=== PATIENT | female | born 1970 | race Two or more races ===

== ENCOUNTER 2023-12-25 22:20 | Emergency (ER) | payer MEDICAID ==
[~2023-12-25] VITALS: Ht 160 cm; Wt 61.3 kg
[2023-12-26] MEDS: KETOROLAC TROMETH 60MG/2ML VIAL IM ONE (00:36)
[2023-12-26 01:36] VITALS: BP 111/64; TEMP 97.9
[2023-12-26 01:45] VITALS: PULSE 63; RESP 14; O2SAT 98
[2023-12-26] MEDS ORDERED: IBUP-1455 PO (01:53)
[2023-12-26] MEDS ORDERED: ACE3T PO (01:53)
== END 2023-12-26 02:12 | disposition home or self-care (01) ==
LOC: ER 22:20
DX: S39.012A Strain of muscle, fascia and tendon of lower back, initial encounter (principal); M41.9 Scoliosis, unspecified; V89.2XXA Person injured in unspecified motor-vehicle accident, traffic, initial encounter; Y93.89 Activity, other specified; Y92.89 Other specified places as the place of occurrence of the external cause; Y99.8 Other external cause status
CPT/HCPCS: 72100; 96372; 99283; J1885

== ENCOUNTER 2025-01-01 10:10 | Emergency (ER) | payer MEDICAID ==
[~2025-01-01] VITALS: Ht 160 cm; Wt 63.0 kg
[~2025-01-01 10:10] MED LIST: ACE3T PO; IBUP-1455 PO
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
[2025-01-01] MEDS ORDERED: IBUPROFEN 600 MG TAB PO ONE (10:30)
[2025-01-01 10:34] VITALS: BP 133/85; PULSE 66; RESP 16; TEMP 98; O2SAT 98
== END 2025-01-01 13:30 | disposition left against medical advice (07) ==
LOC: EDBD 10:10 → ER 10:10
DX: S29.012A Strain of muscle and tendon of back wall of thorax, initial encounter (principal); Z79.899 Other long term (current) drug therapy; V89.2XXA Person injured in unspecified motor-vehicle accident, traffic, initial encounter; Y93.89 Activity, other specified; Y92.89 Other specified places as the place of occurrence of the external cause; Y99.8 Other external cause status

== ENCOUNTER 2025-01-19 07:07 | Emergency (ER) | payer MEDICAID ==
[~2025-01-19] VITALS: Ht 160 cm; Wt 61.3 kg
--- NOTE | 2025-01-19 07:50 | ED.PDOC ---
Back pain HPI HPI Comments A 54-YEAR-OLD FEMALE PRESENTS WITH A CHIEF COMPLAINT OF BACK PAIN. PATIENT STATES THAT SHE HAS CHRONIC BACK PAIN FOR THE PAST FEW YEARS. PATIENT MENTIONS THAT SHE HAS SCOLIOSIS. PATIENT REPORTS THAT HER BACK PAIN IS LOCALIZED TO HER RIGHT LUMBAR REGION, RADIATING DOWN TO HER RIGHT LEG. PATIENT DENIES FEVER, CHILLS, SHORTNESS OF BREATH, CHEST PAIN, ABDOMINAL PAIN, NAUSEA, VOMITING, HEADACHE, OR OTHER COMPLAINTS. NO OTHER SYMPTOMS OR MODIFYING FACTORS AT THIS TIME. PATIENT IS ALERT, ORIENTED X 4, AND HAS STEADY GAIT. Chief Complaint: Back Pain Time Seen by MD: 07:47 Reviewed Notes: Nurses Notes, Medications, Allergies Allergies: Coded Allergies: NO KNOWN ALLERGIES (Unverified , 01/01/25) Home Meds Active Scripts Tramadol HCl (Tramadol HCl) 50 Mg Tab, 50 MG PO BID, #20 TAB Prov:BRITTANY GASPAR PA 01/19/25 Acetaminophen W/ Codeine (Tylenol W/Cod #3) 1 Tab Tb, 1 TAB PO Q6HP PRN, #20 TAB Prov:HEIDI BERNAL PAC 12/26/23 Ibuprofen Micronized (Ibuprofen) 800 Mg Tab, 800 MG PO Q8HP PRN, #30 TAB Prov:HEIDI BERNAL PAC 12/26/23 Information Source: Patient Mode of Arrival: Ambulatory Timing: Days, Months Duration: Intermittent, Days Location of Back pain: (R) Lumbar Radiates to: Anterior: (R) Buttocks, (R) Thigh Radiates to: Posterior: (R) Thigh Radiates to: Medial: (R) Buttocks, (R) Thigh Severity: Moderate Prehospital treatment: None Quality: Aching, Burning, Cramping, Sharp Onset: Spontaneous Circumstance: Other History of: Chronic Back Pain Associated signs and symptoms: None Past Medical History Past Medical History (Other): CHRONIC BACK PAIN, SCOLIOSIS Surgical History: Denies all surgeries NEWS VIDEOTAPE EDITOR History: No Pertinent NEWS VIDEOTAPE EDITOR History Family History Family History: Reviewed,noncontributory to illness, No family hx of Cancer, No family hx of DM, No family hx of Heart efren, No family hx of HTN, No family hx ofKidney efren, No family hx of Liver efren, No family hx of Lung efren, No family hx of Stroke Social History Smoker: Non-Smoker Alcohol: Denies ETOH Use Drugs: Denies Drug Use Lives In: Home Constitutional: denies: chills, diaphoresis, fatigue, fever, malaise, sweats, weakness, others EENTM: denies: blurred vision, double vision, ear bleeding, ear discharge, ear drainage, ear pain, ear ringing, eye pain, eye redness, hearing loss, mouth pain, mouth swelling, nasal discharge, nose bleeding, nose congestion, nose pain, photophobia, tearing, throat pain, throat swelling, voice changes, others Respiratory: denies: cough, hemoptysis, orthopnea, SOB at rest, shortness of breath, SOB with excertion, stridor, wheezing, others Cardiovascular: denies: chest pain, dizzy spells, diaphoresis, Dyspnea on exertion, edema, irregular heart beat, left arm pain, lightheadedness, palpitations, PND, syncope, others Gastrointestinal: denies: abdomen distended, abdominal pain, blood streaked bowels, constipated, diarrhea, dysphagia, difficulty swallowing, hematemesis, melena, nausea, poor appetite, poor fluid intake, rectal bleeding, rectal pain, vomiting, others Genitourinary: denies: abnormal vagina bleeding, burning, dyspareunia, dysuria, flank pain, frequency, hematuria, incontinence, pain, , vagina discharge, urgency, others Neurological: denies: dizziness, fainting, headache, left sided numbness, left sided weakness, numbness, paresthesia, pre-existing deficit, right sided n umbness, right sided weakness, seizure, speech problems, tingling, tremors, weakness, others Musculoskeletal: reports: back pain, muscle pain; denies: gout, joint pain, joint swelling, muscle stiffness, neck pain, others Integumetry: denies: bruises, change in color, change in hair/nails, dryness, laceration, lesions, lumps, rash, wounds, others Allergic/Immunocompromised: denies: Difficulty Healing, Frequent Infections, Hives, Itching, others Hematologic/Lymphatic: denies: anemia, blood clots, easy bleeding, easy bruising, swollen glands, others Endocrine: denies: excessive hunger, excessive sweating, excessive thirst, excessive urination, flushing, intolerance to cold, intolerance to heat, unexplained weight gain, unexplained weight loss, others Psychiatric: denies: anxiety, bipolar disorder, depression, hopeless, panic disorder, schizophrenia, sleepless, suicidal, others All Other Systems: Reviewed and Negative Physical Exam General Appearance: No Apparent Distress, Normal HEENT: Normal ENT Inspection, PERRL/EOMI, Pharynx Normal, TMs Normal Neck: Full Range of Motion, Non-Tender, Normal, Normal Inspection Respiratory: Chest Non-Tender, Lungs Clear, No Accessory Muscle Use, No Respiratory Distress, Normal Breath Sounds Cardiovascular: No Edema, No JVD, No Murmur, No Gallop, Normal Peripheral Pulses, Regular Rate/Rhythm Breast Exam: Deferred Gastrointestinal: No Organomegaly, Non Tender, No Pulsatile Mass, Normal Bowel Sounds, Soft Genitalia: Deferred Pelvic: Deferred Rectal: Deferred Extremities: Decreased range of motion, No calf tenderness, Normal capillary refill, No pedal edema, Tender (AND MILD SWELLING ON RIGHT THIGH, NO BONY TENDERNESS AND DEFORMITY, NO DVT SIGNS. ) Musculoskeletal : Location: Bilateral Extremity Location: Back Apperance: Tenderness: Moderate (MUSCLE SPASM ON LOWER BACK, NO BONY TENDERNESS, SWELLING AND DEFORMITY. ) Neurologic: Alert, hematology oncology consultant II-XII nml as Tested, No Motor Deficits, Normal Affect, Normal Mood, No Sensory Deficits Cerebellar Function: Normal Reflexes: Normal Skin: Dry, Normal Color, Warm Peripheral Pulses: 2+ carotid (R), 2+ carotid (L), 2+ dorsalis pedis (R), 2+ dorsalis pedis (L) Lymphatic: No Adenopathy Was a procedure done? Was a procedure done?: No Back Pain Differential Dx Differential Diagnosis: Musculoskeletal Pain, Strain, Other (DVT OF RIGHT LOWER EXTREMITY) X-Ray, Labs, Meds, VS Vital Signs Date Time Temp Pulse Resp B/P (MAP) Pulse Ox O2 Delivery O2 Flow Rate FiO2 01/19/25 07:38 97.5 65 18 120/75 99 97.5 Current Medications Medications (Trade) Dose Ordered Sig/Abelardo Route Start Time Stop Time Status Last Admin Acetaminophen (Tylenol Tablet Or Capsule) 1,000 mg ONCE ONCE PO 01/19/25 08:00 01/19/25 08:01 DC 01/19/25 07:55 X-Ray, Labs, Meds, VS Comment EXTERNAL MEDICAL RECORDS REVIEWED: [NONE] INDEPENDENT HISTORIANS: [NONE] SOCIAL DETERMINANTS OF HEALTH: [NONE] LABS ORDERED: NONE REVIEWED AND INTERPRETED RESULTS: NONE IMAGING ORDERED: RIGHT DVT ULTRASOUND: PER NURSING HOME DIRECTOR VINAY, NEGATIVE FOR RLE DVT, PENDING RADIOLOGIST REPORT. TREATMENTS ORDERED: TYLENOL 1000MG PO PROCEDURES PERFORMED: NONE CRITICAL CARE TIME: NONE I HAVE DISCUSSED THE PATIENT WITH THE ATTENDING PHYSICIAN DR. WALTER AND HE AGREES WITH THE PATIENT'S PLAN OF CARE AND DISPOSITION. BASED ON HISTORY OF PRESENT ILLNESS, AND PHYSICAL EXAM, PATIENT WILL BE DISCHARGED HOME. DISCUSSED PLAN FOR DISCHARGE HOME WITH RX [TRADOL 50MG]. MEDICATION WARNINGS GIVEN. SHARED DECISION MAKING: DISCUSSED WITH PATIENT THAT THEIR WORKUP WAS NORMAL. PATIENT INSTRUCTED TO FOLLOW UP WITH PRIMARY CARE PROVIDER IN 1-2 DAYS FOR RE- EVALUATION OF SYMPTOMS. PATIENT VERBALIZES UNDERSTANDING TO RETURN TO ED FOR NEW OR WORSENING SYMPTOMS OR IF FOLLOW UP WITH PCP CANNOT BE OBTAINED. PATIENT FEELS COMFORTABLE GOING HOME AT THIS TIME. ALL QUESTIONS ADDRESSED AT TIME OF DISCHARGE. Time of 1ST Reevaluation: 08:40 Reevaluation 1ST: Improved Patient Education/Counseling: Diagnosis, Treatment, Need For Follow Up Family Education/Counseling: Diagnosis, Treatment, No Family Present Medical Screening: No EMC Exist At This Time SEPSIS Sepsis Screen Date sepsis recognized/suspect: Jan 19, 2025 Time Sepsis recognized/suspect: 714 Recent Procedure: No On Antibiotic Therapy: No Respiratory Rate >20: No Heart Rate >90: No Temp<36 C (96.8 F) or >38.3 C: No SBP <90 or MAP <65 mmHG: No New Acute Mental Status Change: No Is the patient on CPAP, BIPAP,: No Physician Orders Rt Lower Dvt (01/19/25 07:47) Vital Signs Date Time Temp Pulse Resp B/P (MAP) Pulse Ox O2 Delivery O2 Flow Rate FiO2 01/19/25 07:38 97.5 65 18 120/75 99 97.5 Medications Medications Dose Ordered Sig/Abelardo Route Start Time Stop Time Status Last Admin Dose Admin Acetaminophen 1,000 mg ONCE ONCE PO 01/19/25 08:00 01/19/25 08:01 DC 01/19/25 07:55 Departure 1 Departure Time of Disposition: 08:40 Impression: Primary Impression: DDD (degenerative disc disease), lumbosacral Qualified Codes: M51.372 - Other intervertebral disc degeneration, sheng mbosacral region with discogenic back pain and lower extremity pain Additional Impressions: Lumbar radiculopathy Acute exacerbation of chronic low back pain Disposition: 01 HOME / SELF CARE / HOMELESS Condition: Stable Additional Instructions: FOLLOW UP WITH YOUR PCP IN 1-2 DAYS. RETURN TO THE ER IF YOUR SYMPTOMS WORSEN. e-Prescriptions Tramadol HCl (Tramadol HCl) 50 Mg Tab 50 MG PO BID, #20 TAB Prov: BRITTANY GASPAR 01/19/25 Discharged With: Self Critical Care Note Critical Care Time?: No Stability Stability form required: No Heart Score Heart Score: Heart Score Response (Comments) Value History N/A 0 EKG N/A 0 Age N/A 0 Risk Factors N/A 0 Troponin N/A 0 Total 0 I personally scribed for BRITTANY GASPAR ([email or web address]) on 01/19/25 at 07:50. Electronically submitted by Tone Carrillo ([email or web address]). I personally scribed for BRITTANY GASPAR ([email or web address]) on 01/19/25 at 08:25. Electronically submitted by Tone Carrillo ([email or web address]). BRITTANY GASPAR Jan 19, 2025 07:50
[2025-01-19] MEDS: ACETAMINOPHEN 500 MG TAB or CAP PO ONE (07:55)
[2025-01-19] MEDS ORDERED: TRAM-626 PO (08:27)
[2025-01-19 08:31] VITALS: BP 108/90; PULSE 57; RESP 18; TEMP 98; O2SAT 98
--- NOTE | 2025-01-19 08:31 | DVH ---
Right lower extremity venous duplex Clinical History: RIGHT THIGH PAIN Comparison: None Technique: Duplex Doppler evaluation of the deep venous system of the right lower extremity from the common femo ral vein to the popliteal vein including color Doppler and spectral/pulsed waveform analysis was perf ormed. Findings: The common femoral vein demonstrates appropriate compressibility and waveform variability. There is compressibility/patency of the great saphenous vein at the proximal thigh. The femoral vein demonstrates appropriate compressibility and waveform variability. The deep femoral vein demonstrates appropriate compressibility and waveform variability. The popliteal vein demonstrates appropriate compressibility and waveform variability. There is normal compressibility at the tibioperoneal trunk. Impression: No right femoropopliteal venous thrombosis.
== END 2025-01-19 08:35 | disposition home or self-care (01) ==
LOC: ER 07:07
DX: M51.370 Other intervertebral disc degeneration, lumbosacral region with discogenic back pain only (principal); G89.29 Other chronic pain; M41.9 Scoliosis, unspecified; Z79.899 Other long term (current) drug therapy
CPT/HCPCS: 93971

== ENCOUNTER 2025-02-02 22:18 | Inpatient (IN) | payer MEDICAID ==
[~2025-02-02] VITALS: Ht 154.9 cm; Wt 52.1 kg
[~2025-02-02 22:18] MED LIST changes: +TRAM-626 PO
[2025-02-02] MEDS: EPINEPHrine HCL 250 ML IV SCH (22:40)
[2025-02-02] MEDS: AMIODARONE 360mg/200mL PREMIX 200 ML IV ONE ×3 (22:40→23:00)
[2025-02-02] MEDS: NOREPINEPHRINE 8 MG/250ML KIT 250 ML IV SCH (22:40)
[2025-02-02] MEDS: MIDAZOLAM DRIP 50 mg/50mL 50 ML IV SCH (22:40)
[2025-02-02] MEDS ORDERED: EPINEPHrine HCL 250 ML IV SCH (22:45)
--- NOTE | 2025-02-02 22:47 | ED.PDOC ---
CPR-HPI HPI Comments 54-year-old female came to ER via a cardiac arrest. Per EMS, was found by patients partner lying unresponsive. Unknown downtime. Call receive at 9:53 p.m., and arrived on scene at 10:07 p.m. were bystander CPR was being done. Patient is still unresponsive, pulseless, asystole. CPR initiated, intubated, placed on autopulse, IV fluids given and epinephrine x3 given. Patient remained asystole until their arrival at the ER at 10:18 p.m. CPR continued of the ER, able to obtain ROSC at 10:25 p.m. Blood sugar on scene was 129 ROS: Unable to obtain General: Patient is unresponsive HEENT: Pupils fixed, dilated, nonreactive. There is no corneal reflex. Cardiac: S1-S2 heard , no murmur Abdomen: Soft, nondistended Respiratory: Intermittent breath sounds over ventilator. Rales bilaterally. Skin: Cool, mottled at the feet. Neuro: GCS 3, patient is unresponsive to painful stimulus, Chief Complaint: CPR Time Seen by MD: 22:46 Reviewed Notes: Presser Automatic Notes Allergies: Coded Allergies: NO KNOWN ALLERGIES (Unverified , 01/01/25) Home Meds Active Scripts Tramadol HCl (Tramadol HCl) 50 Mg Tab, 50 MG PO BID, #20 TAB Prov:BRITTANY GASPAR 01/19/25 Acetaminophen W/ Codeine (Tylenol W/Cod #3) 1 Tab Tb, 1 TAB PO Q6HP PRN, #20 TAB Prov:HEIDI BERNAL PAC 12/26/23 Ibuprofen Micronized (Ibuprofen) 800 Mg Tab, 800 MG PO Q8HP PRN, #30 TAB Prov:HEIDI BERNAL PAC 12/26/23 Information Source: Emergency Med Personnel Mode of Arrival: Ambulatory Duration: Down time prior EMS: (Unknown) Onset: Unknown Available Hx: Unknown Inital rhythm: Asystole Treatment: CPR, Intubation, Defibrillation, IV, Epinephrine Response: Sustained return of pulse Associated signs and symptoms: Unknown Past Medical History PAST MEDICAL HISTORY: Unobtainable Surgical History: Unobtainable COMMERCIAL LOAN ADMINISTRATOR History: No Pertinent COMMERCIAL LOAN ADMINISTRATOR History, Unobtainable Family History Family History: Unobtainable Social History Smoker: Unobtainable Alcohol: Unobtainable Drugs: Unobtainable Lives In: Home Was a procedure done? 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 Indication: Volume resuscitation, Inability to obtain IV Room prepared for procedure: Yes Review Consultant performed hand hygien: Yes Maximal sterile barrier precau: Mask/Eye shield, Sterile gown, Cap, Sterlie gloves, Large sterlie drape Skin Preparation: Providine iodine Skin preparation completely dr: Yes Insertion site: Right, Femoral Central line catheter type: Tunneled- not dialysis Number of lumens: 3 Central line exchanged over a: Yes Antiseptic ointment applied to: Yes Post Assessment: Proper placement Informed consent obtained: No Risks/benefits/alt described: No Differential Dx CPR Differential Diagnosis: Cardiopulmonary arrest, Cardiogenic shock, Electrolyte disorder, Myocardial Infarction, Pulmonary Embolus, Respiratory Failure, Other X-Ray, Labs, Meds, VS Vital Signs Date Time Temp Pulse Resp B/P (MAP) Pulse Ox O2 Delivery O2 Flow Rate FiO2 02/03/25 02:45 101.3 77 14 121/68 (85) 100 101.3 02/03/25 02:38 74 02/03/25 02:30 100.0 73 15 136/79 (98) 100 100.0 02/03/25 02:30 136/79 02/03/25 02:15 99.8 75 25 143/84 (103) 100 99.8 02/03/25 02:00 100.0 86 44 142/72 (95) 100 100.0 02/03/25 02:00 138/70 02/03/25 02:00 138/70 02/03/25 02:00 138/70 02/03/25 02:00 138/70 02/03/25 02:00 138/70 02/03/25 01:45 144/78 02/03/25 01:45 99.3 89 46 144/78 (100) 100 99.3 02/03/25 01:40 159/76 02/03/25 01:30 98.8 86 43 160/78 (105) 100 98.8 02/03/25 01:30 84 31 131/89 (103) 99 50 02/03/25 01:30 160/78 02/03/25 01:30 160/78 02/03/25 01:25 154/84 8/15/25 01:20 159/76 02/03/25 01:15 98.2 86 43 149/74 (99) 98 98.2 02/03/25 01:10 91/42 02/03/25 01:00 149/74 02/03/25 01:00 149/74 02/03/25 01:00 149/74 02/03/25 01:00 149/74 02/03/25 01:00 97.3 86 44 100/64 (76) 100 97.3 02/03/25 00:45 96.4 86 31 115/65 (82) 100 96.4 02/03/25 00:40 114/67 02/03/25 00:40 114/67 02/03/25 00:35 121/77 02/03/25 00:30 98.8 86 34 160/78 (105) 100 98.8 02/03/25 00:30 104/66 02/03/25 00:25 104/70 02/03/25 00:20 107/71 02/03/25 00:15 98.2 86 34 130/67 (88) 98 98.2 02/03/25 00:15 106/65 02/03/25 00:15 107/65 02/03/25 00:13 68 20 100 Mechanical Ventilator+ 60 60 02/03/25 00:11 92.4 78 18 71/45 98 100 92.4 02/03/25 00:10 102/66 02/03/25 00:05 92/59 02/03/25 00:00 95.0 76 29 130/67 (88) 100 95.0 02/03/25 00:00 130/67 02/03/25 00:00 130/67 02/03/25 00:00 130/67 02/03/25 00:00 130/67 02/03/25 00:00 77 02/02/25 23:50 111/63 02/02/25 23:45 95.0 75 27 102/73 (83) 100 95.0 02/02/25 23:30 76 23 91/58 (69) 100 02/02/25 23:26 86 02/02/25 23:15 75 21 130/69 (89) 100 02/02/25 23:15 130/69 02/02/25 23:04 78 Ambu-Bag 78 02/02/25 23:02 58 20 53/29 (37) 92 100 02/02/25 23:00 68 13 100/64 (76) 100 02/02/25 23:00 100/64 02/02/25 23:00 100/64 02/02/25 23:00 100/64 02/02/25 22:44 53 17 53/29 (37) 88 02/02/25 22:40 63/37 02/02/25 22:40 63/37 02/02/25 22:40 63/37 02/02/25 22:34 77 02/02/25 22:33 115 24 159/121 (134) 89 02/02/25 22:18 92.4 0 0 0/0 0 92.4 Lab Test 02/03/25 01:40 02/03/25 00:36 02/02/25 23:49 02/02/25 23:40 Range/Units Troponin I High Sensitivity 80168 *H </=34 ng/L Lactic Acid Level 8.2 *H 0.4-2.0 mmol/L Sodium Level 141 136-145 mmol/L Potassium Level 2.1 *L 3.5-5.1 mmol/L Chloride Level 101 98-107 mmol/L Carbon Dioxide Level 18 L 20-31 mmol/L Anion Gap 22 H 5-15 Blood Urea Nitrogen 25 H 9-23 mg/dL Creatinine 1.57 H 0.550-1.02 mg/dL Glomerular Filtration Rate Calc 39 >90 mL/min BUN/Creatinine Ratio 15.9 10.0-20.0 Serum Glucose 362 H 74-106 mg/dL Calcium Level 8.8 8.7-10.4 mg/dL Blood Gas Specimen Type Arterial Blood Gas Sample Site Right radial Blood Gas Patient Temperature 37.0 Arterial Blood Date Drawn [id number] Arterial Blood pH 7.268 L 7.350-7.450 Arterial Blood Partial Pressure CO2 28.7 L 32.0-45.0 mmHg Arterial Blood Partial Pressure O2 356.5 *H 83.0-108.0 mmHg Arterial Blood HCO3 12.8 L 21.0-28.0 mmol/L Arterial Blood Oxygen Saturation 99.8 H 94.0-98.0 % Arterial Blood Base Excess -12.7 L -2.0-3.0 mmol/L Arterial Blood Oxyhemoglobin 98.6 H 94.0-98.0 % Arterial Blood Carboxyhemoglobin 0.6 0.5-1.5 % Arterial Blood Methemoglobin 0.6 0.0-1.5 % Simone Test Yes Blood Gas Total Hemoglobin 12.60 12.0-16.0 g/dL Blood Gas Set Respiration Rate 18.0 Blood Gas Modality Vent - ac FiO2 % 100.0 Blood Gas Tidal Volume 450.0 Blood Gas PEEP or CPAP 5.0 Blood Gas Critical Value Read Back yes Blood Gas Notified Whom Dr. lamb Blood Gas Notified Time [id number] Blood Gas Notified By ned fernandez, rt Test 02/02/25 23:25 02/02/25 22:53 02/02/25 22:30 Range/Units Potassium Level 2.0 *L 2.4 *L 3.5-5.1 mmol/L Troponin I High Sensitivity 3496 *H 316 *H </=34 ng/L Lactic Acid Level 13.2 *H 0.4-2.0 mmol/L White Blood Count 9.2 4.4-10.8 10^3/uL Red Blood Count 4.50 4.0-5.20 10^6/uL Hemoglobin 13.0 12.2-16.2 g/dL Hematocrit 40.3 36.0-46.0 % Mean Corpuscular Volume 89.4 80.0-100.0 fL Mean Corpuscular Hemoglobin 28.8 28.0-32.0 pg Mean Corpuscular Hemoglobin Concent 32.2 32.0-36.0 g/dL Red Cell Distribution Width 15.3 H 11.8-14.3 % Platelet Count 204 140-450 10^3/uL Mean Platelet Volume 9.0 6.9-10.8 fL Neutrophils (%) (Auto) 44.2 37.0-80.0 % Lymphocytes (%) (Auto) 48.2 10.0-50.0 % Monocytes (%) (Auto) 5.4 0.0-12.0 % Eosinophils (%) (Auto) 0.4 0.0-7.0 % Basophils (%) (Auto) 1.8 0.0-2.0 % Neutrophils # (Auto) 4.1 1.6-8.6 10 ^3/uL Lymphocytes # (Auto) 4.4 0.4-5.4 10 ^3/uL Monocytes # (Auto) 0.5 0-1.3 10 ^3/uL Eosinophils # (Auto) 0 0-0.8 10 ^3/uL Basophils # (Auto) 0.2 0-0.2 10 ^3/uL Nucleated Red Blood Cells 0.5 % Prothrombin Time 11.3 9.3-11.8 sec Prothrombin Time INR 1.07 0.9-1.15 Sodium Level 137 136-145 mmol/L Chloride Level 96 L 98-107 mmol/L Carbon Dioxide Level 21 20-31 mmol/L Anion Gap 20 H 5-15 Blood Urea Nitrogen 25 H 9-23 mg/dL Creatinine 1.56 H 0.550-1.02 mg/dL Glomerular Filtration Rate Calc 40 >90 mL/min BUN/Creatinine Ratio 16.0 10.0-20.0 Serum Glucose 305 H 74-106 mg/dL Calcium Level 10.0 8.7-10.4 mg/dL Magnesium Level 3.4 H 1.6-2.6 mg/dL Total Bilirubin 0.4 0.2-1.0 mg/dL Aspartate Amino Transferase (AST) 117 H 13-40 U/L Alanine Aminotransferase (ALT) 60 H 7-40 U/L Alkaline Phosphatase 83 46-116 U/L B-Type Natriuretic Peptide 164.78 0-100 pg/mL Total Protein 5.9 5.7-8.2 g/dL Albumin 3.4 3.2-4.8 g/dL Lipase 30 12-53 U/L Thyroid Stimulating Hormone (TSH) 2.25 0.55-4.78 uIU/mL Plasma/Serum Blood Alcohol 3.1 <10 mg/dL Current Medications Medications (Trade) Dose Ordered Sig/Abelardo Route Start Time Stop Time Status Last Admin Epinephrine HCl 250 ml @ 7.5 mls/hr Q24H IV 02/02/25 22:45 02/02/25 22:40 Norepinephrine Bitartrate 250 ml @ 3.75 mls/hr Q24H IV 02/02/25 22:45 02/03/25 04:03 Midazolam HCl 50 ml @ 1 mls/hr Q24H IV 02/02/25 22:45 02/02/25 22:40 Cefazolin Sodium/ Dextrose 50 ml @ 50 mls/hr ONCE ONCE IV 02/02/25 23:00 02/02/25 23:59 DC 02/02/25 23:00 Fentanyl Citrate 250 ml @ 2.5 mls/hr Q24H IV 02/02/25 23:15 02/02/25 23:15 Potassium Chloride 100 ml @ 50 mls/hr ONCE ONCE IV 02/02/25 23:30 02/03/25 01:29 DC 02/03/25 00:20 Sodium Chloride 1,000 ml @ 1,000 mls/hr Q1H ONCE IV 02/03/25 00:30 02/03/25 01:29 DC 02/03/25 00:30 Sodium Chloride 1,000 ml @ 130 mls/hr Q7H42M ONCE IV 02/03/25 00:30 02/03/25 08:11 02/03/25 00:20 Propofol 100 ml @ 1.565 mls/ hr Q24H IV 02/03/25 02:00 02/03/25 02:00 Time of 1ST Reevaluation: 22:31 Reevaluation 1ST: Unchanged Patient Education/Counseling: Pt Unresponsive Family Education/Counseling: No Family Present SEPSIS Sepsis Screen Physician Orders Drug Screen (02/02/25 22:34) Covid19 Antigen Alva (02/02/25 ) Rapid Influenza A&B (02/02/25 22:34) Urinalysis (02/02/25 22:34) Head Without Contrast (02/02/25 22:34) Electrocardigram (02/02/25 22:34) Blood Culture (02/02/25 22:34) Saline Lock (02/02/25 22:34) Manager Sales Training (02/02/25 ) Straight Cath. (02/02/25 ) Electrocardigram (02/02/25 19:21) Electrocardigram (02/02/25 21:21) Electrocardigram (02/02/25 23:34) Epinephrine Hcl (02/02/25 22:45) Amiodarone 360mg/200ml Premix (Nexterone (02/03/25 05:00) Norepinephrine 8 Mg/250ml Kit (Levophed) (02/02/25 22:45) Midazolam Drip 50 Mg/50ml (Versed Drip 5 (02/02/25 22:45) Communication Order (02/02/25 22:49) Communication Order (02/02/25 22:55) Ventilator Orders (02/02/25 23:01) Respiratory Culture W/ Gs (02/02/25 23:01) Fentanyl Drip 2500mcg/250mlns (02/02/25 23:15) Chest Portable (02/02/25 23:14) Abg W/ Co-Ox (02/02/25 23:20) Insert/Manage Urinary Catheter QSHIFT (02/03/25 00:09) Ngt/Ogt (02/03/25 ) Communication Order (02/03/25 00:00) Sodium Chloride 0.9% (02/03/25 00:30) Communication Order (02/03/25 00:42) Propofol (Diprivan) (02/03/25 02:00) Electrocardigram (02/03/25 02:29) Rectal/Core Temps Only (02/03/25 02:34) Vital Signs Date Time Temp Pulse Resp B/P (MAP) Pulse Ox O2 Delivery O2 Flow Rate FiO2 02/03/25 02:45 101.3 77 14 121/68 (85) 100 101.3 02/03/25 02:38 74 02/03/25 02:30 100.0 73 15 136/79 (98) 100 100.0 02/03/25 02:30 136/79 02/03/25 02:15 99.8 75 25 143/84 (103) 100 99.8 02/03/25 02:00 100.0 86 44 142/72 (95) 100 100.0 02/03/25 02:00 138/70 02/03/25 02:00 138/70 02/03/25 02:00 138/70 02/03/25 02:00 138/70 02/03/25 02:00 138/70 02/03/25 01:45 144/78 02/03/25 01:45 99.3 89 46 144/78 (100) 100 99.3 02/03/25 01:40 159/76 02/03/25 01:30 98.8 86 43 160/78 (105) 100 98.8 02/03/25 01:30 84 31 131/89 (103) 99 50 02/03/25 01:30 160/78 02/03/25 01:30 160/78 02/03/25 01:25 154/84 02/03/25 01:20 159/76 02/03/25 01:15 98.2 86 43 149/74 (99) 98 98.2 02/03/25 01:10 91/42 02/03/25 01:00 149/74 02/03/25 01:00 149/74 02/03/25 01:00 149/74 02/03/25 01:00 149/74 02/03/25 01:00 97.3 86 44 100/64 (76) 100 97.3 02/03/25 00:45 96.4 86 31 115/65 (82) 100 96.4 02/03/25 00:40 114/67 02/03/25 00:40 114/67 02/03/25 00:35 121/77 02/03/25 00:30 98.8 86 34 160/78 (105) 100 98.8 02/03/25 00:30 104/66 02/03/25 00:25 104/70 02/03/25 00:20 107/71 02/03/25 00:15 98.2 86 34 130/67 (88) 98 98.2 02/03/25 00:15 106/65 02/03/25 00:15 107/65 02/03/25 00:13 68 20 100 Mechanical Ventilator+ 60 60 02/03/25 00:11 92.4 78 18 71/45 98 100 92.4 02/03/25 00:10 102/66 02/03/25 00:05 92/59 02/03/25 00:00 95.0 76 29 130/67 (88) 100 95.0 02/03/25 00:00 130/67 02/03/25 00:00 130/67 02/03/25 00:00 130/67 02/03/25 00:00 130/67 02/03/25 00:00 77 02/02/25 23:50 111/63 02/02/25 23:45 95.0 75 27 102/73 (83) 100 95.0 02/02/25 23:30 76 23 91/58 (69) 100 02/02/25 23:26 86 02/02/25 23:15 75 21 130/69 (89) 100 02/02/25 23:15 130/69 02/02/25 23:04 78 Ambu-Bag 78 02/02/25 23:02 58 20 53/29 (37) 92 100 02/02/25 23:00 68 13 100/64 (76) 100 02/02/25 23:00 100/64 02/02/25 23:00 100/64 02/02/25 23:00 100/64 02/02/25 22:44 53 17 53/29 (37) 88 02/02/25 22:40 63/37 02/02/25 22:40 63/37 02/02/25 22:40 63/37 02/02/25 22:34 77 02/02/25 22:33 115 24 159/121 (134) 89 02/02/25 22:18 92.4 0 0 0/0 0 92.4 Laboratory Tests Test 02/02/25 22:30 02/02/25 22:53 02/03/25 00:36 White Blood Count 9.2 10^3/uL (4.4-10.8) Lactic Acid Level 13.2 mmol/L (0.4-2.0) *H 8.2 mmol/L (0.4-2.0) *H Medications Medications Dose Ordered Sig/Abelardo Route Start Time Stop Time Status Last Admin Dose Admin Cefazolin Sodium/ Dextrose 50 ml @ 50 mls/hr ONCE ONCE IV 02/02/25 23:00 02/02/25 23:59 DC 02/02/25 23:00 Epinephrine HCl 250 ml @ 7.5 mls/hr Q24H IV 02/02/25 22:45 02/02/25 22:40 Fentanyl Citrate 250 ml @ 2.5 mls/hr Q24H IV 02/02/25 23:15 02/02/25 23:15 Midazolam HCl 50 ml @ 1 mls/hr Q24H IV 02/02/25 22:45 02/02/25 22:40 Norepinephrine Bitartrate 250 ml @ 3.75 mls/hr Q24H IV 02/02/25 22:45 02/03/25 04:03 Potassium Chloride 100 ml @ 50 mls/hr ONCE ONCE IV 02/02/25 23:30 02/03/25 01:29 DC 02/03/25 00:20 Propofol 100 ml @ 1.565 mls/ hr Q24H IV 02/03/25 02:00 02/03/25 02:00 Sodium Chloride 1,000 ml @ 130 mls/hr Q7H42M ONCE IV 02/03/25 00:30 02/03/25 08:11 02/03/25 00:20 Sodium Chloride 1,000 ml @ 1,000 mls/hr Q1H ONCE IV 02/03/25 00:30 02/03/25 01:29 DC 02/03/25 00:30 Departure 1 Departure Time of Disposition: 00:29 Impression: Primary Impression: Cardiac arrest Additional Impressions: Hypokalemia Metabolic acidosis NSTEMI (non-ST elevated myocardial infarction) Ventricular fibrillation Disposition: ADMITTED INPATIENT Condition: Critical Comments 54-year-old female presented to the emergency department via EMS in cardiac arrest, having been intubated in the field. Upon arrival, cardiac compressions were initiated by staff to maintain blood flow, and the patient was ventilated and oxygenated. Appropriate ACLS measures were administered and repeated as necessary throughout the resuscitation, with CPR performed under my direct supervision and guidance.(See patient resuscitation status note for medications and times given.) ROSC was achieved. A central line was placed, and the patient was started on pressors and an amiodarone drip for VFib rhythm noted during the code. She was sedated. The patient was found to be hypokalemic, and potassium was replaced. Troponin levels were increasing, possibly secondary to cardiac compressions, serial EKGs showed no ST elevations. Discussed with Dr. Sousa, given rising troponin will start heparin for possible NSTEMI and consult cardiology. Antibiotics were initiated, and a CT head revealed no acute intracranial process process. The patient was subsequently admitted to the hospitalist service for further treatment, evaluation, and monitoring. Extensive evaluation was performed in attempt to identify or rule out: (See differential diagnosis section) The following tests were ordered, and results were reviewed by me and discussed with patient: (See diagnostic results section) The following test were independently interpreted by me: EKG I reviewed and agreed with the following test results read by other providers: Chest x-ray, CT head I reviewed the following notes from the pt's past medical encounters: January 19, 2025, degenerative disc disease Additional information was gathered from interviewing the following independent historians: EMS personnel Discussion of management or test interpretation with external physician/other qualified health care consultant: Dr. Sousa Addressed an acute or chronic illness that poses a threat to life or bodily function: Cardiac arrest, metabolic acidosis, NSTEMI, hypokalemia, ventricular fibrillation Decision regarding hospitalization or escalation of hospital level of care: Risk and benefits of admission for further treatment of patient's condition was considered. Due to patient's current clinical condition, high risk of decline and poor outcome if discharged and need for further inpatient management and monitoring, patient will be admitted to the hospital. Discussed with patient. Drug therapy requiring intensive monitoring for toxicity: IV Levophed, IV epinephrine, IV sodium bicarb , IV calcium, IV magnesium Parenteral controlled substances: IV propofol, IV fentanyl, midazolam, Decision regarding elective major surgery with identified patient or procedure risk factors: N/A Decision regarding emergency major surgery: N/A Decision not to resuscitate or to de-escalate care because of poor prognosis: N/A Diagnosis or treatment significantly limited by social determinants of health: N/A Critical Care Note Critical Care Time?: Yes (1 hr-critical care time only) Critical care comment: Due to a high probability of clinically significant, life threatening deterioration, the patient required my highest level of preparedness to intervene emergently and I personally spent this critical care time directly and personally managing the patient. This critical care time included obtaining a history; examining the patient; pulse oximetry; ordering and review of studies; arranging urgent treatment with development of a management plan; evaluation of patient's response to treatment; frequent reassessment; and, discussions with other providers. This critical care time was performed to assess and manage the high probability of imminent, life-threatening deterioration that could result in multi-organ failure. It was exclusive of separately billable procedures and treating other patients and teaching time. Please see my other sections and the rest of the note for further information on patient assessment and treatment. Heart Score Heart Score: Heart Score Response (Comments) Value History N/A 0 EKG N/A 0 Age N/A 0 Risk Factors N/A 0 Troponin N/A 0 Total 0 Stability Stability form required: No I personally scribed for SAKSHI RAJAN MD ([email or web address]) on 02/02/25 at 22:47. Electronically submitted by Ryan Ramirez ([email or web address]). SAKSHI RAJAN MD Feb 02, 2025 22:47
[2025-02-02 22:53] LABS: Hematocrit 40.3 % (36.0-46.0); Hemoglobin 13.0 g/dL (12.2-16.2); Mean Corpuscular Hemoglobin 28.8 pg (28.0-32.0); Mean Corpuscular Volume 89.4 fL (80.0-100.0); Nucleated Red Blood Cells % 0.5 %
[2025-02-02] MEDS: EPINEPHrine HCL 1 MG/10 ML SYRG ONE (22:54)
[2025-02-02] MEDS: EPINEPHrine HCL 250 ML IV ONE (22:54)
[2025-02-02] MEDS: MIDAZOLAM DRIP 50 mg/50mL 50 ML IV ONE (22:54)
[2025-02-02] MEDS: NOREPINEPHRINE 8 MG/250ML KIT 250 ML IV ONE (22:54)
[2025-02-02 22:58] LABS: Albumin 3.4 g/dL (3.2-4.8); Alkaline Phosphatase 83 U/L (46-116); Anion Gap 20 (5-15); BUN/Creatinine Ratio 16.0 (10.0-20.0); Bilirubin, Total 0.4 mg/dL (0.2-1.0); Calcium 10.0 mg/dL (8.7-10.4); Carbon Dioxide 21 mmol/L (20-31); Lipase 30 U/L (12-53); Sodium 137 mmol/L (136-145); Total Protein 5.9 g/dL (5.7-8.2)
[2025-02-02 23:00] LABS: Alanine Aminotransferase 60 U/L (7-40); Blood Urea Nitrogen 25 mg/dL (9-23); Chloride 96 mmol/L (98-107); Glucose 305 mg/dL (74-106); INR 1.07 (0.9-1.15); Magnesium 3.4 mg/dL (1.6-2.6); Prothrombin Time 11.3 sec (9.3-11.8)
[2025-02-02] MEDS: ceFAZolin 2 GM/D5W50ml 50 ML IV ONE (23:00)
[2025-02-02 23:02] VITALS: BP 53/29; PULSE 58; RESP 20; O2SAT 92
[2025-02-02 23:02] LABS: Potassium 2.4 mmol/L (3.5-5.1)
--- NOTE | 2025-02-02 23:05 | RESUS ---
CODE BLUE ASSESSSMENT History of Events History of Events: Pt BIBA with CPR in-progress via autopulse. Per EMS, pt was found by boyfriend with an unknown downtime and an unknown last seen time. Bystander CPR being performed on their arrival. Pt asystole; IO initiated to L proximal tibia with Epi x3 given en route, last dose approx 4mins prior to arrival to ER. Pt intubated with by EMS. Initial Information Date: Feb 02, 2025 Time: 22:18 Location of Arrest: In Field Arrest Witnessed: No CPR started initial time: 21:53 CPR started by whom: Bystander Pre-Hospital Care: ACLS Type of arrest: Cardiac, Respiratory, Adult, Unwitnessed Spontaneous Respirations: No Pulse Present: No Monitoring: ECG, Pulse Oximetry, Telemetry Crash Cart Opened and Supplies: Yes Airway Ventilation Breathing at Onset: Assisted Oxygen Delivery Method: Ambu-Bag Time of first Assisted Ventila: 22:18 Artificial Ventilation: Bag/Endo tube Intubation Size: 7.0 cuffed Intubated by: EMS rebrander Intubation Attempts: 1 Intubated orally: Yes Intubated Nasaly: No Tube secured at: 26 (cm @ teeth) CO2 indicator used: Yes Confirmation: Auscultation, Exhaled CO2 Comments: ETT adjusted to 25 cm by RT Kandy Scott Circulation Circulation #1: Time: 22:18 Pulse Rate (adult): 0 Blood Pressure Systolic: 0 Blood Pressure Diastolic: 0 Temperature (Fahrenheit): 92.4 (F; rectal) Circulation #2: Time: 22:20 Pulse Rate (adult): 0 Blood Pressure Systolic: 0 Blood Pressure Diastolic: 0 Circulation Comment: Vfib Circulation #3: Time: 22:23 Pulse Rate (adult): 0 Blood Pressure Systolic: 0 Blood Pressure Diastolic: 0 Circulation Comment: Asystole Circulation #4: Time: 22:25 Pulse Rate (adult): 47 Circulation Comment: ROSC Circulation #5: Time: 22:26 Pulse Rate (adult): 0 Blood Pressure Systolic: 0 Blood Pressure Diastolic: 0 Circulation Comment: Pulses lost; VFib; CODE BLUE Circulation #6: Time: 22:28 Pulse Rate (adult): 38 Circulation Comment: ROSC Circulation #7: Time: 22:29 Pulse Rate (adult): 0 Blood Pressure Systolic: 0 Blood Pressure Diastolic: 0 Circulation Comment: Pulses lost; VFib; CODE BLUE Circulation #8: Time: 22:31 Pulse Rate (adult): 78 Blood Pressure Systolic: 71 Blood Pressure Diastolic: 45 Circulation Comment: ROSC Defibrillation Defbrillation #1: Time Defibrillator Applied: : EKG Rhythm: V-Fibrillation Compressions: Device (Autopulse) Time Defibrillator Shocked Pt.: 22: Defib. Joules: 120 Pulse Present: No Defbrillation #2: Time Defibrillator Applied: :25 EKG Rhythm: V-Fibrillation Compressions: Manual Time Defibrillator Shocked Pt.: 22:25 Defib. Joules: 150 Pulse Present: No EKG Rhythm: V-Fibrillation Defbrillation #3: Time Defibrillator Applied: : EKG Rhythm: V-Fibrillation Compressions: None Time Defibrillator Shocked Pt.: 22: Defib. Joules: 200 Pulse Present: Yes Defbrillation #4: Time Defibrillator Applied: : EKG Rhythm: V-Fibrillation Compressions: None Time Defibrillator Shocked Pt.: 22:29 Defib. Joules: 200 Pulse Present: Yes Procedure - IV Procedure - IV : IV start time: : IV Side: Left IV Location: Antecubital IV Catheter Type: Saline Lock IV Placed: In Hospital IV Placed by Lilly Khan RN IV Gauge: 20 IV Line Care: Saline Flush Medications & Response Medications and Responses #1: Medication Time: 22:19 ADULT Medications Given ADULT: Epinephrine 1 mg Route of Administration: IO Heart Rate: 0 Blood Pressure Systolic: 0 Blood Pressure Diastolic: 0 Respiratory Rate: 0 Medications and Responses #2: Medication Time: 22:22 ADULT Medications Given ADULT: Sodium Bacarbinate 50 meq Route of Administration: IO Heart Rate: 0 Blood Pressure Systolic: 0 Blood Pressure Diastolic: 0 Respiratory Rate: 0 O2 Sat by Pulse Oximetry: 0 Medications and Responses #3: Medication Time: 22:23 ADULT Medications Given ADULT: Epinephrine 1 mg, Calcium Chloride 10 mL Route of Administration: IO Heart Rate: 0 Blood Pressure Systolic: 0 Blood Pressure Diastolic: 0 Respiratory Rate: 0 Medications and Responses #4: Medication Time: 22:24 ADULT Medications Given ADULT: Amiodarone 300 mg, Magnesium Sulfate 2 gm Route of Administration: IO Heart Rate: 0 Blood Pressure Systolic: 0 Blood Pressure Diastolic: 0 Respiratory Rate: 0 Medications and Responses #5: Medication Time: 22:29 ADULT Medications Given ADULT: Epinephrine 1 mg Route of Administration: IV Heart Rate: 0 Blood Pressure Systolic: 0 Blood Pressure Diastolic: 0 Respiratory Rate: 0 Medications and Responses #6: Medication Time: 22:30 ADULT Medications Given ADULT: Amiodarone 150 mg Route of Administration: IV Heart Rate: 0 Blood Pressure Systolic: 0 Blood Pressure Diastolic: 0 Respiratory Rate: 0 Medications and Responses #7: Medication Time: 22:31 ADULT Medications Given ADULT: Sodium Bacarbinate 50 meq Route of Administration: IV Heart Rate: 0 Blood Pressure Systolic: 0 Blood Pressure Diastolic: 0 Respiratory Rate: 0 Medications and Responses #8: Medication Time: 22:32 ADULT Medications Given ADULT: Magnesium Sulfate 2 gm Route of Administration: IV Heart Rate: 78 EKG Rhythm: Other (Ectopic atrial rhythm) Blood Pressure Systolic: 71 Blood Pressure Diastolic: 45 Nurses Notes [place] Coma Scale Eye Opening: None (1) Johnson Coma Scale Verbal: None (1) Johnson Coma Scale Motor: None (1) Glascow Total: 3 Pupil Reaction: Non Reactive Bedside Blood Glucose: 269 EKG Rhythm: Other (Ectopic atrial rhythm with multiple preamature complexes, RBBB and LAFB; HR 77 @ 2234) Time Code Ended Time Code Ended: 22:31 Post Arrest Status: Ventilated Outcome of code: Successful Code Team Present: Dr Green - ER MD; Gabriel Holcomb RN - ER Charge; Judy Major RN - Golf Club Weighter; Stacy Loya RN; Dahiana Mosley RN; Lilly Khan RN; Mehnaz Oropeza RN; Arpita Turner, RN; Kandy Velazco, RT; Sameer Loya, ERT; Kylie Brandon, ERT; Louisa Becker, ERT; Jonnathan Mosley, Phelbotomist Post Resuscitation Neurologica Pupil Size: 3 ROSC Time of ROSC: 22:31 Pt Meets Criteria for Therapeu: Judy Noble Feb 02, 2025 23:04
[2025-02-02] MEDS: fentaNYL Drip 2500mCg/250mlNS 250 ML IV SCH (23:15)
[2025-02-02 23:34] LABS: Lactic Acid w/Reflex 13.2 mmol/L (0.4-2.0)
[2025-02-02 23:44] LABS: Base Excess -12.7 mmol/L (-2.0-3.0)
--- NOTE | 2025-02-02 23:48 | DVH ---
EXAM: XY CHEST PORTABLE CLINICAL HISTORY: POST INTUBATION TECHNIQUE: Single AP view of the chest WID: COMPARISON: None FINDINGS: Lines and tubes: Endotracheal tube in place projecting 3.9 cm above the anuj. There is a gastric tu be in place with the tip projecting over the gastroesophageal junction. Defibrillator pad projects ov er the right upper chest. Chest: The heart size and pulmonary vasculature is within normal limits. No pleural effusion or pneumothorax. Mixed perihilar opacities. The osseous structures are grossly intact. Multilevel thoracic spondylosis. IMPRESSION: Mixed perihilar opacities which could reflect atelectasis or pneumonia. Endotracheal and gastric tubes in place. Advancement of the gastric tube at least 9.6 cm recommended for optimal positioning.
[2025-02-03] VITALS (144 sets, daily range): BP systolic 29–165; BP diastolic 12–130; PULSE 60–90; RESP 18–31; TEMP 92.4–102.6; O2SAT 66–100
[2025-02-03 00:11] LABS: Chloride 101 mmol/L (98-107); Potassium 2.1 mmol/L (3.5-5.1); Sodium 141 mmol/L (136-145)
[2025-02-03 00:12] LABS: Anion Gap 22 (5-15); Calcium 8.8 mg/dL (8.7-10.4); Carbon Dioxide 18 mmol/L (20-31)
[2025-02-03 00:17] LABS: BUN/Creatinine Ratio 15.9 (10.0-20.0)
[2025-02-03] MEDS: SODIUM CHLORIDE 0.9% 1,000 ML IV ONE ×2 (00:20→00:30)
[2025-02-03] MEDS: POTASSIUM CHL 20MEQ/100ML 100 ML IV ONE (00:20)
[2025-02-03 00:24] LABS: Blood Urea Nitrogen 25 mg/dL (9-23); Glucose 362 mg/dL (74-106)
[2025-02-03] MEDS: PROPOFOL 100 ML IV SCH (02:00)
[2025-02-03] MEDS: PROPOFOL 100 ML IV ONE (02:05)
--- NOTE | 2025-02-03 02:38 | DVH ---
Indication: AMS Comparison: None Technique: Utilizing a multislice CT scanner, a CT scan of the brain was performed without intravenou s contrast. Coronal and sagittal reformatted images. All CT scans at this facility use dose modulation, iterative reconstruction, and/or weight based dosi ng when appropriate to reduce radiation dose to as low as reasonably achievable. Findings: There is no acute infarct, intracranial hemorrhage, or mass effect. There is no hydrocephalus or sign ificant midline shift. No acute, depressed calvarial fractures. No large scalp hematomas. Impression: 1. No acute intracranial process.
[2025-02-03] MEDS ORDERED: VANCOMYCIN PER PHARMACY 0 MG IV SCH (03:00)
[2025-02-03] MEDS ORDERED: ONDANSETRON HCL 4 MG/2 ML VIAL IV PRN (03:00)
--- NOTE | 2025-02-03 03:10 | DVHHP2 ---
History of Present Illness Reason for Visit: Cardiac arrest History of Present Illness The patient is a 54-year-old female with unknown past medical history presented to [facility] ED for evaluation of cardiac arrest..As reported by EMS, patient was found by her partner unresponsive with unknown down time. Call receive at 9:53 p.m., and arrived on scene at 10:07 p.m. were bystander CPR was being done. Patient is still unresponsive, pulseless, asystole. CPR initiated, intubated, placed on autopulse, IV fluids given and epinephrine x3 given. Patient remained asystole until their arrival at the ER at 10:18 p.m. CPR continued of the ER, able to obtain ROSC at 10:25 p.m. Blood sugar on scene was 129. Patient was seen and evaluated in the ED, laboratory data shows WBC 9.2, platelets 204, sodium 141, potassium 2.1, BUN 25, creatinine 1.57, glucose 362, calcium 8.8, BNP 164.78, TSH 2.25, troponin 3496, lactic acid 8.2, blood pressure 104/78, heart rate 74, temperature 95.0 F, O2 saturation 99% on ventilator. Head CT showed no acute intracranial process. Chest x-ray revealing mixed perihilar opacities which could reflect atelectasis or pneumonia, endotracheal and gastric tube in place. Patient was started on IV antibiotic regimen vancomycin, please see medication orders section in the computer. On my assessment, daughter at bedside, patient remains fully intubated, no diaphoresis, no diarrhea, no vomiting, no fever, no chills. Patient was admitted for further evaluation and medical management. Past Medical History Unobtainable Past Surgical History Unobtainable Family History Unobtainable Past Social History Unobtainable Review of Systems Constitutional: Yes: Weakness; No: Fever, Chills, Sweats, Malaise, Other Eyes: No: Pain, Vision change, Conjunctivae inflammation, Eyelid inflammation, Other, Redness ENT: No: Ear pain, Ear discharge, Nose pain, Nose discharge, Nose congestion, Mouth pain, Mouth swelling, Throat pain, Throat swelling, Other Respiratory: No: Cough, Dry, Shortness of breath, SOB with excertion, Wheezing, Hemoptysis, Pleuritic Pain, Sputum, Wheezing, Other Cardiovascular: Other (Cardiac arrest); No: Chest Pain, Palpitations, Orthopnea, Paroxysmal Noc. Dyspnea, Edema, Lt Headedness Gastrointestinal: No: Nausea, Vomiting, Abdominal Pain, Diarrhea, Constipation, Melena, Hematochezia, Other Genitourinary: No Dysuria, No Frequency, No Incontinence, No Hematuria, No Retention; Other (Cancino catheter in place) Musculoskeletal: No: other, neck pain, shoulder pain, arm pain, back pain, hand pain, leg pain, foot pain Skin: No: Rash, Lesions, Jaundice, Bruising, Other Neurological: Other (Altered level of consciousness); No: Weakness, Numbness, Incoordination, Change in speech, Confusion, Seizures Allergies: Coded Allergies: NO KNOWN ALLERGIES (Unverified , 01/01/25) Medications Current Medications Medications Dose Ordered Sig/Abelardo Route Start Time Stop Time Status Last Admin Dose Admin Epinephrine HCl 250 ml @ 7.5 mls/hr Q24H IV 02/02/25 22:45 02/02/25 22:40 37.5 MLS/HR Norepinephrine Bitartrate 250 ml @ 3.75 mls/hr Q24H IV 02/02/25 22:45 02/02/25 22:40 13.125 MLS/HR Midazolam HCl 50 ml @ 1 mls/hr Q24H IV 02/02/25 22:45 02/02/25 22:40 5 MLS/HR Fentanyl Citrate 250 ml @ 2.5 mls/hr Q24H IV 02/02/25 23:15 02/02/25 23:15 5 MLS/HR Propofol 100 ml @ 1.565 mls/ hr Q24H IV 02/03/25 02:00 02/03/25 02:00 1.565 MLS/HR Exam Vital Signs Vital Signs Date Time Temp Pulse Resp B/P (MAP) Pulse Ox O2 Delivery O2 Flow Rate FiO2 02/03/25 02:38 74 02/03/25 02:30 100.0 15 136/79 (98) 100 100.0 02/03/25 01:30 50 02/03/25 00:13 Mechanical Ventilator+ General Appearance: Other (Oriented times 0) HEENT: Atraumatic, PERRLA, EOMI, Mucous membr. moist/pink Respiratory: Normal air movement, Other (Fully intubated) Cardiovascular: Regular rate, Normal S1, Normal S2, No murmurs Abdominal: Normal bowel sounds, Soft, No tenderness, No hepatospenomegaly, No masses Extremities: No clubbing, No cyanosis, No edema, No tenderness/swelling Skin: No rashes, No significant lesion Neuro: Other (Weakness) Psych/Mental Status: Other (Unobtainable) Labs/Xrays Labs Test 02/03/25 01:40 02/03/25 00:36 02/02/25 23:49 02/02/25 23:40 Range/Units Troponin I High Sensitivity 20010 *H </=34 ng/L Lactic Acid Level 8.2 *H 0.4-2.0 mmol/L Sodium Level 141 136-145 mmol/L Potassium Level 2.1 *L 3.5-5.1 mmol/L Chloride Level 101 98-107 mmol/L Carbon Dioxide Level 18 L 20-31 mmol/L Anion Gap 22 H 5-15 Blood Urea Nitrogen 25 H 9-23 mg/dL Creatinine 1.57 H 0.550-1.02 mg/dL Glomerular Filtration Rate Calc 39 >90 mL/min BUN/Creatinine Ratio 15.9 10.0-20.0 Serum Glucose 362 H 74-106 mg/dL Calcium Level 8.8 8.7-10.4 mg/dL Blood Gas Specimen Type Arterial Blood Gas Sample Site Right radial Blood Gas Patient Temperature 37.0 Arterial Blood Date Drawn [id number] Arterial Blood pH 7.268 L 7.350-7.450 Arterial Blood Partial Pressure CO2 28.7 L 32.0-45.0 mmHg Arterial Blood Partial Pressure O2 356.5 *H 83.0-108.0 mmHg Arterial Blood HCO3 12.8 L 21.0-28.0 mmol/L Arterial Blood Oxygen Saturation 99.8 H 94.0-98.0 % Arterial Blood Base Excess -12.7 L -2.0-3.0 mmol/L Arterial Blood Oxyhemoglobin 98.6 H 94.0-98.0 % Arterial Blood Carboxyhemoglobin 0.6 0.5-1.5 % Arterial Blood Methemoglobin 0.6 0.0-1.5 % Simone Test Yes Blood Gas Total Hemoglobin 12.60 12.0-16.0 g/dL Blood Gas Set Respiration Rate 18.0 Blood Gas Modality Vent - ac FiO2 % 100.0 Blood Gas Tidal Volume 450.0 Blood Gas PEEP or CPAP 5.0 Blood Gas Critical Value Read Back yes Blood Gas Notified Whom Dr. lamb Blood Gas Notified Time [id number] Blood Gas Notified By ned fernandez, rt Test 02/02/25 22:30 Range/Units White Blood Count 9.2 4.4-10.8 10^3/uL Red Blood Count 4.50 4.0-5.20 10^6/uL Hemoglobin 13.0 12.2-16.2 g/dL Hematocrit 40.3 36.0-46.0 % Mean Corpuscular Volume 89.4 80.0-100.0 fL Mean Corpuscular Hemoglobin 28.8 28.0-32.0 pg Mean Corpuscular Hemoglobin Concent 32.2 32.0-36.0 g/dL Red Cell Distribution Width 15.3 H 11.8-14.3 % Platelet Count 204 140-450 10^3/uL Mean Platelet Volume 9.0 6.9-10.8 fL Neutrophils (%) (Auto) 44.2 37.0-80.0 % Lymphocytes (%) (Auto) 48.2 10.0-50.0 % Monocytes (%) (Auto) 5.4 0.0-12.0 % Eosinophils (%) (Auto) 0.4 0.0-7.0 % Basophils (%) (Auto) 1.8 0.0-2.0 % Neutrophils # (Auto) 4.1 1.6-8.6 10 ^3/uL Lymphocytes # (Auto) 4.4 0.4-5.4 10 ^3/uL Monocytes # (Auto) 0.5 0-1.3 10 ^3/uL Eosinophils # (Auto) 0 0-0.8 10 ^3/uL Basophils # (Auto) 0.2 0-0.2 10 ^3/uL Nucleated Red Blood Cells 0.5 % Prothrombin Time 11.3 9.3-11.8 sec Prothrombin Time INR 1.07 0.9-1.15 Magnesium Level 3.4 H 1.6-2.6 mg/dL Total Bilirubin 0.4 0.2-1.0 mg/dL Aspartate Amino Transferase (AST) 117 H 13-40 U/L Alanine Aminotransferase (ALT) 60 H 7-40 U/L Alkaline Phosphatase 83 46-116 U/L B-Type Natriuretic Peptide 164.78 0-100 pg/mL Total Protein 5.9 5.7-8.2 g/dL Albumin 3.4 3.2-4.8 g/dL Lipase 30 12-53 U/L Thyroid Stimulating Hormone (TSH) 2.25 0.55-4.78 uIU/mL Plasma/Serum Blood Alcohol 3.1 <10 mg/dL PATIENT: KAYLA RODRIGUES ANNACCT: [id number] UNIT: [id number] : 1970 LOC: ER ROOM / BED: / AGE / SEX: 54 / F ADM STATUS: REG ER SERVICE 33 ORDERING PHYSICIAN: SAKSHI RAJAN MD PROCEDURE(s): HWOCT - HEAD WITHOUT CONTRAST REASON: AMS ORDER NUMBER(s): [id number], ACCESSION NUMBER(s): [id number] Indication: AMS Comparison: None Technique: Utilizing a multislice CT scanner, a CT scan of the brain was performed without intravenous contrast. Coronal and sagittal reformatted images. All CT scans at this facility use dose modulation, iterative reconstruction, and/or weight based dosing when appropriate to reduce radiation dose to as low as reasonably achievable. Findings: There is no acute infarct, intracranial hemorrhage, or mass effect. There is no hydrocephalus or significant midline shift. No acute, depressed calvarial fractures. No large scalp hematomas. Impression: 1. No acute intracranial process. ORDERING PHYSICIAN: SAKSHI RAJAN MD PROCEDURE(s): CXRP - CHEST PORTABLE REASON: POST INTUBATION ORDER NUMBER(s): [id number], ACCESSION NUMBER(s): [id number] EXAM: XY CHEST PORTABLE CLINICAL HISTORY: POST INTUBATION TECHNIQUE: Single AP view of the chest WID: COMPARISON: None FINDINGS: Lines and tubes: Endotracheal tube in place projecting 3.9 cm above the anuj. There is a gastric tube in place with the tip projecting over the gastroesophageal junction. Defibrillator pad projects over the right upper chest. Chest: The heart size and pulmonary vasculature is within normal limits. No pleural effusion or pneumothorax. Mixed perihilar opacities. The osseous structures are grossly intact. Multilevel thoracic spondylosis. IMPRESSION: Mixed perihilar opacities which could reflect atelectasis or pneumonia. Endotracheal and gastric tubes in place. Advancement of the gastric tube at least 9.6 cm recommended for optimal positioning. SEPSIS Sepsis Screen Date sepsis recognized/suspect: Feb 03, 2025 Time Sepsis recognized/suspect: 0018 Recent Procedure: No On Antibiotic Therapy: No Respiratory Rate >20: No Heart Rate >90: No Temp<36 C (96.8 F) or >38.3 C: No SBP <90 or MAP <65 mmHG: No New Acute Mental Status Change: No Is the patient on CPAP, BIPAP,: No Physician Orders Drug Screen (02/02/25 22:34) Covid19 Antigen Alva (02/02/25 ) Rapid Influenza A&B (02/02/25 22:34) Urinalysis (02/02/25 22:34) Head Without Contrast (02/02/25 22:34) Electrocardigram (02/02/25 22:34) Blood Culture (02/02/25 22:34) Saline Lock (02/02/25 22:34) Residential Assistant (02/02/25 ) Straight Cath. (02/02/25 ) Electrocardigram (02/02/25 19:21) Electrocardigram (02/02/25 21:21) Electrocardigram (02/02/25 23:34) Electrocardigram (02/03/25 01:34) Epinephrine Hcl (02/02/25 22:45) Rass Sedation Scale Q1HR (02/02/25 22:39) Amiodarone 360mg/200ml Premix (Nexterone (02/02/25 23:00) Amiodarone 360mg/200ml Premix (Nexterone (02/03/25 05:00) Amiodarone 360mg/200ml Premix (Nexterone (02/02/25 23:00) Norepinephrine 8 Mg/250ml Kit (Levophed) (02/02/25 22:45) Midazolam Drip 50 Mg/50ml (Versed Drip 5 (02/02/25 22:45) Communication Order (02/02/25 22:49) Communication Order (02/02/25 22:55) Ventilator Orders (02/02/25 23:01) Respiratory Culture W/ Gs (02/02/25 23:01) Fentanyl Drip 2500mcg/250mlns (02/02/25 23:15) Chest Portable (02/02/25 23:14) Abg W/ Co-Ox (02/02/25 23:20) Insert/Manage Urinary Catheter QSHIFT (02/03/25 00:09) Ngt/Ogt (02/03/25 ) Communication Order (02/03/25 00:00) Sodium Chloride 0.9% (02/03/25 00:30) Communication Order (02/03/25 00:42) Propofol (Diprivan) (02/03/25 02:00) Rass Sedation Scale Q1HR (02/03/25 02:00) Electrocardigram (02/03/25 02:29) Rectal/Core Temps Only (02/03/25 02:34) Complete Blood Count (02/03/25 04:00) Comprehensive Metabolic Panel (02/03/25 04:00) Famotidine Injection (Pepcid Injection) (02/03/25 10:00) * Cardiology Consult (02/03/25 02:50) *[facility] (02/03/25 02:50) Lactated Ringers Lr (02/03/25 03:00) Hemoglobin A1c (02/03/25 02:50) Free T3 (02/03/25 02:50) Free T4 (Free Thyroxine) (02/03/25 02:50) Lactic Acid W/ Reflex Order (02/03/25 04:00) Ceftriaxone Ivpb Rocephin (02/03/25 09:00) Ceftriaxone Ivpb Rocephin (02/03/25 03:00) Vancomycin Per Pharmacy (02/03/25 03:00) Glucose Blood (Accu-Chek Comfort Curve T (02/03/25 06:00) Mild Sliding Scale Npo - Q6hr (02/03/25 06:00) Dextrose 50% Syringe (02/03/25 03:00) Admit (02/03/25 02:50) Allergies (02/03/25 02:50) Code Status (02/03/25 02:50) Oxygen Per Hour (02/03/25 02:50) Ondansetron Hcl (Zofran) (02/03/25 03:00) Fall Risk Precautions In Place QSHIFT (02/03/25 02:50) Complete Blood Count (02/04/25 04:00) Comprehensive Metabolic Panel (02/04/25 04:00) Npo (Nothing By Mouth) Diet (02/03/25 Breakfast) Echo 2d Mode Cardiac Dop (02/03/25 02:50) Condition: Critical (02/03/25 02:50) Maintain Bed Rest (02/03/25 02:50) Sequential Compression Device (02/03/25 ) Potassium Chl Jack Kcl (02/03/25 03:00) NS (02/03/25 03:00) Vital Signs Date Time Temp Pulse Resp B/P (MAP) Pulse Ox O2 Delivery O2 Flow Rate FiO2 02/03/25 02:38 74 02/03/25 02:30 100.0 73 15 136/79 (98) 100 100.0 02/03/25 02:15 99.8 75 25 143/84 (103) 100 99.8 02/03/25 02:00 100.0 86 44 142/72 (95) 100 100.0 02/03/25 02:00 138/70 02/03/25 02:00 138/70 02/03/25 02:00 138/70 02/03/25 02:00 138/70 02/03/25 02:00 138/70 02/03/25 01:45 144/78 02/03/25 01:45 99.3 89 46 144/78 (100) 100 99.3 02/03/25 01:40 159/76 02/03/25 01:30 98.8 86 43 160/78 (105) 100 98.8 02/03/25 01:30 84 31 131/89 (103) 99 50 02/03/25 01:30 160/78 02/03/25 01:25 154/84 02/03/25 01:20 159/76 02/03/25 01:15 98.2 86 43 149/74 (99) 98 98.2 02/03/25 01:10 91/42 02/03/25 01:00 149/74 02/03/25 01:00 149/74 02/03/25 01:00 149/74 02/03/25 01:00 149/74 02/03/25 01:00 97.3 86 44 100/64 (76) 100 97.3 02/03/25 00:45 96.4 86 31 115/65 (82) 100 96.4 02/03/25 00:40 114/67 02/03/25 00:40 114/67 02/03/25 00:35 121/77 02/03/25 00:30 98.8 86 34 160/78 (105) 100 98.8 02/03/25 00:30 104/66 02/03/25 00:25 104/70 02/03/25 00:20 107/71 02/03/25 00:15 98.2 86 34 130/67 (88) 98 98.2 02/03/25 00:15 106/65 02/03/25 00:15 107/65 02/03/25 00:13 68 20 100 Mechanical Ventilator+ 60 60 02/03/25 00:11 92.4 78 18 71/45 98 100 92.4 02/03/25 00:10 102/66 02/03/25 00:05 92/59 02/03/25 00:00 95.0 76 29 130/67 (88) 100 95.0 02/03/25 00:00 130/67 02/03/25 00:00 130/67 02/03/25 00:00 130/67 02/03/25 00:00 130/67 02/03/25 00:00 77 02/02/25 23:50 111/63 02/02/25 23:45 95.0 75 27 102/73 (83) 100 95.0 02/02/25 23:30 76 23 91/58 (69) 100 02/02/25 23:26 86 02/02/25 23:15 75 21 130/69 (89) 100 02/02/25 23:15 130/69 02/02/25 23:04 78 Ambu-Bag 78 02/02/25 23:02 58 20 53/29 (37) 92 100 02/02/25 23:00 68 13 100/64 (76) 100 02/02/25 23:00 100/64 02/02/25 23:00 100/64 02/02/25 23:00 100/64 02/02/25 22:44 53 17 53/29 (37) 88 02/02/25 22:40 63/37 02/02/25 22:40 63/37 02/02/25 22:40 63/37 02/02/25 22:34 77 02/02/25 22:33 115 24 159/121 (134) 89 02/02/25 22:18 92.4 0 0 0/0 0 92.4 Laboratory Tests Test 02/02/25 22:30 02/02/25 22:53 02/03/25 00:36 White Blood Count 9.2 10^3/uL (4.4-10.8) Lactic Acid Level 13.2 mmol/L (0.4-2.0) *H 8.2 mmol/L (0.4-2.0) *H Medications Medications Dose Ordered Sig/Abelardo Route Start Time Stop Time Status Last Admin Dose Admin Cefazolin Sodium/ Dextrose 50 ml @ 50 mls/hr ONCE ONCE IV 02/02/25 23:00 02/02/25 23:59 DC 02/02/25 23:00 50 MLS/HR Epinephrine HCl 250 ml @ 7.5 mls/hr Q24H IV 02/02/25 22:45 02/02/25 22:40 37.5 MLS/HR Fentanyl Citrate 250 ml @ 2.5 mls/hr Q24H IV 02/02/25 23:15 02/02/25 23:15 5 MLS/HR Midazolam HCl 50 ml @ 1 mls/hr Q24H IV 02/02/25 22:45 02/02/25 22:40 5 MLS/HR Norepinephrine Bitartrate 250 ml @ 3.75 mls/hr Q24H IV 02/02/25 22:45 02/02/25 22:40 13.125 MLS/HR Potassium Chloride 100 ml @ 50 mls/hr ONCE ONCE IV 02/02/25 23:30 02/03/25 01:29 DC 02/03/25 00:20 50 MLS/HR Propofol 100 ml @ 1.565 mls/ hr Q24H IV 02/03/25 02:00 02/03/25 02:00 1.565 MLS/HR Sodium Chloride 1,000 ml @ 130 mls/hr Q7H42M ONCE IV 02/03/25 00:30 02/03/25 08:11 02/03/25 00:20 130 MLS/HR Sodium Chloride 1,000 ml @ 1,000 mls/hr Q1H ONCE IV 02/03/25 00:30 02/03/25 01:29 DC 02/03/25 00:30 1,000 MLS/HR Assessment/Plan Assessment/Plan Cardiac arrest Hypokalemia Hyperglycemia Elevated lactic acid level Pneumonia, unspecified organism Acute renal injury Metabolic acidosis Generalized weakness Non ST elevated myocardial infarction Plan 1. Admit to intensive care unit 2. Breathing treatment 3. Pain control management 4. IV antibiotic management 5. Management of fluids and electrolytes 6. Consultation for Cardiology/Nephrology 7. Diagnostic test head CT 8. DVT prophylaxis-on heparin 9. Repeat labs CBC, CMP in a.m. 10. Continue with current medical management 11. Treatment plan discussed with patient and RN. Patient is fully intubated. Plan discussed with: Patient, Other (RN) My Orders Orders - CATHY YOST DNP Procedure Category Date Status Time Complete Blood Count LAB 02/03/25 Transmitted 04:00 Comprehensive LAB 02/03/25 Transmitted Metabolic Panel 04:00 Famotidine Injection PHA 02/03/25 Transmitted (Pepcid Injection) 10:00 * Cardiology Consult CONS 02/03/25 Transmitted 02:50 [facility] CONS 02/03/25 Transmitted -[place] 02:50 Lactated Ringers Lr PHA 02/03/25 Transmitted 03:00 Hemoglobin A1c LAB 02/03/25 Transmitted 02:50 Free T3 LAB 02/03/25 Transmitted 02:50 Free T4 (Free LAB 02/03/25 Transmitted Thyroxine) 02:50 Lactic Acid W/ Reflex LAB 02/03/25 Transmitted Order 04:00 Ceftriaxone Ivpb PHA 02/03/25 Transmitted Rocephin 09:00 Ceftriaxone Ivpb PHA 02/03/25 Transmitted Rocephin 03:00 Vancomycin Per PHA 02/03/25 Transmitted Pharmacy 03:00 Glucose Blood PHA 02/03/25 Transmitted (Accu-Chek Comfort 06:00 Mild Sliding Scale PHA 02/03/25 Verified Npo - Q6hr 06:00 Dextrose 50% Syringe PHA 02/03/25 Verified 03:00 Admit ADMIT 02/03/25 Transmitted 02:50 Allergies HOLLAND 02/03/25 Verified 02:50 Code Status CODE 02/03/25 Verified 02:50 Oxygen Per Hour RT 02/03/25 Verified 02:50 Ondansetron Hcl PHA 02/03/25 Verified (Zofran) 03:00 Fall Risk Precautions HOLLAND 02/03/[address] 02:50 Complete Blood Count LAB 02/04/25 Verified 04:00 Comprehensive LAB 02/04/25 Verified Metabolic Panel 04:00 Npo (Nothing By DIET 02/03/25 Verified Mouth) Diet Breakfast Echo 2d Mode Cardiac US 02/03/25 Transmitted DOP 02:50 Condition: Critical HOLLAND 02/03/25 Verified 02:50 Maintain Bed Rest HOLLAND 02/03/25 Verified 02:50 Sequential [place]LLAND 02/03/25 Verified Compression Device Potassium Chl Jack PHA 02/03/25 Verified KCL 03:00 NS PHA 02/03/25 Verified 03:00 Problem List: (1) Cardiac arrest (2) Elevated lactic acid level (3) Hyperglycemia (4) Acute renal injury (5) Pneumonia, unspecified organism (6) Metabolic acidosis (7) Hypokalemia (8) Generalized weakness (9) NSTEMI (non-ST elevated myocardial infarction) Date of Service: Feb 03, 2025 Billing Provider: CATHY YOST DNP Common Visit Codes: [id number] INP/OBS CARE (HIGH) CATHY YOST DNP Feb 03, 2025 03:10
--- NOTE | 2025-02-03 03:11 | ECG ---
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
[2025-02-03] MEDS: ACETAMINOPHEN IV 1000 MG/100ML (10MG/ML) IV ONE (03:30)
[2025-02-03] MEDS: POTASSIUM CHL 20MEQ/100ML 100 ML IV SCH ×2 (03:52→09:45)
[2025-02-03 04:01] LABS: Hematocrit 41.1 % (36.0-46.0); Hemoglobin 13.6 g/dL (12.2-16.2); Mean Corpuscular Hemoglobin 29.0 pg (28.0-32.0); Mean Corpuscular Volume 87.2 fL (80.0-100.0); Nucleated Red Blood Cells % 0.1 %
[2025-02-03] MEDS: AMIODARONE 360mg/200mL PREMIX 200 ML IV SCH (04:03)
[2025-02-03] MEDS: SODIUM CHLORIDE 0.9% 500 ML IV ONE ×2 (04:09→06:03)
[2025-02-03 04:11] LABS: INR 1.12 (0.9-1.15); Partial Thromboplastin Time 38.5 SEC (24.5-34.5); Prothrombin Time 11.7 sec (9.3-11.8)
[2025-02-03 04:13] LABS: Alanine Aminotransferase 115 U/L (7-40); Albumin 2.8 g/dL (3.2-4.8); Alkaline Phosphatase 125 U/L (46-116); Anion Gap 15 (5-15); BUN/Creatinine Ratio 18.2 (10.0-20.0); Bilirubin, Total 0.6 mg/dL (0.2-1.0); Blood Urea Nitrogen 27 mg/dL (9-23); Calcium 7.0 mg/dL (8.7-10.4); Carbon Dioxide 19 mmol/L (20-31); Chloride 109 mmol/L (98-107); Glucose 255 mg/dL (74-106); Sodium 143 mmol/L (136-145); Total Protein 4.9 g/dL (5.7-8.2)
[2025-02-03 04:14] LABS: Potassium 2.0 mmol/L (3.5-5.1)
[2025-02-03] MEDS: cefTRIAXone 1GM/50ML D5W 50 ML IV ONE (04:15)
[2025-02-03 04:16] LABS: Free T4 (Free Thyroxine) 1.18 ng/dL (0.89-1.76)
[2025-02-03 04:17] LABS: Free T3 2.9 pg/mL (2.3-4.2)
[2025-02-03 04:19] LABS: Lactic Acid w/Reflex 5.6 mmol/L (0.4-2.0)
[2025-02-03] MEDS: LACTATED RINGER'S 1,000 ML IV SCH (05:03)
[2025-02-03] MEDS: ACCU-CHEK COMFORT CURVE STRIP VI SCH (05:26)
[2025-02-03] MEDS: VANCOMYCIN 1GM/250ML KIT 250 ML IV ONE (05:32)
[2025-02-03] MEDS: InsuLIN REG 1unit/0.01ml Soln (100units/ml) SC SCH (05:34)
[2025-02-03] MEDS: HEPARIN DRIP/D5W 100UNITS/ML 250 ML IV SCH ×2 (05:40→15:20)
[2025-02-03 05:55] LABS: Urine Amorphous Crystal FEW /hpf (None Seen); Urine Protein, UAD 2+ (Negative)
[2025-02-03] MEDS: PHENYLEPHRINE IV 250 ML IV SCH (06:00)
[2025-02-03] MEDS: DOPamine 1600MCG/ML D5W 250 ML IV SCH (06:00)
[2025-02-03 06:01] LABS: Base Excess -18.7 mmol/L (-2.0-3.0)
[2025-02-03 06:02] LABS: Opiate Scree,Urine Neg (NEGATIVE)
[2025-02-03 06:05] LABS: Amphetamine Screen, Urine Pos (NEGATIVE); Barbiturate Scree,Urine Neg (NEGATIVE); Benzodiazephine Screen, Urine Pos (NEGATIVE); Cannabinoid Screen, Urine Neg (NEGATIVE); Cocaine Screen, Urine Neg (NEGATIVE); Phencyclidine Screen, Urine Neg (NEGATIVE)
[2025-02-03] MEDS: SODIUM BICARB 50mEq/50ml Vial 50 ML in SOD CHL 0.45% 1,000 ML IV ONE (06:15)
[2025-02-03] MEDS: SODIUM BICARB 8.4% 50Meq/50ml SYR INJ ONE (06:16)
[2025-02-03] MEDS: PHENYLEPHRINE IV 250 ML IV ONE (06:17)
[2025-02-03] MEDS: VASOPRESSIN 20 UNIT/ML ONE (06:17)
[2025-02-03] MEDS: VASOPRESSIN 20 UNITS in SODIUM CHL 0.9% 99 ML IV SCH (06:20)
[2025-02-03] MEDS: SODIUM BICARB 8.4% 50Meq/50ml SYR Vial IV ONE ×2 (06:24)
[2025-02-03 08:24] LABS: Base Excess -13.7 mmol/L (-2.0-3.0)
[2025-02-03] MEDS: NOREPINEPHRINE BITARTRATE 32 MG in SODIUM CHL 0.9% 218 ML IV SCH (09:08)
[2025-02-03] MEDS: PHENYLEPHRINE INJ 80 MG in SODIUM CHL 0.9% 242 ML IV SCH (09:11)
[2025-02-03] MEDS: EPINEPHrine HCL INJECTION 16 MG in D5W 5% 234 ML IV SCH (09:11)
[2025-02-03 09:33] LABS: Anion Gap 23 (5-15); BUN/Creatinine Ratio 15.7 (10.0-20.0); Chloride 107 mmol/L (98-107)
[2025-02-03 09:34] LABS: Bilirubin, Total 1.0 mg/dL (0.2-1.0)
[2025-02-03 09:35] LABS: Carbon Dioxide 18 mmol/L (20-31); Sodium 148 mmol/L (136-145)
[2025-02-03 09:36] LABS: Alanine Aminotransferase 534 U/L (7-40); Albumin 2.8 g/dL (3.2-4.8); Alkaline Phosphatase 123 U/L (46-116); Blood Urea Nitrogen 31 mg/dL (9-23); Calcium 7.1 mg/dL (8.7-10.4); Glucose 168 mg/dL (74-106); Potassium 2.3 mmol/L (3.5-5.1); Total Protein 4.9 g/dL (5.7-8.2)
[2025-02-03] MEDS ORDERED: FAMOTIDINE (10MG/ML) 2ML VL IV SCH (10:00)
--- NOTE | 2025-02-03 10:02 | DVHINCON2 ---
Date Seen: Feb 03, 2025 Referring Physician TAHIR Sousa Reason for Consultation Cardiac arrest History of Present Illness This is a 54-year-old female patient who presents to emergency room status post cardiopulmonary arrest. At the time of assessment, the patient is mechanically ventilated. History obtained from bedside RN and medical records. According to documentation, the patient was found unresponsive with an unknown downtime. Bystander CPR was initiated and EMS was called. EMS continued CPR until emergency room arrival and ROSC was achieved. According to documented times, EMS was called at 9:53 p.m. and ROSC was achieved in the emergency room at 10:25 p.m, but downtime prior to EMS call is unknown. Initial twelve lead electrocardiogram reveals a junctional rhythm with right bundle branch block, intraventricular conduction delay, and prolonged QTc interval. Initial troponin level of 316ng/L with up trend and current peak level at 90447bh/L. No significant past medical history noted. No family at bedside at time of assessment to confirm. Past Medical History Unknown Past Surgical History Unknown Family History Unknown Social History Toxicology screen positive for amphetamines, fentanyl, and benzodiazepines Allergies: Coded Allergies: NO KNOWN ALLERGIES (Unverified , 01/01/25) Home Meds Active Scripts Tramadol HCl (Tramadol HCl) 50 Mg Tab, 50 MG PO BID, #20 TAB Prov:BRITTANY GASPAR PA 01/19/25 Acetaminophen W/ Codeine (Tylenol W/Cod #3) 1 Tab Tb, 1 TAB PO Q6HP PRN, #20 TAB Prov:HEIDI BERNAL PAC 12/26/23 Ibuprofen Micronized (Ibuprofen) 800 Mg Tab, 800 MG PO Q8HP PRN, #30 TAB Prov:HEIDI BERNAL PAC 12/26/23 Current Medications Current Medications Medications (Trade) Dose Ordered Sig/Abelardo Route PRN Reason Start Time Stop Time Status Last Admin Epinephrine HCl 250 ml @ 7.5 mls/hr Q24H IV 02/02/25 22:45 02/03/25 07:54 DC 02/02/25 22:40 Epinephrine HCl 250 ml @ 7.5 mls/hr Q24H IV 02/02/25 22:45 02/02/25 23:08 DC Norepinephrine Bitartrate 250 ml @ 3.75 mls/hr Q24H IV 02/02/25 22:45 02/03/25 07:55 DC 02/03/25 04:03 Midazolam HCl 50 ml @ 1 mls/hr Q24H IV 02/02/25 22:45 02/02/25 22:40 Fentanyl Citrate 250 ml @ 2.5 mls/hr Q24H IV 02/02/25 23:15 02/02/25 23:15 Propofol 100 ml @ 1.565 mls/ hr Q24H IV 02/03/25 02:00 02/03/25 02:00 Famotidine (Pepcid Injection) 20 mg Q12HR IV 02/03/25 10:00 02/03/25 09:10 DC Lactated Ringer's 1,000 ml @ 125 mls/hr Q8H IV 02/03/25 03:00 02/03/25 06:52 DC 02/03/25 05:03 Ceftriaxone Sodium 50 ml @ 100 mls/hr DAILY@09 IV 02/04/25 09:00 Vancomycin HCl 0 ml @ 0 mls/hr UD IV 02/03/25 03:00 Diagnostic Test (Pha) (Accu-Chek Comfort Curve T) 1 strip Q6HR 02/03/25 06:00 02/03/25 05:26 Insulin Human Regular (InsuLIN R) Q6HR SC 02/03/25 06:00 02/03/25 05:34 Dextrose 50 ml UD PRN IV Blood Sugar LESS THAN 60 02/03/25 03:00 Ondansetron HCl (Zofran) 4 mg Q4HP PRN IV NAUSEA / VOMITING 02/03/25 03:00 02/03/25 09:10 DC Potassium Chloride 100 ml @ 50 mls/hr Q2H IV 02/03/25 03:00 02/03/25 08:59 DC 02/03/25 06:18 Heparin Sodium/ Dextrose 250 ml @ 6 mls/hr Q24H IV 02/03/25 03:30 02/03/25 05:40 Dopamine HCl/ Dextrose 250 ml @ 9.781 mls/ hr Q24H IV 02/03/25 06:15 02/03/25 06:00 Phenylephrine HCl 250 ml @ 30 mls/hr Q8H20M IV 02/03/25 06:15 02/03/25 07:55 DC 02/03/25 07:40 Vasopressin 20 units/Sodium Chloride 100 ml @ 9 mls/hr Q11H7M IV 02/03/25 06:15 02/03/25 06:20 Phenylephrine HCl 80 mg/Sodium Chloride 250 ml @ 7.5 mls/hr Q24H IV 02/03/25 08:00 02/03/25 09:11 Norepinephrine Bitartrate 32 mg/ Sodium Chloride 250 ml @ 0.938 mls/ hr Q24H IV 02/03/25 08:00 02/03/25 09:08 Epinephrine HCl 16 mg/Dextrose 250 ml @ 1.875 mls/ hr Q24H IV 02/03/25 08:00 02/03/25 09:11 Potassium Chloride 100 ml @ 50 mls/hr Q2H IV 02/03/25 09:45 02/03/25 17:44 Review of Systems Constitutional: No symptom reported Ears, Nose, & Throat: No symptom reported Eyes: No symptom reported Neurological: No symptoms reported Pulmonary/Respiratory: Cardiopulmonary arrest Cardiovascular: Cardiopulmonary arrest Gastrointestinal: No symptom reported Genitourinary: No symptom reported Musculoskeletal: No symptom reported Skin: No symptom reported Psychiatric: No symptom reported Endocrine: No symptom reported Hematologic/Lymphatic: No symptom reported Vital Signs Vital Signs Date Time Temp Pulse Resp B/P (MAP) Pulse Ox O2 Delivery O2 Flow Rate FiO2 02/03/25 09:43 77 28 106/64 (78) 30 02/03/25 07:15 99.0 210.2 02/03/25 06:00 100 02/03/25 06:00 Mechanical Ventilator+ Physical Exam General Appearance: Calm, relaxed. Pulmonary/Respiratory: Clear, bilateral breaths sounds. Mechanically ventilated Cardiovascular/Chest: Regular rate and rhythm. Peripheral Pulses: 2+ Radial (R). 2+ Radial (L). Abdominal Exam: Normal bowel sounds. Ankle Exam: Negative ankle edema Lower extremities: Negative lower extremity edema Neuro/Mental Status: Off sedations, pupils dilated, fixed, and nonreactive bilaterally. No cough or gag reflex Thoughts/Psych: Deferred Appearance: No acute distress. Skin Exam: Bilateral feet are mottled Labs/Diagnostic Data Labs Test 02/03/25 08:45 02/03/25 08:06 02/03/25 05:33 02/03/25 05:25 Range/Units Sodium Level 148 #H 136-145 mmol/L Potassium Level 2.3 *L 3.5-5.1 mmol/L Chloride Level 107 98-107 mmol/L Carbon Dioxide Level 18 L 20-31 mmol/L Anion Gap 23 H 5-15 Blood Urea Nitrogen 31 H 9-23 mg/dL Creatinine 1.98 #H 0.550-1.02 mg/dL Glomerular Filtration Rate Calc 30 >90 mL/min BUN/Creatinine Ratio 15.7 10.0-20.0 Serum Glucose 168 H 74-106 mg/dL Lactic Acid Level 11.0 *H 0.4-2.0 mmol/L Calcium Level 7.1 L 8.7-10.4 mg/dL Total Bilirubin 1.0 0.2-1.0 mg/dL Aspartate Amino Transferase (AST) 1425 H 13-40 U/L Alanine Aminotransferase (ALT) 534 H 7-40 U/L Alkaline Phosphatase 123 H 46-116 U/L Total Protein 4.9 L 5.7-8.2 g/dL Albumin 2.8 L 3.2-4.8 g/dL Blood Gas Specimen Type Arterial Blood Gas Sample Site Right radial Blood Gas Patient Temperature 37.0 Arterial Blood Date Drawn [id number] Arterial Blood pH 7.176 *L 7.350-7.450 Arterial Blood Partial Pressure CO2 38.6 32.0-45.0 mmHg Arterial Blood Partial Pressure O2 111.1 H 83.0-108.0 mmHg Arterial Blood HCO3 14.0 L 21.0-28.0 mmol/L Arterial Blood Oxygen Saturation 96.8 94.0-98.0 % Arterial Blood Base Excess -13.7 L -2.0-3.0 mmol/L Arterial Blood Oxyhemoglobin 96.1 94.0-98.0 % Arterial Blood Carboxyhemoglobin 0.3 L 0.5-1.5 % Arterial Blood Methemoglobin 0.4 0.0-1.5 % Simone Test Modified Blood Gas Total Hemoglobin 13.60 12.0-16.0 g/dL Blood Gas Set Respiration Rate 22.0 Blood Gas Modality Vent - ac FiO2 % 40.0 Blood Gas Tidal Volume 450.0 Blood Gas PEEP or CPAP 5.0 Blood Gas Critical Value Read Back Yes Blood Gas Notified Whom janice Maya md Blood Gas Notified Time [id number] Blood Gas Notified By marguerite Figueredo rrt Urine Color Light-orange Yellow Urine Clarity Turbid H Clear Urine pH 6.0 5.0-9.0 Urine Specific [place] 1.012 1.001-1.035 Urine Protein 2+ H Negative Urine Ketones Negative Negative Urine Blood 3+ H Negative /uL Urine Nitrite Negative Negative Urine Bilirubin Negative Negative Urine Urobilinogen 2 H Negative mg/dL Urine Leukocyte Esterase Negative Negative /uL Urine RBC 18 0 - 4 /hpf Urine Microscopic WBC 24 H 0-5 /HPF Urine Squamous Epithelial Cells Few <5 /hpf Urine Amorphous Crystals Few None Seen /hpf Urine Bacteria None seen None Seen /hpf Urine Hyaline Casts Few 0 - 2 /lpf Urine Glucose 3+ H Normal mg/dL Urine Opiates Screen Neg NEGATIVE Urine Fentanyl Screen Pos NEGATIVE Urine Barbiturates Screen Neg NEGATIVE Urine Phencyclidine Screen Neg NEGATIVE Urine Amphetamines Screen Pos NEGATIVE Urine Benzodiazepines Screen Pos NEGATIVE Urine Cocaine Screen Neg NEGATIVE Urine Cannabinoids Screen Neg NEGATIVE POC Glucose 236 H 70-106 mg/dl Test 02/03/25 03:30 02/03/25 01:40 02/02/25 22:30 Range/Units White Blood Count 19.7 #H 4.4-10.8 10^3/uL Red Blood Count 4.71 4.0-5.20 10^6/uL Hemoglobin 13.6 12.2-16.2 g/dL Hematocrit 41.1 36.0-46.0 % Mean Corpuscular Volume 87.2 80.0-100.0 fL Mean Corpuscular Hemoglobin 29.0 28.0-32.0 pg Mean Corpuscular Hemoglobin Concent 33.2 32.0-36.0 g/dL Red Cell Distribution Width 15.4 H 11.8-14.3 % Platelet Count 311 140-450 10^3/uL Mean Platelet Volume 8.7 6.9-10.8 fL Neutrophils (%) (Auto) 87.7 H 37.0-80.0 % Lymphocytes (%) (Auto) 6.1 L 10.0-50.0 % Monocytes (%) (Auto) 6.0 0.0-12.0 % Eosinophils (%) (Auto) 0.1 0.0-7.0 % Basophils (%) (Auto) 0.1 0.0-2.0 % Neutrophils # (Auto) 17.3 H 1.6-8.6 10 ^3/uL Lymphocytes # (Auto) 1.2 0.4-5.4 10 ^3/uL Monocytes # (Auto) 1.2 0-1.3 10 ^3/uL Eosinophils # (Auto) 0 0-0.8 10 ^3/uL Basophils # (Auto) 0 0-0.2 10 ^3/uL Nucleated Red Blood Cells 0.1 % Prothrombin Time 11.7 9.3-11.8 sec Prothrombin Time INR 1.12 0.9-1.15 Activated Partial Thromboplast Time 38.5 H 24.5-34.5 SEC Hemoglobin A1c 5.1 <5.7 % A1C Free Thyroxine (T4) Calculated 1.18 0.89-1.76 ng/dL Free Triiodothyronine (T3) pg/mL 2.90 2.3-4.2 pg/mL Troponin I High Sensitivity 48515 *H </=34 ng/L Magnesium Level 3.4 H 1.6-2.6 mg/dL B-Type Natriuretic Peptide 164.78 0-100 pg/mL Lipase 30 12-53 U/L Thyroid Stimulating Hormone (TSH) 2.25 0.55-4.78 uIU/mL Plasma/Serum Blood Alcohol 3.1 <10 mg/dL Assessment Cardiopulmonary arrest s/p CPR with return of spontaneous circulation NSTEMI Rule out structural heart disease Prolonged QTc interval Septic shock Hypokalemia Acute kidney injury Transaminitis Polysubstance abuse Plan/Recommendation We will continue with the following plan/recommendations (Dr. Newton): Case discussed with . We will proceed with obtaining a transthoracic echocardiogram to evaluate cardiac function. The patient who presented with cardiopulmonary arrest underwent CPR with return of spontaneous circulation. Total downtime is unknown given that the patient was found unresponsive. Downtime from the time EMS was called to emergency room arrival is at least 32 minutes per documented times. Troponin levels notably elevated. NSTEMI type 1 versus 2. At the time of assessment, the patient is maxed on five vasopressors for hemodynamic support. Bilateral pupils are fixed, dilated, and nonreactive. The patient is also off of all sedatives and does not present with a cough or gag reflex. At this time, the patient is not a candidate for any invasive cardiac procedures. Patient has a very poor prognosis. Consider goals of care with family. Thank you for allowing us to care for this patient. Please call with any questions or concerns. Critical care time spent: 44 minutes This medical document was created using an electronic medical record system with voice recognition software and computerized dictation system. Although this document has been carefully reviewed, there might still be some phonetic and typographical errors. Occasional wrong-word or ``sound-alike substitutions may have occurred due to the inherent limitations of voice recognition software. These areas are purely typographical due to imperfections of the software programs and do not reflect any compromise in the patient's medical care. Please read the chart carefully and recognize, using context, where these substitutions have occurred. Plan discussed with: Other (Bedside RN) NYHA Physical activity limitations: NA Date of Service: Feb 03, 2025 Billing Provider: DURAN GARCIA Cardiology Common Codes: 42060-QLMMNGS INP/OBS CARE (High) Cardiology Consultation Codes: 59706-[id number] CONSULT <45MIN DURAN GARCIA Feb 03, 2025 10:02
[2025-02-03 10:11] LABS: Base Excess -9.9 mmol/L (-2.0-3.0)
[2025-02-03] MEDS ORDERED: ATROPINE SULF 1 MG/10ml SYR IM ONE (10:34)
[2025-02-03 13:59] LABS: INR 1.5 (0.9-1.15); Prothrombin Time 15.3 sec (9.3-11.8)
[2025-02-03 14:00] LABS: Lactic Acid w/Reflex 9.6 mmol/L (0.4-2.0); Partial Thromboplastin Time 98.8 SEC (24.5-34.5)
--- NOTE | 2025-02-03 14:23 | CONS ---
Pharmacy Clinical Information: HOLD HEPARIN DRIP FOR 1 HOUR PER APTT OF 98.8, THEN RE-START AT RATE 300 UNI TS/HR NEXT APTT DRAW SCHEDULED FOR 0 PER RX PROTOCOL BONITA JENNINGS PHARMACIST Feb 03, 2025 14:23
[2025-02-03] MEDS: BUMETANIDE 2.5mg/10ml (0.25 mg/ml) INJ IV ONE (14:38)
[2025-02-03 17:00] LABS: Chloride 106 mmol/L (98-107); Potassium 5.1 mmol/L (3.5-5.1); Sodium 143 mmol/L (136-145)
[2025-02-03 17:01] LABS: Anion Gap 12 (5-15); Carbon Dioxide 25 mmol/L (20-31)
[2025-02-03 17:06] LABS: BUN/Creatinine Ratio 14.4 (10.0-20.0)
[2025-02-03 17:11] LABS: Blood Urea Nitrogen 31 mg/dL (9-23); Calcium 7.2 mg/dL (8.7-10.4); Glucose 145 mg/dL (74-106)
[2025-02-03 17:13] LABS: Lactic Acid w/Reflex 4.7 mmol/L (0.4-2.0)
--- NOTE | 2025-02-03 17:16 | DVHPNRES ---
Progress Note Date Seen: Feb 03, 2025 Resident Creating Document: BRANDY HERNANDEZ RESIDENT Medical Necessity Reason Pt with a Central, PICC or Fol: Yes The following are medically ne: Central Line, Cancino Catheter Subjective Review of Systems Patient is a 54-year-old female with a medical history of substance use currently reported to be on methadone was brought to the hospital by EMS after she was found unresponsive at home. As per the records from the ER physician, patient was found by her partner lying unresponsive. Unknown downtime. Call receive at 9:53 p.m., and arrived on scene at 10:07 p.m. were bystander CPR was being done. Patient is still unresponsive, pulseless, asystole. CPR initiated, intubated, placed on autopulse, IV fluids given and epinephrine x 3 given. Patient remained asystole until their arrival at the ER at 10:18 p.m. CPR continued of the ER, able to obtain ROSC at 10:25 p.m. Blood sugar on scene was 129. On arrival patient's pupils were fixed and dilated, intermittent breath sounds with the ventilator with cool and mottled feet. Twelve lead ECG reveals a junctional rhythm with a RBBB, interventricular conduction delay, prolonged QTC interval. Troponin levels initially were 316 [place] [address]. Patient had anion gap metabolic acidosis with lactic acid of 13.2 with a low potassium level of 2.4. Medical history: substance use Surgical history: Unknown Social history: As per the daughter patient was recently evicted from her apartment and has been living with her partner Home medications: As per family follows at methadone clinic Review of systems Patient seen and examined at the bedside. No response to verbal commands. Urine output 100 mL over the day. Objective vital signs Vital Sign Date Time Temp Pulse Resp B/P (MAP) Pulse Ox O2 Delivery O2 Flow Rate FiO2 02/03/25 15:50 98.1 85 28 140/67 (91) 100 208.6 02/03/25 15:40 30 02/03/25 14:00 Mechanical Ventilator+ Total Intake and Output 02/02/25 02/02/25 02/03/25 15:00 23:00 07:00 Intake Total 30.315 ml 2972.11314 ml Output Total 0 ml Balance 30.315 ml 2972.07677 ml medications Current Medications Medications Dose Ordered Sig/Abelardo Route Start Time Stop Time Status Last Admin Dose Admin Midazolam HCl 50 ml @ 1 mls/hr Q24H IV 02/02/25 22:45 02/02/25 22:40 7 MLS/HR Fentanyl Citrate 250 ml @ 2.5 mls/hr Q24H IV 02/02/25 23:15 02/02/25 23:15 5 MLS/HR Propofol 100 ml @ 1.565 mls/ hr Q24H IV 02/03/25 02:00 02/03/25 02:00 1.565 MLS/HR Ceftriaxone Sodium 50 ml @ 100 mls/hr DAILY@09 IV 02/04/25 09:00 Vancomycin HCl 0 ml @ 0 mls/hr UD IV 02/03/25 03:00 Diagnostic Test (Pha) 1 strip Q6HR 02/03/25 06:00 02/03/25 11:20 1 STRIP Insulin Human Regular Q6HR SC 02/03/25 06:00 02/03/25 11:20 2 UNITS Dextrose 50 ml UD PRN IV 02/03/25 03:00 Dopamine HCl/ Dextrose 250 ml @ 9.781 mls/ hr Q24H IV 02/03/25 06:15 02/03/25 12:18 39.122 MLS/HR Vasopressin 20 units/Sodium Chloride 100 ml @ 9 mls/hr Q11H7M IV 02/03/25 06:15 02/03/25 14:30 9 MLS/HR Phenylephrine HCl 80 mg/Sodium Chloride 250 ml @ 7.5 mls/hr Q24H IV 02/03/25 08:00 02/03/25 15:38 29.063 MLS/HR Norepinephrine Bitartrate 32 mg/ Sodium Chloride 250 ml @ 0.938 mls/ hr Q24H IV 02/03/25 08:00 02/03/25 09:08 14.063 MLS/HR Epinephrine HCl 16 mg/Dextrose 250 ml @ 1.875 mls/ hr Q24H IV 02/03/25 08:00 02/03/25 09:11 9.375 MLS/HR Potassium Chloride 100 ml @ 50 mls/hr Q2H IV 02/03/25 09:45 02/03/25 17:44 02/03/25 15:19 50 MLS/HR Heparin Sodium/ Dextrose 250 ml @ 3 mls/hr Q24H IV 02/03/25 15:30 Mupirocin 1 applic BID EACHNOSTRI 02/03/25 22:00 02/08/25 21:59 UNV Examination Gen - no pallor, no icterus, no edema . Skin - Patients skin is warm and dry. HEENT - normocephalic, atraumatic, dry mucous membranes. Neck - no JVD Pulmonary - B/L equal air entry with bilateral coarse sounds, no wheezing, no stridor. cardiovascular - regular S1,S2 heard, no added sounds, no murmurs heard. peripheral pulses normal radial 2+, pedal 2+. capillary refill normal >4 secs. GI - soft, slightly distended abdomen. Bowel sounds hypoactive Neurological - patient is on mechanical ventilation, no sedation, pupils dilated and fixed, no response to pain, absent gag reflex laboratory and microbiology Laboratory Tests 02/03/25 08:45 02/03/25 03:30 Test 02/03/25 08:45 Range/Units Serum Glucose 168 H 74-106 mg/dL Microbiology Date/Time Source Procedure Growth Status 02/03/25 08:40 Nose MRSA Screen - Final Methicillin Resistant S.aureus Complete Problem List/Assessment/Plan Problem List/Assessment/Plan Neurology Acute metabolic encephalopathy status post cardiopulmonary arrest Agonal breathing No brainstem reflexes - on mechanical ventilation - head CT showed no acute intracranial abnormality Cardiovascular Cardiopulmonary arrest s/p ROSC NSTEMI likely type 1 Shock likely cardiogenic/septic - on vasopressor support with norepinephrine, vasopressin, phenylephrine - dopamine - on heparin drip - echocardiogram report pending Respiratory Bilateral pulmonary edema - on mechanical ventilation - peep 5, FiO2 30%, tidal volume 450, RR 28 - CXR shows B/L congestion - dose of Bumex 4 mg IV given Nephrology ZION on CKD likely due to VMN due to shock Anion gap metabolic acidosis Severe Hypokalemia - elevated lactic acid - total of 4 L of fluids given - urine output 100 mL - one dose of bumex given - potassium level at 2, total of 140 mEq potassium given, improved to 5.1 GI Shock liver Hypoalbuminemia - worsening transaminitis - monitor LFTs Infectious disease MRSA nares Possible pneumonia due to gram +/- bacteria Possible Septic shock - on vancomycin and ceftriaxone Right femoral CVC inserted on 02/02 Cancino's inserted on 02/02 Goals of care discussed with the patient daughter Cindy for over 27 minutes. She was explained that as the patient had an unknown time until she was found by her partner and then CPR was given for about 32 minutes after which ROSC was achieved, is highly likely that the patient has anoxic brain injury and on examination patient's pupils are dilated and fixed, no gag reflex. The family is aware and wants to continue the care. Code status: Do not resuscitate Critical care time spent excluding procedures: 59 mins Plan discussed with Dr. Murphy Plan discussed with: Daughter (Cindy), Other (Sister, RN Rubina) My Orders My Orders Orders - BRANDY HERNANDEZ Procedure Category Date Status Time Abg W/ Co-Ox RT 02/03/25 Logged 08:00 Ventilator Orders RT 02/03/25 Transmitted 06:20 Sodium Chl 0.9% PHA 02/03/25 In Process (Ns... 08:00 Sodium Chl 0.9% PHA 02/03/25 In Process (Ns... 08:00 D5w 5% (Dextrose 5%) PHA 02/03/25 In Process W/Epinephrine Hcl I 08:00 Abg W/ Co-Ox RT 02/03/25 Logged 09:45 Ventilator Orders RT 02/03/25 Transmitted 08:19 Potassium Chl PHA 02/03/25 In Process 20meq/100ml 09:45 Lactic Acid W/ Reflex LAB 02/03/25 Logged Order 16:01 Basic Metabolic Panel LAB 02/03/25 Logged 16:01 BRANDY HERNANDEZ Feb 03, 2025 17:16
--- NOTE | 2025-02-03 18:11 | DVHINCON2 ---
Date of service: Feb 03, 2025 Referring Physician leona Reason for Consultation ZION History of Present Illness 54 years old female with unknown exact past medical history presented with chief complaints of altered mental status unresponsiveness cardiac arrest unknown downtime patient's sister and daughter are bedside but they do not know much about her medical history CPR was done patient currently intubated and sedated on multiple vasopressors UDS positive for several drugs she also does methadone Past Medical History As per HPI Past Surgical History Unknown exactly Allergies: Coded Allergies: NO KNOWN ALLERGIES (Unverified , 01/01/25) Home Meds Active Scripts Tramadol HCl (Tramadol HCl) 50 Mg Tab, 50 MG PO BID, #20 TAB Prov:BRITTANY GASPAR PA 01/19/25 Acetaminophen W/ Codeine (Tylenol W/Cod #3) 1 Tab Tb, 1 TAB PO Q6HP PRN, #20 TAB Prov:HEIDI BERNAL PAC 12/26/23 Ibuprofen Micronized (Ibuprofen) 800 Mg Tab, 800 MG PO Q8HP PRN, #30 TAB Prov:HEIDI BERNAL PAC 12/26/23 Current Medications Current Medications Medications (Trade) Dose Ordered Sig/Abelardo Route PRN Reason Start Time Stop Time Status Last Admin Epinephrine HCl 250 ml @ 7.5 mls/hr Q24H IV 02/02/25 22:45 02/03/25 07:54 DC 02/02/25 22:40 Epinephrine HCl 250 ml @ 7.5 mls/hr Q24H IV 02/02/25 22:45 02/02/25 23:08 DC Norepinephrine Bitartrate 250 ml @ 3.75 mls/hr Q24H IV 02/02/25 22:45 02/03/25 07:55 DC 02/03/25 04:03 Midazolam HCl 50 ml @ 1 mls/hr Q24H IV 02/02/25 22:45 02/02/25 22:40 Fentanyl Citrate 250 ml @ 2.5 mls/hr Q24H IV 02/02/25 23:15 02/03/25 16:45 Propofol 100 ml @ 1.565 mls/ hr Q24H IV 02/03/25 02:00 02/03/25 02:00 Famotidine (Pepcid Injection) 20 mg Q12HR IV 02/03/25 10:00 02/03/25 09:10 DC Lactated Ringer's 1,000 ml @ 125 mls/hr Q8H IV 02/03/25 03:00 02/03/25 06:52 DC 02/03/25 05:03 Ceftriaxone Sodium 50 ml @ 100 mls/hr DAILY@09 IV 02/04/25 09:00 Vancomycin HCl 0 ml @ 0 mls/hr UD IV 02/03/25 03:00 Diagnostic Test (Pha) (Accu-Chek Comfort Curve T) 1 strip Q6HR 02/03/25 06:00 02/03/25 17:21 Insulin Human Regular (InsuLIN R) Q6HR SC 02/03/25 06:00 02/03/25 11:20 Dextrose 50 ml UD PRN IV Blood Sugar LESS THAN 60 02/03/25 03:00 Ondansetron HCl (Zofran) 4 mg Q4HP PRN IV NAUSEA / VOMITING 02/03/25 03:00 02/03/25 09:10 DC Potassium Chloride 100 ml @ 50 mls/hr Q2H IV 02/03/25 03:00 02/03/25 08:59 DC 02/03/25 06:18 Heparin Sodium/ Dextrose 250 ml @ 6 mls/hr Q24H IV 02/03/25 03:30 02/03/25 14:31 DC 02/03/25 05:40 Dopamine HCl/ Dextrose 250 ml @ 9.781 mls/ hr Q24H IV 02/03/25 06:15 02/03/25 12:18 Phenylephrine HCl 250 ml @ 30 mls/hr Q8H20M IV 02/03/25 06:15 02/03/25 07:55 DC 02/03/25 07:40 Vasopressin 20 units/Sodium Chloride 100 ml @ 9 mls/hr Q11H7M IV 02/03/25 06:15 02/03/25 14:30 Phenylephrine HCl 80 mg/Sodium Chloride 250 ml @ 7.5 mls/hr Q24H IV 02/03/25 08:00 02/03/25 15:38 Norepinephrine Bitartrate 32 mg/ Sodium Chloride 250 ml @ 0.938 mls/ hr Q24H IV 02/03/25 08:00 02/03/25 09:08 Epinephrine HCl 16 mg/Dextrose 250 ml @ 1.875 mls/ hr Q24H IV 02/03/25 08:00 02/03/25 09:11 Potassium Chloride 100 ml @ 50 mls/hr Q2H IV 02/03/25 09:45 02/03/25 17:44 DC 02/03/25 15:19 Heparin Sodium/ Dextrose 250 ml @ 3 mls/hr Q24H IV 02/03/25 15:30 Mupirocin (Bactroban 2% Ointment) 1 applic BID EACHNOSTRI 02/03/25 22:00 02/08/25 21:59 Review of Systems Unknown H&P Exam Vital Signs/I&O Vital Sign Date Time Temp Pulse Resp B/P (MAP) Pulse Ox O2 Delivery O2 Flow Rate FiO2 02/03/25 17:26 99.3 83 29 137/75 (95) 100 210.7 02/03/25 16:00 Mechanical Ventilator+ 30 30 Intake and Output 02/02/25 02/03/25 19:00 07:00 Intake Total 3002.46077 ml Output Total 0 ml Balance 3002.58746 ml Intake Oral 0 ml IV Total 3002.95817 ml Output Urine Total 0 ml Physical Exam Intubated and sedated Trace edema Fair bilateral air entry Irregular rhythm Labs/Diagnostic Data Labs/Diagnostic Data Laboratory Tests Test 02/03/25 17:21 02/03/25 16:30 02/03/25 13:07 02/03/25 11:20 Range/Units POC Glucose 106 148 H 70-106 mg/dl Sodium Level 143 # 136-145 mmol/L Potassium Level 5.1 # 3.5-5.1 mmol/L Chloride Level 106 98-107 mmol/L Carbon Dioxide Level 25 20-31 mmol/L Anion Gap 12 5-15 Blood Urea Nitrogen 31 H 9-23 mg/dL Creatinine 2.15 H 0.550-1.02 mg/dL Glomerular Filtration Rate Calc 27 >90 mL/min BUN/Creatinine Ratio 14.4 10.0-20.0 Serum Glucose 145 H 74-106 mg/dL Lactic Acid Level 4.7 *H 9.6 *H 0.4-2.0 mmol/L Calcium Level 7.2 L 8.7-10.4 mg/dL Prothrombin Time 15.3 H 9.3-11.8 sec Prothrombin Time INR 1.50 H 0.9-1.15 Activated Partial Thromboplast Time 98.8 *H 24.5-34.5 SEC Test 02/03/25 10:00 02/03/25 08:45 02/03/25 08:06 02/03/25 05:50 Range/Units Blood Gas Specimen Type Arterial Arterial Arterial Blood Gas Sample Site Right radial Right radial Right radial Blood Gas Patient Temperature 37.0 37.0 37.0 Arterial Blood Date Drawn [id number] Arterial Blood pH 7.255 L 7.176 *L 7.148 *L 7.350-7.450 Arterial Blood Partial Pressure CO2 38.1 38.6 25.1 L 32.0-45.0 mmHg Arterial Blood Partial Pressure O2 104.3 111.1 H 151.2 H 83.0-108.0 mmHg Arterial Blood HCO3 16.5 L 14.0 L 8.5 L 21.0-28.0 mmol/L Arterial Blood Oxygen Saturation 96.8 96.8 98.0 94.0-98.0 % Arterial Blood Base Excess -9.9 L -13.7 L -18.7 L -2.0-3.0 mmol/L Arterial Blood Oxyhemoglobin 96.1 96.1 97.3 94.0-98.0 % Arterial Blood Carboxyhemoglobin 0.3 L 0.3 L 0.3 L 0.5-1.5 % Arterial Blood Methemoglobin 0.4 0.4 0.4 0.0-1.5 % Simone Test Modified Modified Modified Blood Gas Total Hemoglobin 14.00 13.60 14.10 12.0-16.0 g/dL Blood Gas Set Respiration Rate 28.0 22.0 18.0 Blood Gas Modality Vent - ac Vent - ac Vent - ac FiO2 % 30.0 40.0 40.0 Blood Gas Tidal Volume 450.0 450.0 450.0 Blood Gas PEEP or CPAP 5.0 5.0 5.0 Sodium Level 148 #H 136-145 mmol/L Potassium Level 2.3 *L 3.5-5.1 mmol/L Chloride Level 107 98-107 mmol/L Carbon Dioxide Level 18 L 20-31 mmol/L Anion Gap 23 H 5-15 Blood Urea Nitrogen 31 H 9-23 mg/dL Creatinine 1.98 #H 0.550-1.02 mg/dL Glomerular Filtration Rate Calc 30 >90 mL/min BUN/Creatinine Ratio 15.7 10.0-20.0 Serum Glucose 168 H 74-106 mg/dL Lactic Acid Level 11.0 *H 0.4-2.0 mmol/L Calcium Level 7.1 L 8.7-10.4 mg/dL Total Bilirubin 1.0 0.2-1.0 mg/dL Aspartate Amino Transferase (AST) 1425 H 13-40 U/L Alanine Aminotransferase (ALT) 534 H 7-40 U/L Alkaline Phosphatase 123 H 46-116 U/L Total Protein 4.9 L 5.7-8.2 g/dL Albumin 2.8 L 3.2-4.8 g/dL Blood Gas Critical Value Read Back Yes Yes Blood Gas Notified Whom janice Maya md, f dnp Blood Gas Notified Time [id number] Blood Gas Notified By marguerite Figueredo [employer] social [employer] mary Villela 02/03/25 05:33 02/03/25 05:25 02/03/25 03:30 02/03/25 01:40 Range/Units Urine Color Light-orange Yellow Urine Clarity Turbid H Clear Urine pH 6.0 5.0-9.0 Urine Specific [place] 1.012 1.001-1.035 Urine Protein 2+ H Negative Urine Ketones Negative Negative Urine Blood 3+ H Negative /uL Urine Nitrite Negative Negative Urine Bilirubin Negative Negative Urine Urobilinogen 2 H Negative mg/dL Urine Leukocyte Esterase Negative Negative /uL Urine RBC 18 0 - 4 /hpf Urine Microscopic WBC 24 H 0-5 /HPF Urine Squamous Epithelial Cells Few <5 /hpf Urine Amorphous Crystals Few None Seen /hpf Urine Bacteria None seen None Seen /hpf Urine Hyaline Casts Few 0 - 2 /lpf Urine Glucose 3+ H Normal mg/dL Urine Opiates Screen Neg NEGATIVE Urine Fentanyl Screen Pos NEGATIVE Urine Barbiturates Screen Neg NEGATIVE Urine Phencyclidine Screen Neg NEGATIVE Urine Amphetamines Screen Pos NEGATIVE Urine Benzodiazepines Screen Pos NEGATIVE Urine Cocaine Screen Neg NEGATIVE Urine Cannabinoids Screen Neg NEGATIVE POC Glucose 236 H 70-106 mg/dl White Blood Count 19.7 #H 4.4-10.8 10^3/uL Red Blood Count 4.71 4.0-5.20 10^6/uL Hemoglobin 13.6 12.2-16.2 g/dL Hematocrit 41.1 36.0-46.0 % Mean Corpuscular Volume 87.2 80.0-100.0 fL Mean Corpuscular Hemoglobin 29.0 28.0-32.0 pg Mean Corpuscular Hemoglobin Concent 33.2 32.0-36.0 g/dL Red Cell Distribution Width 15.4 H 11.8-14.3 % Platelet Count 311 140-450 10^3/uL Mean Platelet Volume 8.7 6.9-10.8 fL Neutrophils (%) (Auto) 87.7 H 37.0-80.0 % Lymphocytes (%) (Auto) 6.1 L 10.0-50.0 % Monocytes (%) (Auto) 6.0 0.0-12.0 % Eosinophils (%) (Auto) 0.1 0.0-7.0 % Basophils (%) (Auto) 0.1 0.0-2.0 % Neutrophils # (Auto) 17.3 H 1.6-8.6 10 ^3/uL Lymphocytes # (Auto) 1.2 0.4-5.4 10 ^3/uL Monocytes # (Auto) 1.2 0-1.3 10 ^3/uL Eosinophils # (Auto) 0 0-0.8 10 ^3/uL Basophils # (Auto) 0 0-0.2 10 ^3/uL Nucleated Red Blood Cells 0.1 % Prothrombin Time 11.7 9.3-11.8 sec Prothrombin Time INR 1.12 0.9-1.15 Activated Partial Thromboplast Time 38.5 H 24.5-34.5 SEC Sodium Level 143 136-145 mmol/L Potassium Level 2.0 *L 3.5-5.1 mmol/L Chloride Level 109 H 98-107 mmol/L Carbon Dioxide Level 19 L 20-31 mmol/L Anion Gap 15 5-15 Blood Urea Nitrogen 27 H 9-23 mg/dL Creatinine 1.48 H 0.550-1.02 mg/dL Glomerular Filtration Rate Calc 42 >90 mL/min BUN/Creatinine Ratio 18.2 10.0-20.0 Serum Glucose 255 H 74-106 mg/dL Hemoglobin A1c 5.1 <5.7 % A1C Lactic Acid Level 5.6 *H 0.4-2.0 mmol/L Calcium Level 7.0 L 8.7-10.4 mg/dL Total Bilirubin 0.6 0.2-1.0 mg/dL Aspartate Amino Transferase (AST) 428 H 13-40 U/L Alanine Aminotransferase (ALT) 115 H 7-40 U/L Alkaline Phosphatase 125 H 46-116 U/L Total Protein 4.9 L 5.7-8.2 g/dL Albumin 2.8 L 3.2-4.8 g/dL Free Thyroxine (T4) Calculated 1.18 0.89-1.76 ng/dL Free Triiodothyronine (T3) pg/mL 2.90 2.3-4.2 pg/mL Troponin I High Sensitivity 64876 *H </=34 ng/L Test 02/03/25 00:36 02/02/25 23:49 02/02/25 23:40 02/02/25 23:25 Range/Units Lactic Acid Level 8.2 *H 0.4-2.0 mmol/L Sodium Level 141 136-145 mmol/L Potassium Level 2.1 *L 2.0 *L 3.5-5.1 mmol/L Chloride Level 101 98-107 mmol/L Carbon Dioxide Level 18 L 20-31 mmol/L Anion Gap 22 H 5-15 Blood Urea Nitrogen 25 H 9-23 mg/dL Creatinine 1.57 H 0.550-1.02 mg/dL Glomerular Filtration Rate Calc 39 >90 mL/min BUN/Creatinine Ratio 15.9 10.0-20.0 Serum Glucose 362 H 74-106 mg/dL Calcium Level 8.8 8.7-10.4 mg/dL Blood Gas Specimen Type Arterial Blood Gas Sample Site Right radial Blood Gas Patient Temperature 37.0 Arterial Blood Date Drawn [id number] Arterial Blood pH 7.268 L 7.350-7.450 Arterial Blood Partial Pressure CO2 28.7 L 32.0-45.0 mmHg Arterial Blood Partial Pressure O2 356.5 *H 83.0-108.0 mmHg Arterial Blood HCO3 12.8 L 21.0-28.0 mmol/L Arterial Blood Oxygen Saturation 99.8 H 94.0-98.0 % Arterial Blood Base Excess -12.7 L -2.0-3.0 mmol/L Arterial Blood Oxyhemoglobin 98.6 H 94.0-98.0 % Arterial Blood Carboxyhemoglobin 0.6 0.5-1.5 % Arterial Blood Methemoglobin 0.6 0.0-1.5 % Simone Test Yes Blood Gas Total Hemoglobin 12.60 12.0-16.0 g/dL Blood Gas Set Respiration Rate 18.0 Blood Gas Modality Vent - ac FiO2 % 100.0 Blood Gas Tidal Volume 450.0 Blood Gas PEEP or CPAP 5.0 Blood Gas Critical Value Read Back yes Blood Gas Notified Whom Dr. lamb Blood Gas Notified Time [id number] Blood Gas Notified By ned fernandez rt Troponin I High Sensitivity 3496 *H </=34 ng/L Test 02/02/25 22:53 02/02/25 22:30 Range/Units Lactic Acid Level 13.2 *H 0.4-2.0 mmol/L White Blood Count 9.2 4.4-10.8 10^3/uL Red Blood Count 4.50 4.0-5.20 10^6/uL Hemoglobin 13.0 12.2-16.2 g/dL Hematocrit 40.3 36.0-46.0 % Mean Corpuscular Volume 89.4 80.0-100.0 fL Mean Corpuscular Hemoglobin 28.8 28.0-32.0 pg Mean Corpuscular Hemoglobin Concent 32.2 32.0-36.0 g/dL Red Cell Distribution Width 15.3 H 11.8-14.3 % Platelet Count 204 140-450 10^3/uL Mean Platelet Volume 9.0 6.9-10.8 fL Neutrophils (%) (Auto) 44.2 37.0-80.0 % Lymphocytes (%) (Auto) 48.2 10.0-50.0 % Monocytes (%) (Auto) 5.4 0.0-12.0 % Eosinophils (%) (Auto) 0.4 0.0-7.0 % Basophils (%) (Auto) 1.8 0.0-2.0 % Neutrophils # (Auto) 4.1 1.6-8.6 10 ^3/uL Lymphocytes # (Auto) 4.4 0.4-5.4 10 ^3/uL Monocytes # (Auto) 0.5 0-1.3 10 ^3/uL Eosinophils # (Auto) 0 0-0.8 10 ^3/uL Basophils # (Auto) 0.2 0-0.2 10 ^3/uL Nucleated Red Blood Cells 0.5 % Prothrombin Time 11.3 9.3-11.8 sec Prothrombin Time INR 1.07 0.9-1.15 Sodium Level 137 136-145 mmol/L Potassium Level 2.4 *L 3.5-5.1 mmol/L Chloride Level 96 L 98-107 mmol/L Carbon Dioxide Level 21 20-31 mmol/L Anion Gap 20 H 5-15 Blood Urea Nitrogen 25 H 9-23 mg/dL Creatinine 1.56 H 0.550-1.02 mg/dL Glomerular Filtration Rate Calc 40 >90 mL/min BUN/Creatinine Ratio 16.0 10.0-20.0 Serum Glucose 305 H 74-106 mg/dL Calcium Level 10.0 8.7-10.4 mg/dL Magnesium Level 3.4 H 1.6-2.6 mg/dL Total Bilirubin 0.4 0.2-1.0 mg/dL Aspartate Amino Transferase (AST) 117 H 13-40 U/L Alanine Aminotransferase (ALT) 60 H 7-40 U/L Alkaline Phosphatase 83 46-116 U/L Troponin I High Sensitivity 316 *H </=34 ng/L B-Type Natriuretic Peptide 164.78 0-100 pg/mL Total Protein 5.9 5.7-8.2 g/dL Albumin 3.4 3.2-4.8 g/dL Lipase 30 12-53 U/L Thyroid Stimulating Hormone (TSH) 2.25 0.55-4.78 uIU/mL Plasma/Serum Blood Alcohol 3.1 <10 mg/dL Microbiology Date/Time Source Procedure Growth Status 02/03/25 08:40 Nose MRSA Screen - Final Methicillin Resistant S.aureus Complete Assessment Acute kidney injury likely in the setting of shock acute kidney injury likely ATN in the setting Of shock polysubstance abuse suspected drug overdose Cardiac arrest status post CPR Ventilator-dependent hypoxic respiratory failure Shock Lactic acidosis Hypokalemia Recommendations Persistent hypokalemia likely secondary to IV bicarb DC bicarb based fluids K replaced Bumex IV challenge And monitor renal function closely Strict Is&Os Discussed with daughter and sister bedside all questions answered Discussed with ICU team RN Reviewed vital signs, lab work, imaging studies, medications, microbiology, other physician recommendations Total time spent 80 minutes More than 50% of the time spent providing direct [id number] care . Thank you for allowing me to participate in the care of your patient. Plan discussed with: Daughter, Other ALLISON LOPEZ MD Feb 03, 2025 18:11
--- NOTE | 2025-02-03 19:10 | DVHINCON2 ---
Date Seen: Feb 03, 2025 Referring Physician TAHIR Sousa Reason for Consultation Cardiac arrest History of Present Illness This is a 54-year-old female with an unknown PMH who presents to ED status post cardiopulmonary arrest. At the time of assessment, the patient is mechanically ventilated. History was obtained from bedside RN and medical records. According to documentation, the patient was found unresponsive with an unknown downtime. A bystander who found the patient initiated CPR and called EMS. EMS continued CPR until ED arrival and ROSC was achieved. According to documented times, EMS was called at 9:53 p.m. and ROSC was achieved in the emergency room at 10:25 p.m, but downtime prior to EMS being called to the scene is unknown. Initial twelve lead electrocardiogram reveals a junctional rhythm with right bundle branch block, intraventricular conduction delay, and prolonged QTc interval. Initial troponin level of 316ng/L with up trend and current peak level at 22820zl/L.No family members are present at bedside to give any prior medical history. CT head showed no acute intracranial process. Chest x-ray shows mixed perihilar opacities which could reflect atelectasis or pneumonia. Patient was admitted to the hospital. I am asked to consult on this patient. Past Medical History As per [facility] Past Surgical History Unknown Allergies: Coded Allergies: NO KNOWN ALLERGIES (Unverified , 01/01/25) Home Meds Active Scripts Tramadol HCl (Tramadol HCl) 50 Mg Tab, 50 MG PO BID, #20 TAB Prov:BRITTANY GASPAR 01/19/25 Acetaminophen W/ Codeine (Tylenol W/Cod #3) 1 Tab Tb, 1 TAB PO Q6HP PRN, #20 TAB Prov:HEIDI BERNAL PAC 12/26/23 Ibuprofen Micronized (Ibuprofen) 800 Mg Tab, 800 MG PO Q8HP PRN, #30 TAB Prov:HEIDI BERNAL PAC 12/26/23 Current Medications Current Medications Medications (Trade) Dose Ordered Sig/Abelardo Route PRN Reason Start Time Stop Time Status Last Admin Epinephrine HCl 250 ml @ 7.5 mls/hr Q24H IV 02/02/25 22:45 02/03/25 07:54 DC 02/02/25 22:40 Epinephrine HCl 250 ml @ 7.5 mls/hr Q24H IV 02/02/25 22:45 02/02/25 23:08 DC Norepinephrine Bitartrate 250 ml @ 3.75 mls/hr Q24H IV 02/02/25 22:45 02/03/25 07:55 DC 02/03/25 04:03 Midazolam HCl 50 ml @ 1 mls/hr Q24H IV 02/02/25 22:45 02/02/25 22:40 Fentanyl Citrate 250 ml @ 2.5 mls/hr Q24H IV 02/02/25 23:15 02/02/25 23:15 Propofol 100 ml @ 1.565 mls/ hr Q24H IV 02/03/25 02:00 02/03/25 02:00 Famotidine (Pepcid Injection) 20 mg Q12HR IV 02/03/25 10:00 02/03/25 09:10 DC Lactated Ringer's 1,000 ml @ 125 mls/hr Q8H IV 02/03/25 03:00 02/03/25 06:52 DC 02/03/25 05:03 Ceftriaxone Sodium 50 ml @ 100 mls/hr DAILY@09 IV 02/04/25 09:00 Vancomycin HCl 0 ml @ 0 mls/hr UD IV 02/03/25 03:00 Diagnostic Test (Pha) (Accu-Chek Comfort Curve T) 1 strip Q6HR 02/03/25 06:00 02/03/25 11:20 Insulin Human Regular (InsuLIN R) Q6HR SC 02/03/25 06:00 02/03/25 11:20 Dextrose 50 ml UD PRN IV Blood Sugar LESS THAN 60 02/03/25 03:00 Ondansetron HCl (Zofran) 4 mg Q4HP PRN IV NAUSEA / VOMITING 02/03/25 03:00 02/03/25 09:10 DC Potassium Chloride 100 ml @ 50 mls/hr Q2H IV 02/03/25 03:00 02/03/25 08:59 DC 02/03/25 06:18 Heparin Sodium/ Dextrose 250 ml @ 6 mls/hr Q24H IV 02/03/25 03:30 02/03/25 05:40 Dopamine HCl/ Dextrose 250 ml @ 9.781 mls/ hr Q24H IV 02/03/25 06:15 02/03/25 12:18 Phenylephrine HCl 250 ml @ 30 mls/hr Q8H20M IV 02/03/25 06:15 02/03/25 07:55 DC 02/03/25 07:40 Vasopressin 20 units/Sodium Chloride 100 ml @ 9 mls/hr Q11H7M IV 02/03/25 06:15 02/03/25 06:20 Phenylephrine HCl 80 mg/Sodium Chloride 250 ml @ 7.5 mls/hr Q24H IV 02/03/25 08:00 02/03/25 09:11 Norepinephrine Bitartrate 32 mg/ Sodium Chloride 250 ml @ 0.938 mls/ hr Q24H IV 02/03/25 08:00 02/03/25 09:08 Epinephrine HCl 16 mg/Dextrose 250 ml @ 1.875 mls/ hr Q24H IV 02/03/25 08:00 02/03/25 09:11 Potassium Chloride 100 ml @ 50 mls/hr Q2H IV 02/03/25 09:45 02/03/25 17:44 02/03/25 11:06 Review of Systems Constitutional: No symptom reported Ears, Nose, & Throat: No symptom reported Eyes: No symptom reported Neurological: No symptoms reported Pulmonary/Respiratory: Cardiopulmonary arrest Cardiovascular: Cardiopulmonary arrest Gastrointestinal: No symptom reported Genitourinary: No symptom reported Musculoskeletal: No symptom reported Skin: No symptom reported Psychiatric: No symptom reported Endocrine: No symptom reported Hematologic/Lymphatic: No symptom reported Vital Signs Vital Signs Date Time Temp Pulse Resp B/P (MAP) Pulse Ox O2 Delivery O2 Flow Rate FiO2 02/03/25 12:18 129/80 02/03/25 12:15 95.7 75 28 100 204.3 02/03/25 12:00 30 02/03/25 12:00 Mechanical Ventilator+ Physical Exam GENERAL: Ill appearing, intubated on ventilator. EYES: PERRL, EOMI. Anicteric. HENT: Moist mucous membranes. LUNGS: Decreased breath sounds. CARDIOVASCULAR: Irregular rate and rhythm. ABDOMEN: Soft, nontender and nondistended. EXTREMITIES: Trace edema. SKIN: Bilateral feet are mottled. Labs/Diagnostic Data Labs Test 02/03/25 11:20 02/03/25 10:00 02/03/25 08:45 02/03/25 08:06 Range/Units POC Glucose 148 H 70-106 mg/dl Blood Gas Specimen Type Arterial Blood Gas Sample Site Right radial Blood Gas Patient Temperature 37.0 Arterial Blood Date Drawn [id number] Arterial Blood pH 7.255 L 7.350-7.450 Arterial Blood Partial Pressure CO2 38.1 32.0-45.0 mmHg Arterial Blood Partial Pressure O2 104.3 83.0-108.0 mmHg Arterial Blood HCO3 16.5 L 21.0-28.0 mmol/L Arterial Blood Oxygen Saturation 96.8 94.0-98.0 % Arterial Blood Base Excess -9.9 L -2.0-3.0 mmol/L Arterial Blood Oxyhemoglobin 96.1 94.0-98.0 % Arterial Blood Carboxyhemoglobin 0.3 L 0.5-1.5 % Arterial Blood Methemoglobin 0.4 0.0-1.5 % Simone Test Modified Blood Gas Total Hemoglobin 14.00 12.0-16.0 g/dL Blood Gas Set Respiration Rate 28.0 Blood Gas Modality Vent - ac FiO2 % 30.0 Blood Gas Tidal Volume 450.0 Blood Gas PEEP or CPAP 5.0 Sodium Level 148 #H 136-145 mmol/L Potassium Level 2.3 *L 3.5-5.1 mmol/L Chloride Level 107 98-107 mmol/L Carbon Dioxide Level 18 L 20-31 mmol/L Anion Gap 23 H 5-15 Blood Urea Nitrogen 31 H 9-23 mg/dL Creatinine 1.98 #H 0.550-1.02 mg/dL Glomerular Filtration Rate Calc 30 >90 mL/min BUN/Creatinine Ratio 15.7 10.0-20.0 Serum Glucose 168 H 74-106 mg/dL Lactic Acid Level 11.0 *H 0.4-2.0 mmol/L Calcium Level 7.1 L 8.7-10.4 mg/dL Total Bilirubin 1.0 0.2-1.0 mg/dL Aspartate Amino Transferase (AST) 1425 H 13-40 U/L Alanine Aminotransferase (ALT) 534 H 7-40 U/L Alkaline Phosphatase 123 H 46-116 U/L Total Protein 4.9 L 5.7-8.2 g/dL Albumin 2.8 L 3.2-4.8 g/dL Blood Gas Critical Value Read Back Yes Blood Gas Notified Whom janice Maya md Blood Gas Notified Time [id number] Blood Gas Notified By marguerite Figueredo vacuum form operator Test 02/03/25 05:33 02/03/25 03:30 02/03/25 01:40 02/02/25 22:30 Range/Units Urine Color Light-orange Yellow Urine Clarity Turbid H Clear Urine pH 6.0 5.0-9.0 Urine Specific [place] 1.012 1.001-1.035 Urine Protein 2+ H Negative Urine Ketones Negative Negative Urine Blood 3+ H Negative /uL Urine Nitrite Negative Negative Urine Bilirubin Negative Negative Urine Urobilinogen 2 H Negative mg/dL Urine Leukocyte Esterase Negative Negative /uL Urine RBC 18 0 - 4 /hpf Urine Microscopic WBC 24 H 0-5 /HPF Urine Squamous Epithelial Cells Few <5 /hpf Urine Amorphous Crystals Few None Seen /hpf Urine Bacteria None seen None Seen /hpf Urine Hyaline Casts Few 0 - 2 /lpf Urine Glucose 3+ H Normal mg/dL Urine Opiates Screen Neg NEGATIVE Urine Fentanyl Screen Pos NEGATIVE Urine Barbiturates Screen Neg NEGATIVE Urine Phencyclidine Screen Neg NEGATIVE Urine Amphetamines Screen Pos NEGATIVE Urine Benzodiazepines Screen Pos NEGATIVE Urine Cocaine Screen Neg NEGATIVE Urine Cannabinoids Screen Neg NEGATIVE White Blood Count 19.7 #H 4.4-10.8 10^3/uL Red Blood Count 4.71 4.0-5.20 10^6/uL Hemoglobin 13.6 12.2-16.2 g/dL Hematocrit 41.1 36.0-46.0 % Mean Corpuscular Volume 87.2 80.0-100.0 fL Mean Corpuscular Hemoglobin 29.0 28.0-32.0 pg Mean Corpuscular Hemoglobin Concent 33.2 32.0-36.0 g/dL Red Cell Distribution Width 15.4 H 11.8-14.3 % Platelet Count 311 140-450 10^3/uL Mean Platelet Volume 8.7 6.9-10.8 fL Neutrophils (%) (Auto) 87.7 H 37.0-80.0 % Lymphocytes (%) (Auto) 6.1 L 10.0-50.0 % Monocytes (%) (Auto) 6.0 0.0-12.0 % Eosinophils (%) (Auto) 0.1 0.0-7.0 % Basophils (%) (Auto) 0.1 0.0-2.0 % Neutrophils # (Auto) 17.3 H 1.6-8.6 10 ^3/uL Lymphocytes # (Auto) 1.2 0.4-5.4 10 ^3/uL Monocytes # (Auto) 1.2 0-1.3 10 ^3/uL Eosinophils # (Auto) 0 0-0.8 10 ^3/uL Basophils # (Auto) 0 0-0.2 10 ^3/uL Nucleated Red Blood Cells 0.1 % Prothrombin Time 11.7 9.3-11.8 sec Prothrombin Time INR 1.12 0.9-1.15 Activated Partial Thromboplast Time 38.5 H 24.5-34.5 SEC Hemoglobin A1c 5.1 <5.7 % A1C Free Thyroxine (T4) Calculated 1.18 0.89-1.76 ng/dL Free Triiodothyronine (T3) pg/mL 2.90 2.3-4.2 pg/mL Troponin I High Sensitivity 95166 *H </=34 ng/L Magnesium Level 3.4 H 1.6-2.6 mg/dL B-Type Natriuretic Peptide 164.78 0-100 pg/mL Lipase 30 12-53 U/L Thyroid Stimulating Hormone (TSH) 2.25 0.55-4.78 uIU/mL Plasma/Serum Blood Alcohol 3.1 <10 mg/dL Assessment Cardiopulmonary arrest s/p CPR with return of spontaneous circulation. NSTEMI. Rule out structural heart disease. Prolonged QTc interval. Septic shock. Hypokalemia. Acute kidney injury. Transaminitis. Polysubstance abuse. Plan/Recommendation I agree with your ongoing assessment and care of plan. Patient has been seen by Corina Samuels NP on my behalf, her and I discussed the plan with the patient. Patient's case was discussed with me. We will proceed with obtaining a transthoracic echocardiogram to evaluate cardiac function. The patient who presented with cardiopulmonary arrest underwent CPR with return of spontaneous circulation. Total downtime is unknown given that the patient was found unresponsive. Downtime from the time EMS was called to emergency room arrival is at least 32 minutes per documented times. Troponin levels notably elevated. NSTEMI type 1 versus 2. At the time of assessment, the patient is maxed on five vasopressors for hemodynamic support. Bilateral pupils are fixed, dilated, and nonreactive. The patient is also off of all sedatives and does not present with a cough or gag reflex. At this time, the patient is not a candidate for any invasive cardiac procedures. Patient has a very poor prognosis. Consider goals of care with family. Additional plan as per the hospital course. Mechanical ventilator parameters, treatment and adjustments have personally been reviewed by me and treatment plan by healthcare market consultant has also been reviewed. Plan discussed with: Other NYHA Physical activity limitations: NA Date of Service: Feb 03, 2025 Billing Provider: SKYE GONZALES MD Cardiology Common Codes: 85281-VERDVKG INP/OBS CARE (High) Cardiology Consultation Codes: 55958-[id number] CONSULT <80MIN SKYE GONZALES MD Feb 03, 2025 12:46
--- NOTE | 2025-02-03 20:36 | DVH ---
CHEST RADIOGRAPH Indication: on vent, b/l coarse sounds Technique: Single frontal view of the chest was obtained Comparison: XY CHEST PORTABLE on DOS: 02/02/25 FINDINGS: Lines and Tubes: Endotracheal tube 1.4 cm above the anuj recommend withdrawal 2-3 cm. AED pads over the chest. Pneumoperitoneum is of clinical concern recommend CT of the abdomen and pelvis Lungs: No focal consolidation. Pleura: No effusion. No pneumothorax. Cardiomediastinal contours: Unremarkable Bones: No acute osseous abnormality. IMPRESSION: 1. Endotracheal tube 1.4 cm above the anuj. Recommend withdrawal 2-3 cm. 2. AED pads lower left chest. 3. If pneumoperitoneum is of clinical concern recommend CT of the abdomen and pelvis. HS:Y
[2025-02-03 21:40] LABS: INR 1.59 (0.9-1.15); Partial Thromboplastin Time 54.1 SEC (24.5-34.5); Prothrombin Time 16.1 sec (9.3-11.8)
[2025-02-03] MEDS: MUPIROCIN 2% OINT 15gm or 22gm FOR MRSA NARES EACHNOSTRI SCH (22:20)
--- NOTE | 2025-02-03 22:54 | DVH ---
BILATERAL Lower Extremity Arterial Duplex Date: 02/03/2025 09:44 PM Clinical History: no pedal pulses found Comparison: US RT LOWER DVT on DOS: 01/19/25 Technique: Duplex Doppler evaluation including color Doppler and spectral/pulsed waveform analysis of the lower extremity arteries was performed. Finding: RIGHT: Peak systolic velocities are as follows: SENIOR RADIATION THERAPIST not visualized cm/s Deep femoral 78 cm/s monophasic waveform SFA proximal 77 cm/s triphasic waveform SFA mid-portion 52 cm/s triphasic waveform SFA distal 52 cm/s triphasic waveform Popliteal 59 cm/s triphasic waveform Posterior tibial 25 cm/s monophasic waveform Anterior tibial 41 cm/s biphasic waveform Dorsalis pedis 31 cm/s biphasic waveform The waveforms are monophasic waveform in the deep femoral artery common femoral. LEFT: Peak systolic velocities are as follows: SENIOR RADIATION THERAPIST 47 cm/s triphasic waveform Deep femoral 73 cm/s monophasic waveform SFA proximal 69 cm/s triphasic waveform SFA mid-portion 51 cm/s triphasic waveform SFA distal 60 cm/s triphasic waveform Popliteal 57 cm/s triphasic waveform Posterior tibial 20 cm/s monophasic waveform Anterior tibial 48 cm/s triphasic waveform Dorsalis pedis 25 cm/s monophasic waveform The waveforms are monophasic waveform in the deep femoral artery and [id number]. Triphasic wavefo rm throughout the superficial femoral artery popliteal artery anterior tibial artery.. REFERENCE VALUES, [facility]) vascular Imaging Lab Criteria: Peak systolic velocity ranges (in cm/sec) are as follows: <150 cm/s - <20 % stenosis 150-200 cm/s - 20-49% stenosis 200-300 cm/s - 50-75% stenosis >300 cm/s -> 75% stenosis IMPRESSION: 1. Monophasic waveforms in the posterior tibial arteries and dorsalis pedis bilaterally. 2. Incidentally thrombus was noted in the left popliteal vein consistent with deep venous thrombosis. RN aware of the findings 3. No significant focal stenosis is identified. HS:Y
[2025-02-04] VITALS (106 sets, daily range): BP systolic 86–134; BP diastolic 55–93; PULSE 69–92; RESP 22–30; TEMP 98.1–99.7; O2SAT 72–100
[2025-02-04] MEDS: VASOPRESSIN 20 UNIT/ML ONE (00:16)
--- NOTE | 2025-02-04 00:55 | DVHSR ---
APPROVED REPORT EXAM: Two-dimensional and M-mode echocardiogram with Doppler and color Doppler. Blood Pressure: 96/39 mmHg INDICATION cardiac arrest RISK FACTORS Height: 5'1, Weight: 114 DIMENSIONS LVDd5.6 (3.8-5.7cm)LA (2D)4.7 (1.9-4.0cm)Aortic Root (2.0-3.7cm) LVDs4.2 (2.5-4.0cm)LA (MM) (1.9-4.0cm)Aortic Cusp Exc (1.5-2.0cm) EF (%) 50.0 (55-70%)Rt. Atrium3.8 (1.9-4.0cm)Asc. Aorta cm IVSd0.9 (0.7-1.1cm)RV (D) (1.8-2.4cm) PWd0.8 (0.7-1.1cm) Mitral Valve MitralMitral Stenosis E wave0.56m/sMV Mean GR.mmHg A wave0.45m/sMV Peak GR.47mmHg E/A ratio1.22D MVAcm2 DECEL [id number] 1/2 Timems Aortic Valve Aortic ValveAortic Stenosis V10.66m/Monserrat Mean GR.mmHg V21.19m/Monserrat Peak GR.6mmHg LVOT Diameter1.6 (1.8-2.4cm)Doppler AVA1.11cm2 Pulmonic Valve V20.71m/s Tricuspid Valve TR Velocity2.72m/s [id number] Other Information Technically limited study due to pt on vent, unstable Conclusion MILD LVH AND MILD LV DIASTOLIC DYSFUCTION LV EF 50% DYSKINESIS OF IVS MODERATELY DILATED RV MODERATE DEGREE PULMONARY HYPERTENSION RVSP IS 46 MM OF HG AND IS MODERATELY HIGH MODERATELY DILATED LA NORMAL VALVES NO EFFUSION
[2025-02-04] MEDS: DEXTROSE (50%) 50ML SYRG IV PRN (01:30)
[2025-02-04 02:11] LABS: Hematocrit 40.3 % (36.0-46.0); Hemoglobin 13.3 g/dL (12.2-16.2); Mean Corpuscular Hemoglobin 28.8 pg (28.0-32.0); Mean Corpuscular Volume 87.3 fL (80.0-100.0); Nucleated Red Blood Cells % 0.2 %
[2025-02-04 02:15] LABS: Base Excess -0.9 mmol/L (-2.0-3.0)
--- NOTE | 2025-02-04 02:19 | RESUS ---
RADHA HOANG ASSESSSMENT History of Events History of Events: Pt FSBS of 58, given 1amp D50 by primary RN. Per staff, pt starting having runs of VTACH. Upon assessing pt, pt was found to be without pulses. RADHA HOANG called. Pt admitted to ICU on 02/03/25 following cardiac arrest. Pt arrived to ER on 02/02/25 with CPR being performed. Initial Information Date: Feb 04, 2025 Time: 01:34 Location of Arrest: ICU ([facility]) Arrest Witnessed: Yes CPR started initial time: 03:14 CPR started by whom: Hospital Staff Pre-Hospital Care: Pre-Code Care (inpatient) Type of arrest: Cardiac, Adult, Witnessed Spontaneous Respirations: No Pulse Present: No Monitoring: ECG, Pulse Oximetry, Telemetry Crash Cart Opened and Supplies: Yes Airway Ventilation Breathing at Onset: Assisted Oxygen Delivery Method: Mechanical Ventilator Time of first Assisted Ventila: 03:14 Artificial Ventilation: Bag/Endo tube Intubation Size: 7.0 cuffed Intubated orally: Yes Intubated Nasaly: No Tube secured at: 25 (cm @ lip) Comments: Pt was intubated on 02/02/25 by deputy juvenile officer prior to arrival as secure code ellis on 02/02/25. Circulation Circulation #1: Time: 01:34 Pulse Rate (adult): 0 Blood Pressure Systolic: 0 Blood Pressure Diastolic: 0 Temperature (Fahrenheit): 99.1 (F; rectal) Circulation Comment: PVTach Circulation #2: Time: 01:36 Pulse Rate (adult): 0 Blood Pressure Systolic: 0 Blood Pressure Diastolic: 0 Circulation Comment: VFib 165 Circulation #3: Time: 01:38 Pulse Rate (adult): 0 Blood Pressure Systolic: 0 Blood Pressure Diastolic: 0 Circulation Comment: PVTach; shock not advised per Zoll, compression resumed Circulation #4: Time: 01:40 Pulse Rate (adult): 0 Blood Pressure Systolic: 0 Blood Pressure Diastolic: 0 Circulation Comment: PEA Circulation #5: Time: 01:42 Pulse Rate (adult): 88 Blood Pressure Systolic: 195 Blood Pressure Diastolic: 85 Circulation Comment: ROSC Defibrillation Defbrillation : Time Defibrillator Applied: 01:36 EKG Rhythm: V-Fibrillation (165) Compressions: Manual Time Defibrillator Shocked Pt.: 01:36 Defib. Joules: 120 Pulse Present: No Medications & Response Medications and Responses #1: Medication Time: 01:35 ADULT Medications Given ADULT: Epinephrine 1 mg Route of Administration: IV Heart Rate: 0 Blood Pressure Systolic: 0 Blood Pressure Diastolic: 0 Respiratory Rate: 0 Medications and Responses #2: Medication Time: 01:39 ADULT Medications Given ADULT: Epinephrine 1 mg Route of Administration: IV Heart Rate: 0 Blood Pressure Systolic: 0 Blood Pressure Diastolic: 0 Respiratory Rate: 0 Medications and Responses #3: Medication Time: 01:40 ADULT Medications Given ADULT: Magnesium Sulfate 1 gm Route of Administration: IV Heart Rate: 0 Blood Pressure Systolic: 0 Blood Pressure Diastolic: 0 Respiratory Rate: 0 Medications and Responses #4: Medication Time: 01:41 ADULT Medications Given ADULT: Sodium Bacarbinate 50 meq Route of Administration: IV Heart Rate: 0 Blood Pressure Systolic: 0 Blood Pressure Diastolic: 0 Respiratory Rate: 0 Procedure - Central Venous Cat Central venous catheter site: Rt Femoral Comment: Inserted during prior code Procedure - Cancino Catheter Urinary Catheter Type/Location: Uretheral (Cancino) Urine Color: Straw, Light Olya Cancino Catheter Secured: Yes Comment: Inserted during prior code Nurses Notes Johnson Coma Scale Eye Opening: None (1) Johnson Coma Scale Verbal: None (1) [place] Coma Scale Motor: None (1) Gl[place]ow Total: 3 Pupil Reaction: Sluggish (4 mm), Non Reactive Bedside Blood Glucose: 127 EKG Rhythm: Sinus Rhythm (SR with PVCs; HR 96 @ 0145) Time Code Ended Time Code Ended: 01:42 Post Arrest Status: Ventilated Outcome of code: Successful Family notified: Yes (Family present at bedside) Code Team Present: TRACI Sousa - Hospitalist; Dr. Pope - Resident; Missy Rosado RN - ICU Charge; Judy Major RN - Hand Cutter Apprentice; Christi Turner RN - Primary RN; Racquel Godoy, RT; Sydnie Brandon RN; Lilly Oropeza RN; Rafita Khan RN; Bria Godoy, CCT; Jaz Oropeza, CCT Post Resuscitation Neurologica Pupil Size: 4 ROSC Time of ROSC: 01:42 Judy [place] Feb 04, 2025 02:19
[2025-02-04 02:29] LABS: Anion Gap 15 (5-15); BUN/Creatinine Ratio 16.7 (10.0-20.0); Carbon Dioxide 25 mmol/L (20-31); Chloride 105 mmol/L (98-107); Potassium 3.9 mmol/L (3.5-5.1)
[2025-02-04 02:53] LABS: Alanine Aminotransferase 1192 U/L (7-40); Albumin 2.8 g/dL (3.2-4.8); Alkaline Phosphatase 131 U/L (46-116); Bilirubin, Total 1.3 mg/dL (0.2-1.0); Blood Urea Nitrogen 44 mg/dL (9-23); Calcium 6.9 mg/dL (8.7-10.4); Glucose 214 mg/dL (74-106); Magnesium 3.4 mg/dL (1.6-2.6); Sodium 145 mmol/L (136-145); Total Protein 5.0 g/dL (5.7-8.2)
[2025-02-04 03:44] LABS: INR 1.73 (0.9-1.15); Partial Thromboplastin Time 50.8 SEC (24.5-34.5); Prothrombin Time 17.4 sec (9.3-11.8)
--- NOTE | 2025-02-04 04:32 | DVH ---
EXAM: XY CHEST PORTABLE HISTORY: resp failure/ s/p cpr COMPARISON: XY CHEST XRAY 1 VIEW on DOS: 02/03/25, XY CHEST PORTABLE on DOS: 02/02/25 TECHNIQUE: Portable AP view of the chest was performed with apical lordotic angulation. FINDINGS: Endotracheal tube is identified with its tip 8 mm above the anuj. OG tube is identified with its ti p distal to the GE junction. There is central interstitial prominence. No pneumothorax or consolidati ve infiltrates. The heart is not enlarged. IMPRESSION: 1. Endotracheal tube tip is 8 mm above the anuj and should be pulled back 2 cm followed by repeat c hest x-ray. 2. Central interstitial prominence may be due to reactive airways disease or mild CHF.
--- NOTE | 2025-02-04 05:43 | DVH ---
EXAM: XY CHEST XRAY 1 VIEW Indication: on vent Technique: Single frontal view of the chest was obtained Comparison: XY CHEST XRAY 1 VIEW on DOS: 02/03/25, XY CHEST PORTABLE on DOS: 02/02/25XY CHEST XRAY 1 EW on DOS: 02/03/25, XY CHEST PORTABLE on DOS: 02/02/25 FINDINGS: Lines and Tubes: Endotracheal tube 1.4 cm above the anuj recommend withdrawal 2-3 cm. AED pads over the chest. Enteric tube projects over expected region of the stomach. Lungs: No focal consolidation. Pleura: No effusion. No pneumothorax. Cardiomediastinal contours: Unremarkable Bones: No acute osseous abnormality. IMPRESSION: No significant change compared to prior exam.
[2025-02-04] MEDS: BUMETANIDE 2.5mg/10ml (0.25 mg/ml) INJ IV SCH (05:56)
[2025-02-04 07:08] LABS: Base Excess 0.7 mmol/L (-2.0-3.0)
--- NOTE | 2025-02-04 09:08 | DVH ---
CHEST RADIOGRAPH Indication: reposition EET Technique: Single frontal view of the chest was obtained COMPARISON: XY CHEST XRAY 1 VIEW on DOS: 02/04/25, XY CHEST PORTABLE on DOS: 02/04/25, XY CHEST XRAY 1 VIEW on DOS: 02/03/25, XY CHEST PORTABLE on DOS: 02/02/25 FINDINGS: Lines and Tubes: Endotracheal tube and enteric catheter in satisfactory position. Lungs: Mild congestion Pleura: No effusion. No pneumothorax. Cardiomediastinal contours: Unremarkable Bones: Unremarkable IMPRESSION: Lines and tubes in satisfactory position. No significant interval change.
[2025-02-04] MEDS: cefTRIAXone 1GM/50ML D5W 50 ML IV SCH (09:28)
--- NOTE | 2025-02-04 09:43 | DVHPN2 ---
Subjective Patient is a 54-year-old female with a medical history of substance use currently reported to be on methadone was brought to the hospital by EMS after she was found unresponsive at home. As per the records from the ER physician, patient was found by her partner lying unresponsive. Unknown downtime. Call receive at 9:53 p.m., and arrived on scene at 10:07 p.m. were bystander CPR was being done. Patient is still unresponsive, pulseless, asystole. CPR initiated, intubated, placed on autopulse, IV fluids given and epinephrine x 3 given. Patient remained asystole until their arrival at the ER at 10:18 p.m. CPR continued of the ER, able to obtain ROSC at 10:25 p.m. Blood sugar on scene was 129. On arrival patient's pupils were fixed and dilated, intermittent breath sounds with the ventilator with cool and mottled feet. Twelve lead ECG reveals a junctional rhythm with a RBBB, interventricular conduction delay, prolonged QTC interval. Troponin levels initially were 316 [place] [address]. Patient had anion gap metabolic acidosis with lactic acid of 13.2 with a low potassium level of 2.4. Medical history: substance use Surgical history: Unknown Social history: As per the daughter patient was recently evicted from her apartment and has been living with her partner Home medications: As per family follows at methadone clinic Review of systems Patient seen and examined at the bedside. No response to verbal commands. Urine output 100 mL over the day. Reviewed: Care Plan Changes from previous H/P or p: No Changes General: Per HPI Eyes: No Pain, No Vision change, No Conjunctivae inflammation, No Eyelid inflammation, No Other, No Redness ENT: No Ear pain, No Ear discharge, No Nose pain, No Nose discharge, No Nose congestion, No Mouth pain, No Mouth swelling, No Throat pain, No Throat swelling, No Other Cardiovascular: No Chest Pain, No Palpitations, No Orthopnea, No Paroxysmal Noc. Dyspnea, No Edema, No Lt Headedness; Other (Cardiac arrest) Respiratory: No Cough, No Dry, No Shortness of breath, No SOB with excertion, No Wheezing, No Hemoptysis, No Pleuritic Pain, No Sputum, No Other Gastrointestinal: No Nausea, No Vomiting, No Abdominal Pain, No Diarrhea, No Constipation, No Melena, No Hematochezia, No Other Genitourinary: No Dysuria, No Frequency, No Incontinence, No Hematuria, No Retention; Other (Cancino catheter in place) Musculoskeletal: No other, No neck pain, No shoulder pain, No arm pain, No back pain, No hand pain, No leg pain, No foot pain Skin: No Rash, No Lesions, No Jaundice, No Bruising, No Other Objective Vitals Vital Signs Date Time Temp Pulse Resp B/P (MAP) Pulse Ox O2 Delivery O2 Flow Rate FiO2 02/04/25 08:00 92 28 123/78 (93) 100 30 02/04/25 06:15 99.5 211.1 02/04/25 06:00 Mechanical Ventilator+ Intake/Output Intake and Output 02/04/25 07:00 Intake Total 2953.512 ml Output Total 700 ml Balance 2253.512 ml Intake Oral 0 ml IV Total 2953.512 ml Output Urine Total 700 ml # Bowel Movements 1 Exam Gen - no pallor, no icterus, no edema . Skin - Patients skin is warm and dry. HEENT - normocephalic, atraumatic, dry mucous membranes. Neck - no JVD Pulmonary - B/L equal air entry with bilateral coarse sounds, no wheezing, no stridor. cardiovascular - regular S1,S2 heard, no added sounds, no murmurs heard. peripheral pulses normal radial 2+, pedal 2+. capillary refill normal >4 secs. GI - soft, slightly distended abdomen. Bowel sounds hypoactive Neurological - patient is on mechanical ventilation, no sedation, pupils dilated and fixed, no response to pain, absent gag reflex Medications Current Medications Medications Dose Ordered Sig/Abelardo Route Start Time Stop Time Status Last Admin Dose Admin Midazolam HCl 50 ml @ 1 mls/hr Q24H IV 02/02/25 22:45 02/02/25 22:40 7 MLS/HR Fentanyl Citrate 250 ml @ 2.5 mls/hr Q24H IV 02/02/25 23:15 02/03/25 16:45 2.5 MLS/HR Propofol 100 ml @ 1.565 mls/ hr Q24H IV 02/03/25 02:00 02/03/25 02:00 1.565 MLS/HR Ceftriaxone Sodium 50 ml @ 100 mls/hr DAILY@09 IV 02/04/25 09:00 Vancomycin HCl 0 ml @ 0 mls/hr UD IV 02/03/25 03:00 Diagnostic Test (Pha) 1 strip Q6HR 02/03/25 06:00 02/04/25 05:35 1 STRIP Insulin Human Regular Q6HR SC 02/03/25 06:00 02/03/25 11:20 2 UNITS Dextrose 50 ml UD PRN IV 02/03/25 03:00 02/04/25 01:30 50 ML Dopamine HCl/ Dextrose 250 ml @ 9.781 mls/ hr Q24H IV 02/03/25 06:15 02/03/25 19:21 3.912 MLS/HR Vasopressin 20 units/Sodium Chloride 100 ml @ 9 mls/hr Q11H7M IV 02/03/25 06:15 02/04/25 02:03 9 MLS/HR Phenylephrine HCl 80 mg/Sodium Chloride 250 ml @ 7.5 mls/hr Q24H IV 02/03/25 08:00 02/03/25 15:38 29.063 MLS/HR Norepinephrine Bitartrate 32 mg/ Sodium Chloride 250 ml @ 0.938 mls/ hr Q24H IV 02/03/25 08:00 02/04/25 05:04 2.813 MLS/HR Epinephrine HCl 16 mg/Dextrose 250 ml @ 1.875 mls/ hr Q24H IV 02/03/25 08:00 02/03/25 09:11 9.375 MLS/HR Heparin Sodium/ Dextrose 250 ml @ 3 mls/hr Q24H IV 02/03/25 15:30 Mupirocin 1 applic BID EACHNOSTRI 02/03/25 22:00 02/08/25 21:59 02/03/25 22:20 1 APPLIC Bumetanide 2.5 mg BIDD IV 02/04/25 06:00 02/04/25 05:56 2.5 MG Laboratory Results Laboratory Tests 02/04/25 02:03 Chemistry Test 02/03/25 16:30 02/04/25 02:03 Calcium Level 7.2 mg/dL (8.7-10.4) L 6.9 mg/dL (8.7-10.4) L Albumin 2.8 g/dL (3.2-4.8) L Magnesium Level 3.4 mg/dL (1.6-2.6) H Phosphorus Level 4.9 mg/dL (2.4-5.1) Total Protein 5.0 g/dL (5.7-8.2) L Coagulation Test 02/03/25 13:07 02/03/25 21:20 02/04/25 03:20 Prothrombin Time 15.3 sec (9.3-11.8) H 16.1 sec (9.3-11.8) H 17.4 sec (9.3-11.8) H Prothrombin Time INR 1.50 (0.9-1.15) H 1.59 (0.9-1.15) H 1.73 (0.9-1.15) H Activated Partial Thromboplast Time 98.8 SEC (24.5-34.5) *H 54.1 SEC (24.5-34.5) H 50.8 SEC (24.5-34.5) H LFT Test 02/04/25 02:03 Alanine Aminotransferase (ALT) 1192 U/L (7-40) H Alkaline Phosphatase 131 U/L (46-116) H Aspartate Amino Transferase (AST) 4118 U/L (13-40) H Total Bilirubin 1.3 mg/dL (0.2-1.0) H Urinalysis Test 02/03/25 05:33 Urine Color Light-orange (Yellow) Urine Clarity Turbid (Clear) H Urine pH 6.0 (5.0-9.0) Urine Specific [place] 1.012 (1.001-1.035) Urine Protein 2+ (Negative) H Urine Ketones Negative (Negative) Urine Blood 3+ /uL (Negative) H Urine Nitrite Negative (Negative) Urine Bilirubin Negative (Negative) Urine Urobilinogen 2 mg/dL (Negative) H Urine Leukocyte Esterase Negative /uL (Negative) Urine RBC 18 /hpf (0 - 4) Urine Microscopic WBC 24 /HPF (0-5) H Urine Squamous Epithelial Cells Few /hpf (<5) Urine Amorphous Crystals Few /hpf (None Seen) Urine Bacteria None seen /hpf (None Seen) Urine Hyaline Casts Few /lpf (0 - 2) Urine Glucose 3+ mg/dL (Normal) H Blood Gas Results Test 02/03/25 10:00 02/04/25 02:00 02/04/25 06:57 Arterial Blood pH 7.255 (7.350-7.450) 7.426 (7.350-7.450) 7.469 (7.350-7.450) FiO2 % 30.0 30.0 30.0 Microbiology Microbiology Date/Time Source Procedure Growth Status 02/03/25 08:40 Nose MRSA Screen - Final Methicillin Resistant S.aureus Complete 02/02/25 22:56 Blood Blood Culture - Preliminary NO GROWTH AFTER 24 HOURS OF INCUBATION. Resulted Labs and/or images reviewed: Labs reviewed by me, Image(s) reviewed by me Assessment/Plan Assessment/Plan 02/04: Patient is intubated sedated on 3 vasopressors now coming down for 5 she had another episode of CPR yesterday lasting about 8 minutes pulseless V-tach. Currently vasopressor Levophed for vasopressin 0.03 dopamine to, vital signs stable. ABG with some alkalosis settings at a.c./28/450/30%/5.0. We will alkalosis we will turn down the rate to 25. Urine output 700 cc over last 24 hours we will give her some more fluids, add hydrocortisone shock steroids, we will go bladder vanco/ceftriaxone increased to vanco/cefepime.. UA had multiple drugs some could be from the field. Likely source right now is urine. Patient family daughter and son are at bedside, they want to keep her full code, they were informed if patient codes again chances of return to any meaningful life we will be very poor. Poor prognosis currently. Neurology Acute metabolic encephalopathy status post cardiopulmonary arrest Agonal breathing No brainstem reflexes - on mechanical ventilation - head CT showed no acute intracranial abnormality Cardiovascular Cardiopulmonary arrest s/p ROSC NSTEMI likely type 1 Shock likely cardiogenic/septic - on vasopressor support with norepinephrine, vasopressin, phenylephrine - dopamine - on heparin drip - echocardiogram report pending Respiratory Bilateral pulmonary edema - on mechanical ventilation - peep 5, FiO2 30%, tidal volume 450, RR 28 - CXR shows B/L congestion - dose of Bumex 4 mg IV given Nephrology ZION on CKD likely due to VMN due to shock Anion gap metabolic acidosis Severe Hypokalemia - elevated lactic acid - total of 4 L of fluids given - urine output 100 mL - one dose of bumex given - potassium level at 2, total of 140 mEq potassium given, improved to 5.1 GI Shock liver Hypoalbuminemia - worsening transaminitis - monitor LFTs Infectious disease MRSA nares Possible pneumonia due to gram +/- bacteria Possible Septic shock - on vancomycin and ceftriaxone Right femoral CVC inserted on 02/02 Cancino's inserted on 02/02 Goals of care discussed with the patient daughter Cindy for over 27 minutes. She was explained that as the patient had an unknown time until she was found by her partner and then CPR was given for about 32 minutes after which ROSC was achieved, is highly likely that the patient has anoxic brain injury and on examination patient's pupils are dilated and fixed, no gag reflex. The family is aware and wants to continue the care. Code status: Do not resuscitate Critical care time spent excluding procedures: 59 mins Plan discussed with: Patient Date of Service: Feb 04, 2025 Billing Provider: GREGORIO CRUZ MD Common Visit Codes: [id number] CARE 30-74 MIN GREGORIO CRUZ MD Feb 04, 2025 09:43
[2025-02-04] MEDS: BUMETANIDE 2.5mg/10ml (0.25 mg/ml) INJ IV ONE (10:11)
[2025-02-04] MEDS: VANCOMYCIN 500mg/100mL 100 ML IV ONE (10:43)
[2025-02-04] MEDS: SODIUM CHLORIDE 0.9% 1,000 ML IV ONE (10:43)
[2025-02-04 11:08] LABS: INR 1.82 (0.9-1.15); Partial Thromboplastin Time 48.1 SEC (24.5-34.5); Prothrombin Time 18.2 sec (9.3-11.8)
[2025-02-04] MEDS: HEPARIN DRIP/D5W 100UNITS/ML 250 ML IV SCH (11:15)
--- NOTE | 2025-02-04 11:22 | CONS ---
Pharmacy Clinical Information: HEPARIN DRIP RATE INCREASED FROM 300 UNITS/HR TO 400 UNITS/HR PER APTT OF 48.1; CONFIRMED WITH RN IVY (PATIENT IS ON VERY LOW DOSE AND SENSITIVE TO HEPARIN) NEXT APTT DRAW SCHEDULED FOR 1730 PER RX PROTOCOL BONITA JENNINGS PHARMACIST Feb 04, 2025 11:22
--- NOTE | 2025-02-04 12:06 | DVHPN2 ---
Progress Note Date Seen: Feb 04, 2025 Medical Necessity Reason Pt with a Central, PICC or Fol: Yes The following are medically ne: Central Line, Cancino Catheter Subjective Patient reports: Other (Overnight events noted patient had code blue, son is bedside currently on multiple vasopressors) Review of Systems: Deferred Objective vital signs Vital Sign Date Time Temp Pulse Resp B/P (MAP) Pulse Ox O2 Delivery O2 Flow Rate FiO2 02/04/25 11:45 98.4 81 25 106/69 (81) 100 209.1 02/04/25 10:12 30 02/04/25 10:12 Mechanical Ventilator+ Total Intake and Output 02/03/25 02/03/25 02/04/25 15:00 23:00 07:00 Intake Total 2315.417 ml 438.995 ml 199.10 ml Output Total 250 ml 450 ml Balance 2315.417 ml 188.995 ml -250.90 ml medications Current Medications Medications Dose Ordered Sig/Abelardo Route Start Time Stop Time Status Last Admin Dose Admin Midazolam HCl 50 ml @ 1 mls/hr Q24H IV 02/02/25 22:45 02/02/25 22:40 7 MLS/HR Fentanyl Citrate 250 ml @ 2.5 mls/hr Q24H IV 02/02/25 23:15 02/03/25 16:45 2.5 MLS/HR Propofol 100 ml @ 1.565 mls/ hr Q24H IV 02/03/25 02:00 02/03/25 02:00 1.565 MLS/HR Vancomycin HCl 0 ml @ 0 mls/hr UD IV 02/03/25 03:00 Diagnostic Test (Pha) 1 strip Q6HR 02/03/25 06:00 02/04/25 05:35 1 STRIP Insulin Human Regular Q6HR SC 02/03/25 06:00 02/03/25 11:20 2 UNITS Dextrose 50 ml UD PRN IV 02/03/25 03:00 02/04/25 01:30 50 ML Dopamine HCl/ Dextrose 250 ml @ 9.781 mls/ hr Q24H IV 02/03/25 06:15 02/03/25 19:21 3.912 MLS/HR Vasopressin 20 units/Sodium Chloride 100 ml @ 9 mls/hr Q11H7M IV 02/03/25 06:15 02/04/25 02:03 9 MLS/HR Phenylephrine HCl 80 mg/Sodium Chloride 250 ml @ 7.5 mls/hr Q24H IV 02/03/25 08:00 02/03/25 15:38 29.063 MLS/HR Norepinephrine Bitartrate 32 mg/ Sodium Chloride 250 ml @ 0.938 mls/ hr Q24H IV 02/03/25 08:00 02/04/25 05:04 2.813 MLS/HR Epinephrine HCl 16 mg/Dextrose 250 ml @ 1.875 mls/ hr Q24H IV 02/03/25 08:00 02/03/25 09:11 9.375 MLS/HR Mupirocin 1 applic BID EACHNOSTRI 02/03/25 22:00 02/08/25 21:59 02/04/25 10:12 1 APPLIC Bumetanide 2.5 mg BIDD IV 02/04/25 06:00 02/04/25 05:56 2.5 MG Cefepime HCl 50 ml @ 12.5 mls/hr Q12H IV 02/04/25 11:00 Hydrocortisone Sodium Succinate 100 mg Q8HR IV 02/04/25 14:00 Heparin Sodium/ Dextrose 250 ml @ 4 mls/hr Q24H IV 02/04/25 11:30 02/04/25 11:15 4 MLS/HR Examination: GENERAL:Abnormal, LUNGS:Abnormal, MSK:Abnormal, NEURO:Abnormal laboratory and microbiology Laboratory Tests 02/04/25 02:03 Test 02/04/25 02:03 Range/Units Serum Glucose 214 H 74-106 mg/dL Microbiology Date/Time Source Procedure Growth Status 02/03/25 08:40 Nose MRSA Screen - Final Methicillin Resistant S.aureus Complete 02/03/25 05:33 Urine - Cancino Port Urine Culture - Preliminary Resulted 02/02/25 22:56 Blood Blood Culture - Preliminary NO GROWTH AFTER 24 HOURS OF INCUBATION. Resulted 02/02/25 22:45 Sputum Gram Stain Pending Resulted 02/02/25 22:45 Sputum Respiratory Culture - Preliminary Resulted Problem List/Assessment/Plan Problem List/Assessment/Plan Acute kidney injury likely in the setting of shock acute kidney injury likely ATN in the setting Of shock polysubstance abuse suspected drug overdose Cardiac arrest status post CPR Ventilator-dependent hypoxic respiratory failure Shock Lactic acidosis Hypokalemia Recommendations Bumex IV as ordered Code blue last night Nonoliguric now And monitor renal function closely Strict Is&Os Discussed with son Discussed with ICU team RN Grave prognosis Consider comfort care Plan discussed with: Son, Other My Orders My Orders Orders - ALLISON LOPEZ MD Procedure Category Date Status Time Bumetanide Injection PHA 02/04/25 In Process (Bumex Injection) 06:00 Dietary Evaluation Review Comments: Nutrition Recommendation: 1) TF Jevity 1.2Cal @ 50ml/hr x 24hr (goal) along with Pro-stat 1 pk daily. Start @ 20ml/hr, increase 10ml/hr Q4H until goal is reached. TF @ goal volume along with Pro-Stat provide 1540 kcal (100% energy needs), 82 gm protein (100% protein needs), 968 ml free water. 2) Water flush 100ml Q4H if allowed, adjust PRN 3) TPN if NPO >7 days 4) Monitor NPO status, lab values, wt trend, I/O Expected Outcomes/Goals: Lab values to improve Fu 2-3 days Critical Care Time (mins): 36 ALLISON LOPEZ MD Feb 04, 2025 12:06
[2025-02-04] MEDS: CEFEPIME 1GM/ 50ML 50 ML IV SCH (12:08)
--- NOTE | 2025-02-04 12:46 | DVHPN2 ---
Progress Note - Dictate Date Seen: Feb 04, 2025 Medical Necessity Reason Pt with a Central, PICC or Fol: Yes The following are medically ne: Central Line, Cancino Catheter vital signs Vital Sign Date Time Temp Pulse Resp B/P (MAP) Pulse Ox O2 Delivery O2 Flow Rate FiO2 02/04/25 12:00 81 25 101/69 (80) 100 30 02/04/25 11:45 98.4 209.1 02/04/25 10:12 Mechanical Ventilator+ Total Intake and Output 02/03/25 02/03/25 02/04/25 15:00 23:00 07:00 Intake Total 2315.417 ml 438.995 ml 199.10 ml Output Total 250 ml 450 ml Balance 2315.417 ml 188.995 ml -250.90 ml medications Current Medications Medications Dose Ordered Sig/Abelardo Route Start Time Stop Time Status Last Admin Dose Admin Midazolam HCl 50 ml @ 1 mls/hr Q24H IV 02/02/25 22:45 02/02/25 22:40 7 MLS/HR Fentanyl Citrate 250 ml @ 2.5 mls/hr Q24H IV 02/02/25 23:15 02/03/25 16:45 2.5 MLS/HR Propofol 100 ml @ 1.565 mls/ hr Q24H IV 02/03/25 02:00 02/03/25 02:00 1.565 MLS/HR Vancomycin HCl 0 ml @ 0 mls/hr UD IV 02/03/25 03:00 Diagnostic Test (Pha) 1 strip Q6HR 02/03/25 06:00 02/04/25 05:35 1 STRIP Insulin Human Regular Q6HR SC 02/03/25 06:00 02/03/25 11:20 2 UNITS Dextrose 50 ml UD PRN IV 02/03/25 03:00 02/04/25 01:30 50 ML Dopamine HCl/ Dextrose 250 ml @ 9.781 mls/ hr Q24H IV 02/03/25 06:15 02/03/25 19:21 3.912 MLS/HR Vasopressin 20 units/Sodium Chloride 100 ml @ 9 mls/hr Q11H7M IV 02/03/25 06:15 02/04/25 02:03 9 MLS/HR Phenylephrine HCl 80 mg/Sodium Chloride 250 ml @ 7.5 mls/hr Q24H IV 02/03/25 08:00 02/03/25 15:38 29.063 MLS/HR Norepinephrine Bitartrate 32 mg/ Sodium Chloride 250 ml @ 0.938 mls/ hr Q24H IV 02/03/25 08:00 02/04/25 05:04 2.813 MLS/HR Epinephrine HCl 16 mg/Dextrose 250 ml @ 1.875 mls/ hr Q24H IV 02/03/25 08:00 02/03/25 09:11 9.375 MLS/HR Mupirocin 1 applic BID EACHNOSTRI 02/03/25 22:00 02/08/25 21:59 02/04/25 10:12 1 APPLIC Bumetanide 2.5 mg BIDD IV 02/04/25 06:00 02/04/25 05:56 2.5 MG Cefepime HCl 50 ml @ 12.5 mls/hr Q12H IV 02/04/25 11:00 Hydrocortisone Sodium Succinate 100 mg Q8HR IV 02/04/25 14:00 Heparin Sodium/ Dextrose 250 ml @ 4 mls/hr Q24H IV 02/04/25 11:30 02/04/25 11:15 4 MLS/HR laboratory and microbiology Laboratory Tests 02/04/25 02:03 Test 02/04/25 02:03 Range/Units Serum Glucose 214 H 74-106 mg/dL Assessment/Plan ICU rounds 54-year-old lady status post cardiac arrest Requiring CPR Downtime unknown Cardiogenic shock Acute hypoxemic has been story failure Multiorgan failure Patient was seen and examined in the ICU Currently on three pressors Hemodynamics unstable Labs reviewed BUN and creatinine elevated ABG PH 7.47 pCO2 33 PO2 108 on AC volume control PEEP five FiO2 30% Chest x-ray hardware placed corrected Congestion Management Plan Continue pressors Keep NY be above 65 Echo report noted MILD LVH AND MILD LV DIASTOLIC DYSFUCTION LV EF 50% DYSKINESIS OF IVS MODERATELY DILATED RV MODERATE DEGREE PULMONARY HYPERTENSION RVSP IS 46 MM OF HG AND IS MODERATELY HIGH MODERATELY DILATED LA NORMAL VALVES NO EFFUSION Stress dose steroids Empiric antibiotics Bronchodilators GI and DVT prophylaxis Prognosis very poor Critical care time 35 minutes Continue antibiotics Dietary Evaluation Review Comments: Nutrition Recommendation: 1) TF Jevity 1.2Cal @ 50ml/hr x 24hr (goal) along with Pro-stat 1 pk daily. Start @ 20ml/hr, increase 10ml/hr Q4H until goal is reached. TF @ goal volume along with Pro-Stat provide 1540 kcal (100% energy needs), 82 gm protein (100% protein needs), 968 ml free water. 2) Water flush 100ml Q4H if allowed, adjust PRN 3) TPN if NPO >7 days 4) Monitor NPO status, lab values, wt trend, I/O Expected Outcomes/Goals: Lab values to improve Fu 2-3 days Plan discussed with: Other (rn) MIRTHA NAGEL MD Feb 04, 2025 12:46
[2025-02-04] MEDS: HYDROCORTISONE SOD SUCC 100 MG/2ML INJ VIAL IV SCH (14:10)
[2025-02-04 16:29] LABS: Base Excess 2.1 mmol/L (-2.0-3.0)
[2025-02-04 19:48] LABS: INR 1.86 (0.9-1.15); Partial Thromboplastin Time 54.2 SEC (24.5-34.5); Prothrombin Time 18.5 sec (9.3-11.8)
[2025-02-04 23:21] LABS: Potassium 4.9 mmol/L (3.5-5.1)
[2025-02-04 23:26] LABS: Calcium 6.8 mg/dL (8.7-10.4)
[2025-02-04 23:29] LABS: Magnesium 2.7 mg/dL (1.6-2.6)
--- NOTE | 2025-02-04 23:50 | DVHPN2 ---
Progress Note - Dictate Date Seen: Feb 04, 2025 Medical Necessity Reason Pt with a Central, PICC or Fol: Yes The following are medically ne: Central Line, Cancino Catheter Subjective Patient was seen and evaluated in follow up in the ICU. Patient is intubated and sedated on ventilator. 30% FiO2. Patient receiving vasopressors and heparin drip. WBC 17.5. Blood cultures are positive for gram negative rods. Chest x-ray shows mild congestion. vital signs Vital Sign Date Time Temp Pulse Resp B/P (MAP) Pulse Ox O2 Delivery O2 Flow Rate FiO2 02/04/25 20:00 74 25 98/57 (71) 100 30 02/04/25 19:15 98.4 209.1 02/04/25 18:15 Mechanical Ventilator+ Total Intake and Output 02/03/25 02/03/25 02/04/25 15:00 23:00 07:00 Intake Total 2315.417 ml 438.995 ml 219.37 ml Output Total 250 ml 450 ml Balance 2315.417 ml 188.995 ml -230.63 ml medications Current Medications Medications Dose Ordered Sig/Abelardo Route Start Time Stop Time Status Last Admin Dose Admin Midazolam HCl 50 ml @ 1 mls/hr Q24H IV 02/02/25 22:45 02/02/25 22:40 7 MLS/HR Fentanyl Citrate 250 ml @ 2.5 mls/hr Q24H IV 02/02/25 23:15 02/03/25 16:45 2.5 MLS/HR Propofol 100 ml @ 1.565 mls/ hr Q24H IV 02/03/25 02:00 02/03/25 02:00 1.565 MLS/HR Vancomycin HCl 0 ml @ 0 mls/hr UD IV 02/03/25 03:00 Diagnostic Test (Pha) 1 strip Q6HR 02/03/25 06:00 02/04/25 18:13 1 STRIP Insulin Human Regular Q6HR SC 02/03/25 06:00 02/03/25 11:20 2 UNITS Dextrose 50 ml UD PRN IV 02/03/25 03:00 02/04/25 18:15 50 ML Dopamine HCl/ Dextrose 250 ml @ 9.781 mls/ hr Q24H IV 02/03/25 06:15 02/03/25 19:21 3.912 MLS/HR Vasopressin 20 units/Sodium Chloride 100 ml @ 9 mls/hr Q11H7M IV 02/03/25 06:15 02/04/25 12:47 9 MLS/HR Phenylephrine HCl 80 mg/Sodium Chloride 250 ml @ 7.5 mls/hr Q24H IV 02/03/25 08:00 02/03/25 15:38 29.063 MLS/HR Norepinephrine Bitartrate 32 mg/ Sodium Chloride 250 ml @ 0.938 mls/ hr Q24H IV 02/03/25 08:00 02/04/25 05:04 2.813 MLS/HR Epinephrine HCl 16 mg/Dextrose 250 ml @ 1.875 mls/ hr Q24H IV 02/03/25 08:00 02/03/25 09:11 9.375 MLS/HR Mupirocin 1 applic BID EACHNOSTRI 02/03/25 22:00 02/08/25 21:59 02/04/25 10:12 1 APPLIC Bumetanide 2.5 mg BIDD IV 02/04/25 06:00 02/04/25 17:59 2.5 MG Cefepime HCl 50 ml @ 12.5 mls/hr Q12H IV 02/04/25 11:00 02/04/25 12:08 12.5 MLS/HR Hydrocortisone Sodium Succinate 100 mg Q8HR IV 02/04/25 14:00 02/04/25 14:10 100 MG Heparin Sodium/ Dextrose 250 ml @ 4 mls/hr Q24H IV 02/04/25 11:30 02/04/25 11:15 4 MLS/HR objective GENERAL: Ill appearing, intubated on ventilator. EYES: PERRL, EOMI. Anicteric. HENT: Moist mucous membranes. LUNGS: Decreased breath sounds. CARDIOVASCULAR: Irregular rate and rhythm. ABDOMEN: Soft, nontender and nondistended. EXTREMITIES: Trace edema. SKIN: Bilateral feet are mottled. laboratory and microbiology Laboratory Tests 02/04/25 02:03 Test 02/04/25 02:03 Range/Units Serum Glucose 214 H 74-106 mg/dL Problem List Cardiopulmonary arrest s/p CPR with return of spontaneous circulation. NSTEMI. Rule out structural heart disease. Prolonged QTc interval. Septic shock. Hypokalemia. Acute kidney injury. Transaminitis. Polysubstance abuse. Assessment/Plan Continued all current supportive medical care. Diuretics with Bumex. IV antibiotics as ordered. Dopamine drip. Heparin drip per pharmacy. Vasopressors for hemodynamic support. Additional plan as per the hospital course. Critical care time of 45 minutes provided to include time spent evaluation of patient at bedside, when appropriate patient/family education for diagnosis, treatment plan, review of pertinent medical information and discussion of care with specialty providers and PCP. Mechanical ventilator parameters, treatment and adjustments have personally been reviewed by me and treatment plan by board certified orthodontist has also been reviewed. Dietary Evaluation Review Comments: Nutrition Recommendation: 1) TF Jevity 1.2Cal @ 50ml/hr x 24hr (goal) along with Pro-stat 1 pk daily. Start @ 20ml/hr, increase 10ml/hr Q4H until goal is reached. TF @ goal volume along with Pro-Stat provide 1540 kcal (100% energy needs), 82 gm protein (100% protein needs), 968 ml free water. 2) Water flush 100ml Q4H if allowed, adjust PRN 3) TPN if NPO >7 days 4) Monitor NPO status, lab values, wt trend, I/O Expected Outcomes/Goals: Lab values to improve Fu 2-3 days Plan discussed with: Other SKYE GONZALES MD Feb 04, 2025 21:23
[2025-02-05] VITALS (112 sets, daily range): BP systolic 95–173; BP diastolic 56–115; PULSE 69–94; RESP 14–28; TEMP 95.7–99.9; O2SAT 91–100
[2025-02-05 01:33] LABS: INR 1.59 (0.9-1.15); Partial Thromboplastin Time 61.9 SEC (24.5-34.5); Prothrombin Time 16.1 sec (9.3-11.8)
[2025-02-05 03:42] LABS: Hematocrit 38.1 % (36.0-46.0); Hemoglobin 12.9 g/dL (12.2-16.2); Mean Corpuscular Hemoglobin 29.0 pg (28.0-32.0); Mean Corpuscular Volume 85.8 fL (80.0-100.0); Nucleated Red Blood Cells % 0.1 %
[2025-02-05 03:59] LABS: Anion Gap 13 (5-15); BUN/Creatinine Ratio 18.7 (10.0-20.0); Bilirubin, Total 0.7 mg/dL (0.2-1.0); Carbon Dioxide 28 mmol/L (20-31); Chloride 103 mmol/L (98-107); Glucose 82 mg/dL (74-106); Potassium 4.9 mmol/L (3.5-5.1); Sodium 144 mmol/L (136-145)
[2025-02-05 04:34] LABS: Blood Urea Nitrogen 68 mg/dL (9-23)
[2025-02-05 04:35] LABS: Alanine Aminotransferase 519 U/L (7-40); Albumin 2.9 g/dL (3.2-4.8); Alkaline Phosphatase 128 U/L (46-116); Calcium 6.9 mg/dL (8.7-10.4); Total Protein 5.1 g/dL (5.7-8.2)
--- NOTE | 2025-02-05 06:56 | DVH ---
CHEST RADIOGRAPH Indication: pna Technique: Single frontal view of the chest was obtained COMPARISON: XY CHEST PORTABLE on DOS: 02/04/25, XY CHEST PORTABLE on DOS: 02/04/25, XY CHEST XRAY 1 VIE W on DOS: 02/04/25, XY CHEST XRAY 1 VIEW on DOS: 02/03/25, XY CHEST PORTABLE on DOS: 02/02/25 FINDINGS: Lines and Tubes: Unchanged. Lungs: Clear Pleura: No effusion. No pneumothorax. Cardiomediastinal contours: Unremarkable Bones: Unremarkable IMPRESSION: 1. No acute disease. 2. Lines and tubes unchanged.
[2025-02-05 07:09] LABS: Base Excess 2.0 mmol/L (-2.0-3.0)
[2025-02-05 09:56] LABS: INR 1.38 (0.9-1.15); Partial Thromboplastin Time 44.5 SEC (24.5-34.5); Prothrombin Time 14.2 sec (9.3-11.8)
[2025-02-05] MEDS: BUMETANIDE INJECTION 25 MG in GIVE UN-DILUTED 0 ML IV SCH (10:03)
--- NOTE | 2025-02-05 10:22 | DVHPN2 ---
Subjective Patient is a 54-year-old female with a medical history of substance use currently reported to be on methadone was brought to the hospital by EMS after she was found unresponsive at home. As per the records from the ER physician, patient was found by her partner lying unresponsive. Unknown downtime. Call receive at 9:53 p.m., and arrived on scene at 10:07 p.m. were bystander CPR was being done. Patient is still unresponsive, pulseless, asystole. CPR initiated, intubated, placed on autopulse, IV fluids given and epinephrine x 3 given. Patient remained asystole until their arrival at the ER at 10:18 p.m. CPR continued of the ER, able to obtain ROSC at 10:25 p.m. Blood sugar on scene was 129. On arrival patient's pupils were fixed and dilated, intermittent breath sounds with the ventilator with cool and mottled feet. Twelve lead ECG reveals a junctional rhythm with a RBBB, interventricular conduction delay, prolonged QTC interval. Troponin levels initially were 316 [place] [id number]. Patient had anion gap metabolic acidosis with lactic acid of 13.2 with a low potassium level of 2.4. Medical history: substance use Surgical history: Unknown Social history: As per the daughter patient was recently evicted from her apartment and has been living with her partner Home medications: As per family follows at methadone clinic Review of systems Patient seen and examined at the bedside. No response to verbal commands. Urine output 100 mL over the day. 02/04: Patient is intubated sedated on 3 vasopressors now coming down for 5 she had another episode of CPR yesterday lasting about 8 minutes pulseless V-tach. Currently vasopressor Levophed for vasopressin 0.03 dopamine to, vital signs stable. ABG with some alkalosis settings at a.c./28/450/30%/5.0. We will alkalosis we will turn down the rate to 25. Urine output 700 cc over last 24 hours we will give her some more fluids, add hydrocortisone shock steroids, we will go bladder vanco/ceftriaxone increased to vanco/cefepime.. UA had multiple drugs some could be from the field. Likely source right now is urine. Patient family daughter and son are at bedside, they want to keep her full code, they were informed if patient codes again chances of return to any meaningful life we will be very poor. Poor prognosis currently. 02/05-no further codes overnight. Levo is weaned off. Vital signs stable. Current drips include Bumex 1, heparin, vasopressin, dopamine to urine output is low. Mechanically ventilated good air movement in all lung salas ventilator settings a.c. 25/450/30%/5.0. Abdomen is soft. We will hold off NG feeds as organ dysfunction numbers continue rise. Likely from the shock. Shock liver, shock kidney. Nephrology is onboard is trying Bumex. On exam patient looks euvolemic no rales no pitting edema.- we will give slow fluids with Bumex drip. We will insert PICC line for further access points IV. Reviewed: Care Plan Changes from previous H/P or p: No Changes General: Per HPI Eyes: No Pain, No Vision change, No Conjunctivae inflammation, No Eyelid inflammation, No Other, No Redness ENT: No Ear pain, No Ear discharge, No Nose pain, No Nose discharge, No Nose congestion, No Mouth pain, No Mouth swelling, No Throat pain, No Throat swelling, No Other Cardiovascular: No Chest Pain, No Palpitations, No Orthopnea, No Paroxysmal Noc. Dyspnea, No Edema, No Lt Headedness; Other (Cardiac arrest) Respiratory: No Cough, No Dry, No Shortness of breath, No SOB with excertion, No Wheezing, No Hemoptysis, No Pleuritic Pain, No Sputum, No Other Gastrointestinal: No Nausea, No Vomiting, No Abdominal Pain, No Diarrhea, No Constipation, No Melena, No Hematochezia, No Other Genitourinary: No Dysuria, No Frequency, No Incontinence, No Hematuria, No Retention; Other (Cancino catheter in place) Musculoskeletal: No other, No neck pain, No shoulder pain, No arm pain, No back pain, No hand pain, No leg pain, No foot pain Skin: No Rash, No Lesions, No Jaundice, No Bruising, No Other Objective Vitals Vital Signs Date Time Temp Pulse Resp B/P (MAP) Pulse Ox O2 Delivery O2 Flow Rate FiO2 02/05/25 10:03 117/75 02/05/25 09:24 79 25 96 30 02/05/25 09:15 97.5 207.5 02/05/25 08:00 Mechanical Ventilator+ Intake/Output Intake and Output 02/05/25 07:00 Intake Total 1655.17 ml Output Total 450 ml Balance 1205.17 ml Intake Oral 0 ml IV Total 1655.17 ml Output Urine Total 450 ml Exam Gen - no pallor, no icterus, no edema . Skin - Patients skin is warm and dry. HEENT - normocephalic, atraumatic, dry mucous membranes. Neck - no JVD Pulmonary - B/L equal air entry with bilateral coarse sounds, no wheezing, no stridor. cardiovascular - regular S1,S2 heard, no added sounds, no murmurs heard. peripheral pulses normal radial 2+, pedal 2+. capillary refill normal >4 secs. GI - soft, slightly distended abdomen. Bowel sounds hypoactive Neurological - patient is on mechanical ventilation, no sedation, pupils dilated and fixed, no response to pain, absent gag reflex Medications Current Medications Medications Dose Ordered Sig/Abelardo Route Start Time Stop Time Status Last Admin Dose Admin Midazolam HCl 50 ml @ 1 mls/hr Q24H IV 02/02/25 22:45 02/02/25 22:40 7 MLS/HR Fentanyl Citrate 250 ml @ 2.5 mls/hr Q24H IV 02/02/25 23:15 02/03/25 16:45 2.5 MLS/HR Propofol 100 ml @ 1.565 mls/ hr Q24H IV 02/03/25 02:00 02/03/25 02:00 1.565 MLS/HR Vancomycin HCl 0 ml @ 0 mls/hr UD IV 02/03/25 03:00 Diagnostic Test (Pha) 1 strip Q6HR 02/03/25 06:00 02/05/25 06:08 1 STRIP Insulin Human Regular Q6HR SC 02/03/25 06:00 02/03/25 11:20 2 UNITS Dextrose 50 ml UD PRN IV 02/03/25 03:00 02/04/25 18:15 50 ML Dopamine HCl/ Dextrose 250 ml @ 9.781 mls/ hr Q24H IV 02/03/25 06:15 02/03/25 19:21 3.912 MLS/HR Vasopressin 20 units/Sodium Chloride 100 ml @ 9 mls/hr Q11H7M IV 02/03/25 06:15 02/05/25 09:15 9 MLS/HR Phenylephrine HCl 80 mg/Sodium Chloride 250 ml @ 7.5 mls/hr Q24H IV 02/03/25 08:00 02/03/25 15:38 29.063 MLS/HR Norepinephrine Bitartrate 32 mg/ Sodium Chloride 250 ml @ 0.938 mls/ hr Q24H IV 02/03/25 08:00 02/04/25 05:04 2.813 MLS/HR Epinephrine HCl 16 mg/Dextrose 250 ml @ 1.875 mls/ hr Q24H IV 02/03/25 08:00 02/03/25 09:11 9.375 MLS/HR Mupirocin 1 applic BID EACHNOSTRI 02/03/25 22:00 02/08/25 21:59 02/05/25 10:09 1 APPLIC Cefepime HCl 50 ml @ 12.5 mls/hr Q12H IV 02/04/25 11:00 02/04/25 23:55 12.5 MLS/HR Hydrocortisone Sodium Succinate 100 mg Q8HR IV 02/04/25 14:00 02/05/25 06:01 100 MG Heparin Sodium/ Dextrose 250 ml @ 4 mls/hr Q24H IV 02/04/25 11:30 02/04/25 11:15 4 MLS/HR Bumetanide 25 mg/ Miscellaneous 100 ml @ 4 mls/hr Q24H IV 02/05/25 07:45 02/05/25 10:03 4 MLS/HR Laboratory Results Laboratory Tests 02/05/25 02:58 Chemistry Test 02/04/25 23:00 02/05/25 02:58 Calcium Level 6.8 mg/dL (8.7-10.4) L 6.9 mg/dL (8.7-10.4) L Magnesium Level 2.7 mg/dL (1.6-2.6) H Albumin 2.9 g/dL (3.2-4.8) L Total Protein 5.1 g/dL (5.7-8.2) L Coagulation Test 02/04/25 19:07 02/05/25 00:58 02/05/25 09:15 Prothrombin Time 18.5 sec (9.3-11.8) H 16.1 sec (9.3-11.8) H Pending Prothrombin Time INR 1.86 (0.9-1.15) H 1.59 (0.9-1.15) H Pending Activated Partial Thromboplast Time 54.2 SEC (24.5-34.5) H 61.9 SEC (24.5-34.5) H Pending LFT Test 02/05/25 02:58 Alanine Aminotransferase (ALT) 519 U/L (7-40) H Alkaline Phosphatase 128 U/L (46-116) H Aspartate Amino Transferase (AST) 2197 U/L (13-40) H Total Bilirubin 0.7 mg/dL (0.2-1.0) Urinalysis Test 02/03/25 05:33 Urine Color Light-orange (Yellow) Urine Clarity Turbid (Clear) H Urine pH 6.0 (5.0-9.0) Urine Specific [place] 1.012 (1.001-1.035) Urine Protein 2+ (Negative) H Urine Ketones Negative (Negative) Urine Blood 3+ /uL (Negative) H Urine Nitrite Negative (Negative) Urine Bilirubin Negative (Negative) Urine Urobilinogen 2 mg/dL (Negative) H Urine Leukocyte Esterase Negative /uL (Negative) Urine RBC 18 /hpf (0 - 4) Urine Microscopic WBC 24 /HPF (0-5) H Urine Squamous Epithelial Cells Few /hpf (<5) Urine Amorphous Crystals Few /hpf (None Seen) Urine Bacteria None seen /hpf (None Seen) Urine Hyaline Casts Few /lpf (0 - 2) Urine Glucose 3+ mg/dL (Normal) H Blood Gas Results Test 02/04/25 16:20 02/05/25 06:51 Arterial Blood pH 7.476 (7.350-7.450) 7.547 (7.350-7.450) FiO2 % 30.0 30.0 Microbiology Microbiology Date/Time Source Procedure Growth Status 02/03/25 08:40 Nose MRSA Screen - Final Methicillin Resistant S.aureus Complete 02/03/25 05:33 Urine - Cancino Port Urine Culture - Preliminary Resulted 02/02/25 22:56 Blood Blood Culture - Preliminary Resulted 02/02/25 22:45 Sputum Gram Stain - Final Resulted 02/02/25 22:45 Sputum Respiratory Culture - Preliminary Resulted Labs and/or images reviewed: Labs reviewed by me, Image(s) reviewed by me Assessment/Plan Assessment/Plan Neurology Acute metabolic encephalopathy status post cardiopulmonary arrest Agonal breathing No brainstem reflexes - on mechanical ventilation - head CT showed no acute intracranial abnormality Cardiovascular Cardiopulmonary arrest s/p ROSC NSTEMI likely type 1 Shock likely cardiogenic/septic - on vasopressor support with norepinephrine, vasopressin, phenylephrine - dopamine - on heparin drip - echocardiogram report pending Respiratory Bilateral pulmonary edema - on mechanical ventilation - peep 5, FiO2 30%, tidal volume 450, RR 28 - CXR shows B/L congestion - dose of Bumex 4 mg IV given Nephrology ZION on CKD likely due to VMN due to shock Anion gap metabolic acidosis Severe Hypokalemia - elevated lactic acid - total of 4 L of fluids given - urine output 100 mL - one dose of bumex given - potassium level at 2, total of 140 mEq potassium given, improved to 5.1 GI Shock liver Hypoalbuminemia - worsening transaminitis - monitor LFTs Infectious disease MRSA nares Possible pneumonia due to gram +/- bacteria Possible Septic shock - on vancomycin and ceftriaxone Right femoral CVC inserted on 02/02 Cancino's inserted on 02/02 Goals of care discussed with the patient daughter Cindy for over 27 minutes. She was explained that as the patient had an unknown time until she was found by her partner and then CPR was given for about 32 minutes after which ROSC was achieved, is highly likely that the patient has anoxic brain injury and on examination patient's pupils are dilated and fixed, no gag reflex. The family is aware and wants to continue the care. Code status: Do not resuscitate Critical care time spent excluding procedures: 59 mins Plan discussed with: Patient My Orders Orders - GREGORIO CRUZ MD Procedure Category Date Status Time Abg W/ Co-Ox RT 02/04/25 Logged 16:00 Date of Service: Feb 05, 2025 Billing Provider: GREGORIO CRUZ MD Common Visit Codes: 08436-GAFSSWPT CARE 30-74 MIN GREGORIO CRUZ MD Feb 05, 2025 10:21
[2025-02-05] MEDS: HEPARIN DRIP/D5W 100UNITS/ML 250 ML IV SCH ×2 (10:49→20:45)
--- NOTE | 2025-02-05 10:57 | CONS ---
Pharmacy Clinical Information: Heparin drip update: APTT result of 44.5 received from 0915 draw. Please adjust heparin to 600 units per hour (6mL/hr) starting at 1100. Nurse Ilda adjusted rate at 1049. APTT/PT ordered for 1500 per PRx protocol. CHEVY PENA PHARMACIST Feb 05, 2025 10:57
--- NOTE | 2025-02-05 11:36 | DVHPN2 ---
Progress Note Date Seen: Feb 05, 2025 Medical Necessity Reason Pt with a Central, PICC or Fol: Yes The following are medically ne: Central Line, Cancino Catheter Subjective Patient reports: Other Objective vital signs Vital Sign Date Time Temp Pulse Resp B/P (MAP) Pulse Ox O2 Delivery O2 Flow Rate FiO2 02/05/25 10:03 117/75 02/05/25 09:24 79 25 96 30 02/05/25 09:15 97.5 207.5 02/05/25 08:00 Mechanical Ventilator+ Total Intake and Output 02/04/25 02/04/25 02/05/25 15:00 23:00 07:00 Intake Total 741.16 ml 769.81 ml 144.2 ml Output Total 450 ml Balance 741.16 ml 769.81 ml -305.8 ml medications Current Medications Medications Dose Ordered Sig/Abelardo Route Start Time Stop Time Status Last Admin Dose Admin Midazolam HCl 50 ml @ 1 mls/hr Q24H IV 02/02/25 22:45 02/02/25 22:40 7 MLS/HR Fentanyl Citrate 250 ml @ 2.5 mls/hr Q24H IV 02/02/25 23:15 02/03/25 16:45 2.5 MLS/HR Propofol 100 ml @ 1.565 mls/ hr Q24H IV 02/03/25 02:00 02/03/25 02:00 1.565 MLS/HR Vancomycin HCl 0 ml @ 0 mls/hr UD IV 02/03/25 03:00 Diagnostic Test (Pha) 1 strip Q6HR 02/03/25 06:00 02/05/25 06:08 1 STRIP Insulin Human Regular Q6HR SC 02/03/25 06:00 02/03/25 11:20 2 UNITS Dextrose 50 ml UD PRN IV 02/03/25 03:00 02/04/25 18:15 50 ML Dopamine HCl/ Dextrose 250 ml @ 9.781 mls/ hr Q24H IV 02/03/25 06:15 02/03/25 19:21 3.912 MLS/HR Vasopressin 20 units/Sodium Chloride 100 ml @ 9 mls/hr Q11H7M IV 02/03/25 06:15 02/05/25 09:15 9 MLS/HR Phenylephrine HCl 80 mg/Sodium Chloride 250 ml @ 7.5 mls/hr Q24H IV 02/03/25 08:00 02/03/25 15:38 29.063 MLS/HR Norepinephrine Bitartrate 32 mg/ Sodium Chloride 250 ml @ 0.938 mls/ hr Q24H IV 02/03/25 08:00 02/04/25 05:04 2.813 MLS/HR Epinephrine HCl 16 mg/Dextrose 250 ml @ 1.875 mls/ hr Q24H IV 02/03/25 08:00 02/03/25 09:11 9.375 MLS/HR Mupirocin 1 applic BID EACHNOSTRI 02/03/25 22:00 02/08/25 21:59 02/05/25 10:09 1 APPLIC Cefepime HCl 50 ml @ 12.5 mls/hr Q12H IV 02/04/25 11:00 02/05/25 10:45 12.5 MLS/HR Hydrocortisone Sodium Succinate 100 mg Q8HR IV 02/04/25 14:00 02/05/25 06:01 100 MG Bumetanide 25 mg/ Miscellaneous 100 ml @ 4 mls/hr Q24H IV 02/05/25 07:45 02/05/25 10:03 4 MLS/HR Heparin Sodium/ Dextrose 250 ml @ 6 mls/hr Q24H IV 02/05/25 10:45 02/05/25 10:49 6 MLS/HR Examination: GENERAL:Abnormal, HEENT:Abnormal, CVS:Normal, CVS:Abnormal laboratory and microbiology Laboratory Tests 02/05/25 02:58 Test 02/05/25 02:58 Range/Units Serum Glucose 82 74-106 mg/dL Microbiology Date/Time Source Procedure Growth Status 02/03/25 08:40 Nose MRSA Screen - Final Methicillin Resistant S.aureus Complete 02/03/25 05:33 Urine - C[place] Urine Culture - Preliminary Resulted 02/02/25 22:56 Blood Blood Culture - Preliminary Resulted 02/02/25 22:45 Sputum Gram Stain - Final Resulted 02/02/25 22:45 Sputum Respiratory Culture - Preliminary Resulted Problem List/Assessment/Plan Problem List/Assessment/Plan Acute kidney injury likely in the setting of shock acute kidney injury likely ATN in the setting Of shock polysubstance abuse suspected drug overdose Cardiac arrest status post CPR Ventilator-dependent hypoxic respiratory failure Shock Lactic acidosis Hypokalemia Recommendations Bumex drip as ordered ,hold iv pushes bumex And monitor renal function closely // not a candidate for BUNDLE HELPER custodial Strict Is&Os no gag or cough reflexes per RN Grave prognosis Consider comfort care Plan discussed with: Other My Orders My Orders Orders - ALLISON LOPEZ MD Procedure Category Date Status Time Give Un-Diluted PHA 02/05/25 In Process (Gi... W/Bumetanide 07:45 Dietary Evaluation Review Comments: Nutrition Recommendation: 1) TF Jevity 1.2Cal @ 50ml/hr x 24hr (goal) along with Pro-stat 1 pk daily. Start @ 20ml/hr, increase 10ml/hr Q4H until goal is reached. TF @ goal volume along with Pro-Stat provide 1540 kcal (100% energy needs), 82 gm protein (100% protein needs), 968 ml free water. 2) Water flush 100ml Q4H if allowed, adjust PRN 3) TPN if NPO >7 days 4) Monitor NPO status, lab values, wt trend, I/O Expected Outcomes/Goals: Lab values to improve Fu 2-3 days ALLISON LOPEZ MD Feb 05, 2025 11:36
[2025-02-05] MEDS ORDERED: CLINIMIX PER PHARMACY 0 ML IV SCH (11:45)
[2025-02-05] MEDS: SODIUM CHLORIDE 0.9% 1,000 ML IV ONE (12:04)
--- NOTE | 2025-02-05 12:26 | DVHINCON2 ---
Date of service: Feb 05, 2025 Referring Physician Rodolfo Reason for Consultation Unequal pupils, status post CPR History of Present Illness Mr. Isabel is a 54 years old right-handed female with a history of hepatitis- C, she was brought to the [facility] on 02/02/2025 with a chief complaint of cardiopulmonary arrest. At that time, she is intubated, nonresponsive to her surroundings, the history is obtained from her two daughters, and chart review. Apparently, the patient became nonresponsiveness, and her boyfriend called 911 around 9:53 p.m., and EMS arrived at 10:07pm, with ongoing CPR by her boyfriend. Arrived to the scene, the patient was nonresponsive, pulseless and a systolic, the patient is put on auto pulse, given epinephrine, on right to the ER at 10:18 p.m., the CPR was ongoing, and ROSC achieved 10:25 p.m. according to ER note, the patient coded two more times, 02/02/2025 22:18 with ROSC 10:31 p.m. 01/25/2025 01:34 a.m. with ROSC 01:42 In the hospital, the patient was noticed to have unequal pupil size, but this time the pupils are equally round and slightly reactive Urinalysis, 02/03/2025: 24, urine leukocyte esterase: Negative UDS, 02/03/2025: Fentanyl, amphetamine Plasma alcohol, 02/02/2025: 3.1 ABG, 02/03/2025: Metabolic acidosis WBC/HGB/PLT/MCV, 02/05/2025: 17.4/12.9/261/85.8 PT/INR/APTT, 02/02/2025: 11.3/1.07/, 02/03/2025: 11.7/1.12/38.5, 02/03/2025: 16.1/1.59/54.1 K, 02/02/2025: 2.4, 2, 2.1, 02/03/2025: 2, 2.3 BUN/CR, 02/02/2025: 25/1.56, 02/05/2025, 68/3.64 HGB A1c, 02/03/2025: 501 TBI/AST/ALT/AP, 02/02/2025: 0.4/117/60/83, 02/05/2025: 0.12/2196/519/128 Troponin one high sensitivity, 02/02/2025: 316, 3496, 02/03/2025: 18984 CT head, 02/02/2025: No acute intracranial process Past Medical History Hepatitis-C Past Surgical History Daughters are not aware of the surgeries Family History Unobtainable Social History Unobtainable Allergies: Coded Allergies: NO KNOWN ALLERGIES (Unverified , 01/01/25) Home Meds Active Scripts Tramadol HCl (Tramadol HCl) 50 Mg Tab, 50 MG PO BID, #20 TAB Prov:BRITTANY GASPAR PA 01/19/25 Acetaminophen W/ Codeine (Tylenol W/Cod #3) 1 Tab Tb, 1 TAB PO Q6HP PRN, #20 TAB Prov:HEIDI BERNAL PAC 12/26/23 Ibuprofen Micronized (Ibuprofen) 800 Mg Tab, 800 MG PO Q8HP PRN, #30 TAB Prov:HEIDI BERNAL PAC 12/26/23 Current Medications Current Medications Medications (Trade) Dose Ordered Sig/Abelardo Route PRN Reason Start Time Stop Time Status Last Admin Hydrocortisone Sodium Succinate (Solu-CORTEF INJECTION) 100 mg Q8HR IV 02/04/25 14:00 02/05/25 06:01 Bumetanide 25 mg/ Miscellaneous 100 ml @ 4 mls/hr Q24H IV 02/05/25 07:45 02/05/25 10:03 Heparin Sodium/ Dextrose 250 ml @ 6 mls/hr Q24H IV 02/05/25 10:45 02/05/25 10:49 Amino Acids 0 ml @ 0 mls/hr PER PHARMACY IV 02/05/25 11:45 UNV Review of Systems Unobtainable Vital Signs Vital Signs Date Time Temp Pulse Resp B/P (MAP) Pulse Ox O2 Delivery O2 Flow Rate FiO2 02/05/25 11:30 73 25 117/70 (86) 100 30 02/05/25 09:15 97.5 207.5 02/05/25 08:00 Mechanical Ventilator+ Physical Exam The patient is well-nourished and well-developed with no distress. The patient is intubated HEENT: Normocephalic, neck supple, no carotid bruits Lungs: Clear to auscultation Cardiovascular: Regular rate and region, S1, S2, no murmurs Abdomen: Soft, nontender, normal bowel sounds MENTAL STATUS: Not responsive to the surroundings, CRANIAL NERVES: Pupils are equal, round and slightly reactive. There are weak corneal reflexes and weak doll's eyes phenomenon. No signs of facial weakness. There are gagging or coughing reflexes SENSATION: No responses to pain stimuli. MOTOR: Normal tone in the upper and lower extremity. Normal muscle bulk. No fasciculations. No spontaneous movement. REFLEXES: Deep tendon reflexes are symmetrical. No pathological reflexes. CEREBELLAR/COORDINATION: Deferred GAIT/STATION: deferred. Labs/Diagnostic Data Labs Test 02/05/25 11:57 02/05/25 09:15 02/05/25 06:51 02/05/25 02:58 Range/Units POC Glucose 79 70-106 mg/dl Prothrombin Time 14.2 H 9.3-11.8 sec Prothrombin Time INR 1.38 H 0.9-1.15 Activated Partial Thromboplast Time 44.5 H 24.5-34.5 SEC Blood Gas Specimen Type Arterial Blood Gas Sample Site Right brachial Blood Gas Patient Temperature 37.0 Arterial Blood Date Drawn [id number] Arterial Blood pH 7.547 H 7.350-7.450 Arterial Blood Partial Pressure CO2 27.4 L 32.0-45.0 mmHg Arterial Blood Partial Pressure O2 102.2 83.0-108.0 mmHg Arterial Blood HCO3 23.3 21.0-28.0 mmol/L Arterial Blood Oxygen Saturation 97.9 94.0-98.0 % Arterial Blood Base Excess 2.0 -2.0-3.0 mmol/L Arterial Blood Oxyhemoglobin 97.4 94.0-98.0 % Arterial Blood Carboxyhemoglobin 0.3 L 0.5-1.5 % Arterial Blood Methemoglobin 0.2 0.0-1.5 % Simone Test N/a Blood Gas Total Hemoglobin 13.60 12.0-16.0 g/dL Blood Gas Set Respiration Rate 24.0 Blood Gas Modality Vent - ac FiO2 % 30.0 Blood Gas Tidal Volume 450.0 Blood Gas PEEP or CPAP 5.0 White Blood Count 17.4 H 4.4-10.8 10^3/uL Red Blood Count 4.44 4.0-5.20 10^6/uL Hemoglobin 12.9 12.2-16.2 g/dL Hematocrit 38.1 36.0-46.0 % Mean Corpuscular Volume 85.8 80.0-100.0 fL Mean Corpuscular Hemoglobin 29.0 28.0-32.0 pg Mean Corpuscular Hemoglobin Concent 33.8 32.0-36.0 g/dL Red Cell Distribution Width 16.4 H 11.8-14.3 % Platelet Count 261 140-450 10^3/uL Mean Platelet Volume 9.4 6.9-10.8 fL Neutrophils (%) (Auto) 93.4 H 37.0-80.0 % Lymphocytes (%) (Auto) 3.5 L 10.0-50.0 % Monocytes (%) (Auto) 2.2 0.0-12.0 % Eosinophils (%) (Auto) 0.8 0.0-7.0 % Basophils (%) (Auto) 0.1 0.0-2.0 % Neutrophils # (Auto) 16.2 H 1.6-8.6 10 ^3/uL Lymphocytes # (Auto) 0.6 0.4-5.4 10 ^3/uL Monocytes # (Auto) 0.4 0-1.3 10 ^3/uL Eosinophils # (Auto) 0.1 0-0.8 10 ^3/uL Basophils # (Auto) 0 0-0.2 10 ^3/uL Nucleated Red Blood Cells 0.1 % Sodium Level 144 136-145 mmol/L Potassium Level 4.9 3.5-5.1 mmol/L Chloride Level 103 98-107 mmol/L Carbon Dioxide Level 28 20-31 mmol/L Anion Gap 13 5-15 Blood Urea Nitrogen 68 #H 9-23 mg/dL Creatinine 3.64 #H 0.550-1.02 mg/dL Glomerular Filtration Rate Calc 14 >90 mL/min BUN/Creatinine Ratio 18.7 10.0-20.0 Serum Glucose 82 74-106 mg/dL Calcium Level 6.9 L 8.7-10.4 mg/dL Total Bilirubin 0.7 0.2-1.0 mg/dL Aspartate Amino Transferase (AST) 2197 H 13-40 U/L Alanine Aminotransferase (ALT) 519 H 7-40 U/L Alkaline Phosphatase 128 H 46-116 U/L Total Protein 5.1 L 5.7-8.2 g/dL Albumin 2.9 L 3.2-4.8 g/dL Random Vancomycin Level 20.3 H 5-10 ug/mL Test 02/04/25 23:00 02/04/25 02:03 02/04/25 02:00 02/03/25 16:30 Range/Units Magnesium Level 2.7 H 1.6-2.6 mg/dL Phosphorus Level 4.9 2.4-5.1 mg/dL Blood Gas Spontaneous Rate 31 Blood Gas Spontaneous Tidal Volume 456 Blood Gas Inspiratory Pressure 29.0 Bl Gas Inspiratory/Expiratory Ratio 1:2 Lactic Acid Level 4.7 *H 0.4-2.0 mmol/L Test 02/03/25 08:06 02/03/25 05:33 02/03/25 03:30 02/03/25 01:40 Range/Units Blood Gas Critical Value Read Back Yes Blood Gas Notified Whom janice Maya md Blood Gas Notified Time [id number] Blood Gas Notified By marguerite Figueredo rrt Urine Color Light-orange Yellow Urine Clarity Turbid H Clear Urine pH 6.0 5.0-9.0 Urine Specific [place] 1.012 1.001-1.035 Urine Protein 2+ H Negative Urine Ketones Negative Negative Urine Blood 3+ H Negative /uL Urine Nitrite Negative Negative Urine Bilirubin Negative Negative Urine Urobilinogen 2 H Negative mg/dL Urine Leukocyte Esterase Negative Negative /uL Urine RBC 18 0 - 4 /hpf Urine Microscopic WBC 24 H 0-5 /HPF Urine Squamous Epithelial Cells Few <5 /hpf Urine Amorphous Crystals Few None Seen /hpf Urine Bacteria None seen None Seen /hpf Urine Hyaline Casts Few 0 - 2 /lpf Urine Glucose 3+ H Normal mg/dL Urine Opiates Screen Neg NEGATIVE Urine Fentanyl Screen Pos NEGATIVE Urine Barbiturates Screen Neg NEGATIVE Urine Phencyclidine Screen Neg NEGATIVE Urine Amphetamines Screen Pos NEGATIVE Urine Benzodiazepines Screen Pos NEGATIVE Urine Cocaine Screen Neg NEGATIVE Urine Cannabinoids Screen Neg NEGATIVE Hemoglobin A1c 5.1 <5.7 % A1C Free Thyroxine (T4) Calculated 1.18 0.89-1.76 ng/dL Free Triiodothyronine (T3) pg/mL 2.90 2.3-4.2 pg/mL Troponin I High Sensitivity 16189 *H </=34 ng/L Test 02/02/25 22:30 Range/Units B-Type Natriuretic Peptide 164.78 0-100 pg/mL Lipase 30 12-53 U/L Thyroid Stimulating Hormone (TSH) 2.25 0.55-4.78 uIU/mL Plasma/Serum Blood Alcohol 3.1 <10 mg/dL Microbiology Date/Time Source Procedure Growth Status 02/03/25 08:40 Nose MRSA Screen - Final Methicillin Resistant S.aureus Complete 02/03/25 05:33 Urine - [place] Urine Culture - Preliminary Resulted 02/02/25 22:56 Blood Blood Culture - Preliminary Resulted 02/02/25 22:45 Sputum Gram Stain - Final Resulted 02/02/25 22:45 Sputum Respiratory Culture - Preliminary Resulted Assessment Coma Hypoxic encephalopathy Metabolic encephalopathy Cardiopulmonary arrest/status post CPR Acute respiratory failure Heart attack Anisocoria, intermittent ? Brain herniation Leukocytosis/rule out sepsis Plan/Recommendation Monitoring Supportive treatment ICU care EEG Follow up CT brain scan Stabilize vitals/pressor drip Respiratory support/vent management Oxygen IV antibiotics IV heparin drip GI prophylax More recommendation per clinical course Prognosis: Guarded I have discussed with her daughters, and nurse This medical document was created using an electronic medical record system with [employer] dictation system. Although this document has been carefully reviewed, there may still be some phonetic and typographical errors. These areas are purely typographical due to imperfections of the software programs, and do not reflect any compromise in the patient's medical care. Plan discussed with: Daughter, Other ELISA STACY MD Feb 05, 2025 12:26
--- NOTE | 2025-02-05 14:33 | DVHPN2 ---
Progress Note - Dictate Date Seen: Feb 05, 2025 Medical Necessity Reason Pt with a Central, PICC or Fol: Yes The following are medically ne: Central Line, [place] Catheter vital signs Vital Sign Date Time Temp Pulse Resp B/P (MAP) Pulse Ox O2 Delivery O2 Flow Rate FiO2 02/05/25 14:00 78 02/05/25 13:55 26 136/86 (103) 100 30 02/05/25 09:15 97.5 207.5 02/05/25 08:00 Mechanical Ventilator+ Total Intake and Output 02/04/25 02/04/25 02/05/25 15:00 23:00 07:00 Intake Total 741.16 ml 769.81 ml 157.58 ml Output Total 450 ml Balance 741.16 ml 769.81 ml -292.42 ml medications Current Medications Medications Dose Ordered Sig/Abelardo Route Start Time Stop Time Status Last Admin Dose Admin Midazolam HCl 50 ml @ 1 mls/hr Q24H IV 02/02/25 22:45 02/02/25 22:40 7 MLS/HR Fentanyl Citrate 250 ml @ 2.5 mls/hr Q24H IV 02/02/25 23:15 02/03/25 16:45 2.5 MLS/HR Propofol 100 ml @ 1.565 mls/ hr Q24H IV 02/03/25 02:00 02/03/25 02:00 1.565 MLS/HR Vancomycin HCl 0 ml @ 0 mls/hr UD IV 02/03/25 03:00 Diagnostic Test (Pha) 1 strip Q6HR 02/03/25 06:00 02/05/25 12:19 1 STRIP Insulin Human Regular Q6HR SC 02/03/25 06:00 02/03/25 11:20 2 UNITS Dextrose 50 ml UD PRN IV 02/03/25 03:00 02/04/25 18:15 50 ML Dopamine HCl/ Dextrose 250 ml @ 9.781 mls/ hr Q24H IV 02/03/25 06:15 02/03/25 19:21 3.912 MLS/HR Vasopressin 20 units/Sodium Chloride 100 ml @ 9 mls/hr Q11H7M IV 02/03/25 06:15 02/05/25 09:15 9 MLS/HR Phenylephrine HCl 80 mg/Sodium Chloride 250 ml @ 7.5 mls/hr Q24H IV 02/03/25 08:00 02/03/25 15:38 29.063 MLS/HR Norepinephrine Bitartrate 32 mg/ Sodium Chloride 250 ml @ 0.938 mls/ hr Q24H IV 02/03/25 08:00 02/04/25 05:04 2.813 MLS/HR Epinephrine HCl 16 mg/Dextrose 250 ml @ 1.875 mls/ hr Q24H IV 02/03/25 08:00 02/03/25 09:11 9.375 MLS/HR Mupirocin 1 applic BID EACHNOSTRI 02/03/25 22:00 02/08/25 21:59 02/05/25 10:09 1 APPLIC Cefepime HCl 50 ml @ 12.5 mls/hr Q12H IV 02/04/25 11:00 02/05/25 10:45 12.5 MLS/HR Hydrocortisone Sodium Succinate 100 mg Q8HR IV 02/04/25 14:00 02/05/25 14:23 100 MG Bumetanide 25 mg/ Miscellaneous 100 ml @ 4 mls/hr Q24H IV 02/05/25 07:45 02/05/25 10:03 4 MLS/HR Heparin Sodium/ Dextrose 250 ml @ 6 mls/hr Q24H IV 02/05/25 10:45 02/05/25 10:49 6 MLS/HR Amino Acids 0 ml @ 0 mls/hr PER PHARMACY IV 02/05/25 11:45 UNV laboratory and microbiology Laboratory Tests 02/05/25 02:58 Test 02/05/25 02:58 Range/Units Serum Glucose 82 74-106 mg/dL Assessment/Plan ICU rounds 54-year-old lady status post cardiac arrest Requiring CPR Downtime unknown Cardiogenic shock Acute hypoxemic has been story failure Multiorgan failure Patient was seen and examined in the ICU events on mechanical ventilation s/p cardiac arrest PEEP 5, FiO2 30% Previously on 5 pressors, now on 1 Concern raised for anoxic brain injury Labs reviewed BUN and creatinine elevated Management Plan Continue pressors Keep MAP be above 65 Echo report noted MILD LVH AND MILD LV DIASTOLIC DYSFUCTION LV EF 50% DYSKINESIS OF IVS MODERATELY DILATED RV MODERATE DEGREE PULMONARY HYPERTENSION RVSP IS 46 MM OF HG AND IS MODERATELY HIGH MODERATELY DILATED LA NORMAL VALVES NO EFFUSION Stress dose steroids Empiric antibiotics Bronchodilators GI and DVT prophylaxis Prognosis very poor Critical care time 35 minutes Continue antibiotics Dietary Evaluation Review Comments: Nutrition Recommendation: 1) TF Jevity 1.2Cal @ 50ml/hr x 24hr (goal) along with Pro-stat 1 pk daily. Start @ 20ml/hr, increase 10ml/hr Q4H until goal is reached. TF @ goal volume along with Pro-Stat provide 1540 kcal (100% energy needs), 82 gm protein (100% protein needs), 968 ml free water. 2) Water flush 100ml Q4H if allowed, adjust PRN 3) TPN if NPO >7 days 4) Monitor NPO status, lab values, wt trend, I/O Expected Outcomes/Goals: Lab values to improve Fu 2-3 days Plan discussed with: Other (Rn) MIRTHA NAGEL MD Feb 05, 2025 14:33
[2025-02-05 18:40] LABS: INR 1.3 (0.9-1.15); Partial Thromboplastin Time 46.7 SEC (24.5-34.5); Prothrombin Time 13.4 sec (9.3-11.8)
[2025-02-05] MEDS: hydrALAZINE HCL 20 MG/ML VL IV PRN (19:17)
--- NOTE | 2025-02-05 23:58 | DVHPN2 ---
Progress Note - Dictate Date Seen: Feb 05, 2025 Medical Necessity Reason Pt with a Central, PICC or Fol: Yes The following are medically ne: Central Line, [place] Catheter Subjective Patient was seen and evaluated in follow up in the ICU. Patient is intubated and sedated on ventilator. 30% FiO2. Patient remains on vasopressors and heparin drip. WBC 17.4, BUN 68, PERPETUAL INVENTORY CLERK 3.64, CA 6.9, AST 2197, ALT 519. Chest x-ray showed NAD. vital signs Vital Sign Date Time Temp Pulse Resp B/P (MAP) Pulse Ox O2 Delivery O2 Flow Rate FiO2 02/05/25 13:55 85 26 136/86 (103) 100 30 02/05/25 09:15 97.5 207.5 02/05/25 08:00 Mechanical Ventilator+ Total Intake and Output 02/04/25 02/04/25 02/05/25 15:00 23:00 07:00 Intake Total 741.16 ml 769.81 ml 157.58 ml Output Total 450 ml Balance 741.16 ml 769.81 ml -292.42 ml medications Current Medications Medications Dose Ordered Sig/Abelardo Route Start Time Stop Time Status Last Admin Dose Admin Midazolam HCl 50 ml @ 1 mls/hr Q24H IV 02/02/25 22:45 02/02/25 22:40 7 MLS/HR Fentanyl Citrate 250 ml @ 2.5 mls/hr Q24H IV 02/02/25 23:15 02/03/25 16:45 2.5 MLS/HR Propofol 100 ml @ 1.565 mls/ hr Q24H IV 02/03/25 02:00 02/03/25 02:00 1.565 MLS/HR Vancomycin HCl 0 ml @ 0 mls/hr UD IV 02/03/25 03:00 Diagnostic Test (Pha) 1 strip Q6HR 02/03/25 06:00 02/05/25 12:19 1 STRIP Insulin Human Regular Q6HR SC 02/03/25 06:00 02/03/25 11:20 2 UNITS Dextrose 50 ml UD PRN IV 02/03/25 03:00 02/04/25 18:15 50 ML Dopamine HCl/ Dextrose 250 ml @ 9.781 mls/ hr Q24H IV 02/03/25 06:15 02/03/25 19:21 3.912 MLS/HR Vasopressin 20 units/Sodium Chloride 100 ml @ 9 mls/hr Q11H7M IV 02/03/25 06:15 02/05/25 09:15 9 MLS/HR Phenylephrine HCl 80 mg/Sodium Chloride 250 ml @ 7.5 mls/hr Q24H IV 02/03/25 08:00 02/03/25 15:38 29.063 MLS/HR Norepinephrine Bitartrate 32 mg/ Sodium Chloride 250 ml @ 0.938 mls/ hr Q24H IV 02/03/25 08:00 02/04/25 05:04 2.813 MLS/HR Epinephrine HCl 16 mg/Dextrose 250 ml @ 1.875 mls/ hr Q24H IV 02/03/25 08:00 02/03/25 09:11 9.375 MLS/HR Mupirocin 1 applic BID EACHNOSTRI 02/03/25 22:00 02/08/25 21:59 02/05/25 10:09 1 APPLIC Cefepime HCl 50 ml @ 12.5 mls/hr Q12H IV 02/04/25 11:00 02/05/25 10:45 12.5 MLS/HR Hydrocortisone Sodium Succinate 100 mg Q8HR IV 02/04/25 14:00 02/05/25 06:01 100 MG Bumetanide 25 mg/ Miscellaneous 100 ml @ 4 mls/hr Q24H IV 02/05/25 07:45 02/05/25 10:03 4 MLS/HR Heparin Sodium/ Dextrose 250 ml @ 6 mls/hr Q24H IV 02/05/25 10:45 02/05/25 10:49 6 MLS/HR Amino Acids 0 ml @ 0 mls/hr PER PHARMACY IV 02/05/25 11:45 UNV objective GENERAL: Ill appearing, intubated on ventilator. EYES: PERRL, EOMI. Anicteric. HENT: Moist mucous membranes. LUNGS: Decreased breath sounds. CARDIOVASCULAR: Irregular rate and rhythm. ABDOMEN: Soft, nontender and nondistended. EXTREMITIES: Trace edema. SKIN: Bilateral feet are mottled. laboratory and microbiology Laboratory Tests 02/05/25 02:58 Test 02/05/25 02:58 Range/Units Serum Glucose 82 74-106 mg/dL Problem List Cardiopulmonary arrest s/p CPR with return of spontaneous circulation. NSTEMI. Rule out structural heart disease. Prolonged QTc interval. Septic shock. Hypokalemia. Acute kidney injury. Transaminitis. Polysubstance abuse. Assessment/Plan Continued all current supportive medical care. Diuretics with Bumex. IV antibiotics as ordered. Dopamine drip. Heparin drip per pharmacy. Vasopressors for hemodynamic support. Additional plan as per the hospital course. Critical care time of 45 minutes provided to include time spent evaluation of patient at bedside, when appropriate patient/family education for diagnosis, treatment plan, review of pertinent medical information and discussion of care with specialty providers and PCP. Mechanical ventilator parameters, treatment and adjustments have personally been reviewed by me and treatment plan by violent crimes detective has also been reviewed. Dietary Evaluation Review Comments: Nutrition Recommendation: 1) TF Jevity 1.2Cal @ 50ml/hr x 24hr (goal) along with Pro-stat 1 pk daily. Start @ 20ml/hr, increase 10ml/hr Q4H until goal is reached. TF @ goal volume along with Pro-Stat provide 1540 kcal (100% energy needs), 82 gm protein (100% protein needs), 968 ml free water. 2) Water flush 100ml Q4H if allowed, adjust PRN 3) TPN if NPO >7 days 4) Monitor NPO status, lab values, wt trend, I/O Expected Outcomes/Goals: Lab values to improve Fu 2-3 days Plan discussed with: SKYE Alonso MD Feb 05, 2025 14:15
[2025-02-06] VITALS (107 sets, daily range): BP systolic 115–161; BP diastolic 77–105; PULSE 84–93; RESP 15–25; TEMP 97.2–99.1; O2SAT 98–100
--- NOTE | 2025-02-06 01:22 | DVHEEG2 ---
Neurology EEG Procedural Note Procedural Note EXAM DATE: 02/05/2025 REFERRING DOCTOR: Dr. Stacy TECHNIQUE: Eighteen channels of EEG, 2 channels of EOG, and 1 channel of EKG were recorded using the International 10/20 system. CLINICAL DATA: The patient was referred for an EEG evaluation for the evidence of seizure disorder. MEDICATIONS: See chart BACKGROUND ACTIVITY: There was significant amount of environmental, the EEG is likely low-amplitude diffuse theta activity over both hemispheres that was reactive to external stimuli. ACTIVATION: Hyperventilation: Not done Photic Stimulation: Not done Sleep: Nonresponsiveness IMPRESSION: This is a abnormal EEG, this EEG seen in cerebral dysfunction due to metabolic/hypoxic encephalopathy or medication effects, please correlate clinically The EKG channel showed a regular heart rate of 84/hour [place] [address] ELISA STACY MD Feb 06, 2025 01:22
[2025-02-06 02:54] LABS: Hematocrit 38.4 % (36.0-46.0); Hemoglobin 12.9 g/dL (12.2-16.2); Mean Corpuscular Hemoglobin 28.8 pg (28.0-32.0); Mean Corpuscular Volume 85.6 fL (80.0-100.0); Nucleated Red Blood Cells % 0.1 %
[2025-02-06 03:05] LABS: Albumin 3.3 g/dL (3.2-4.8); Anion Gap 15 (5-15); BUN/Creatinine Ratio 20.5 (10.0-20.0); Bilirubin, Total 0.6 mg/dL (0.2-1.0); Carbon Dioxide 24 mmol/L (20-31); Chloride 103 mmol/L (98-107); Glucose 105 mg/dL (74-106); Potassium 4.7 mmol/L (3.5-5.1); Sodium 142 mmol/L (136-145); Total Protein 5.8 g/dL (5.7-8.2)
[2025-02-06 03:17] LABS: Alanine Aminotransferase 316 U/L (7-40); Alkaline Phosphatase 152 U/L (46-116); Calcium 7.1 mg/dL (8.7-10.4); INR 1.3 (0.9-1.15); Magnesium 2.7 mg/dL (1.6-2.6); Prothrombin Time 13.4 sec (9.3-11.8)
[2025-02-06 03:19] LABS: Blood Urea Nitrogen 93 mg/dL (9-23); Partial Thromboplastin Time 93.3 SEC (24.5-34.5)
[2025-02-06] MEDS ORDERED: HEPARIN DRIP/D5W 100UNITS/ML 250 ML IV SCH ×2 (03:30→04:30)
[2025-02-06] MEDS ORDERED: Jevity 1.2 Cal/Fiber 1 Liter GT SCH (07:30)
--- NOTE | 2025-02-06 07:52 | ECG ---
[facility] Test Date: 2025-02-04 Test Time: 01:45:38 Pat Name: KAYLA RODRIGUES Department: ICu Room: [address] [place] [address] A Gender: F Bone Worker: MARLEN : 1970 Requested By: KAREN GRAF Order Number: [id number] Reading MD: Choco Rosen Measurements Intervals [place] Rate: 96 P: 86 NC: 147 QRS: 113 QRSD: 73 T: 225 QT: 453 QTc: 573 Interpretive Statements Sinus rhythm Ventricular premature complex Right axis deviation Low voltage, extremity and precordial leads Abnormal R-wave progression, early transition Nonspecific repolarization abnormalities Minimal ST elevation, anterior leads Prolonged QT interval Lead(s) I were not used for morphology analysis Electronically Signed On 02-06-2025 22:15:59 PDT by Choco Rosen Please click the below link to view image of tracing.
--- NOTE | 2025-02-06 08:28 | DVH ---
CHEST RADIOGRAPH Indication: PT INTUBATED Technique: Single frontal view of the chest was obtained COMPARISON: XY CHEST PORTABLE on DOS: 02/05/25, XY CHEST PORTABLE on DOS: 02/04/25, XY CHEST PORTABLE o n DOS: 02/04/25, XY CHEST XRAY 1 VIEW on DOS: 02/04/25, XY CHEST XRAY 1 VIEW on DOS: 02/03/25 FINDINGS: Lines and Tubes: Endotracheal tube and enteric catheter in satisfactory position Lungs: Clear Pleura: No effusion. No pneumothorax. Cardiomediastinal contours: Unremarkable Bones: Unremarkable IMPRESSION: Lines and tubes in satisfactory position. No significant interval change.
--- NOTE | 2025-02-06 08:51 | CONS ---
Pharmacy Clinical Information: HEPARIN DRIP, ACS PROTOCOL THE DRIP WAS RUNNING AT 500 UNITS/HR AT 08:45 @02:32 APTT 93.3 - HOLD HEPARIN DRIP FOR 1 HR, RESTART HEPARIN DRIP AT RATE 200 UNITS/HRAT 09:45 NEXT APTT DRAW SCHEDULED @1545 PER RX PROTOCOL CONFIRMED AND READ BACK [facility] Feb 06, 2025 08:51
[2025-02-06] MEDS: HEPARIN DRIP/D5W 100UNITS/ML 250 ML IV SCH ×3 (09:45→19:30)
--- NOTE | 2025-02-06 10:55 | ECG ---
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
--- NOTE | 2025-02-06 10:56 | ECG ---
[facility] Test Date: 2025-02-02 Test Time: 23:26:06 Pat Name: KAYLA RODRIGUES Department: ED Room: [address] [place] [address] A Gender: F Second Cutter: KAYODE : 1970 Requested By: SAKSHI RAJAN Order Number: [id number] Reading MD: Choco Rosen Measurements Intervals [place] Rate: 86 P: 77 OR: 122 QRS: 74 QRSD: 109 T: 53 QT: 358 QTc: 429 Interpretive Statements Sinus rhythm Ventricular bigeminy RSR' in V1 or V2, probably normal variant Nonspecific repol abnormality, diffuse leads Electronically Signed On 02-06-2025 22:47:50 PDT by Choco Rosen Please click the below link to view image of tracing.
[2025-02-06] MEDS: CEFEPIME 1GM/ 50ML 50 ML IV SCH (11:13)
--- NOTE | 2025-02-06 11:20 | DVHPN2 ---
Progress Note - Dictate Date Seen: Feb 06, 2025 Medical Necessity Reason Pt with a Central, PICC or Fol: Yes The following are medically ne: Central Line, Cancino Catheter Subjective Mr. Isabel is a 54 years old right-handed female with a history of hepatitis- C, she was brought to the [facility] on 02/02/2025 with a chief complaint of cardiopulmonary arrest. I have seen and examined the patient, I have discussed with her nurse, her sister in the room. She is nonresponsive to stroke painful stimuli, her pupils are equal round, but are a very small Urinalysis, 02/03/2025: 24, urine leukocyte esterase: Negative UDS, 02/03/2025: Fentanyl, amphetamine Plasma alcohol, 02/02/2025: 3.1 ABG, 02/03/2025: Metabolic acidosis WBC/HGB/PLT/MCV, 02/05/2025: 17.4/12.9/261/85.8 PT/INR/APTT, 02/02/2025: 11.3/1.07/, 02/03/2025: 11.7/1.12/38.5, 02/03/2025: 16.1/1.59/54.1 K, 02/02/2025: 2.4, 2, 2.1, 02/03/2025: 2, 2.3 BUN/CR, 02/02/2025: 25/1.56, 02/05/2025, 68/3.64 HGB A1c, 02/03/2025: 501 TBI/AST/ALT/AP, 02/02/2025: 0.4/117/60/83, 02/05/2025: 0.12/2196/519/128 Troponin one high sensitivity, 02/02/2025: 316, 3496, 02/03/2025: [address] CT head, 02/02/2025: No acute intracranial process vital signs Vital Sign Date Time Temp Pulse Resp B/P (MAP) Pulse Ox O2 Delivery O2 Flow Rate FiO2 02/06/25 09:54 87 22 142/99 (113) 100 30 02/06/25 06:45 97.3 207.1 02/06/25 06:00 Mechanical Ventilator+ Total Intake and Output 02/05/25 02/05/25 02/06/25 15:00 23:00 07:00 Intake Total 508.04 ml 694.76 ml 237.5 ml Output Total 450 ml 650 ml Balance 508.04 ml 244.76 ml -412.5 ml medications Current Medications Medications Dose Ordered Sig/Abelardo Route Start Time Stop Time Status Last Admin Dose Admin Midazolam HCl 50 ml @ 1 mls/hr Q24H IV 02/02/25 22:45 02/02/25 22:40 7 MLS/HR Fentanyl Citrate 250 ml @ 2.5 mls/hr Q24H IV 02/02/25 23:15 02/03/25 16:45 2.5 MLS/HR Propofol 100 ml @ 1.565 mls/ hr Q24H IV 02/03/25 02:00 02/03/25 02:00 1.565 MLS/HR Vancomycin HCl 0 ml @ 0 mls/hr UD IV 02/03/25 03:00 Diagnostic Test (Pha) 1 strip Q6HR 02/03/25 06:00 02/06/25 06:00 1 STRIP Insulin Human Regular Q6HR SC 02/03/25 06:00 02/03/25 11:20 2 UNITS Dextrose 50 ml UD PRN IV 02/03/25 03:00 02/04/25 18:15 50 ML Dopamine HCl/ Dextrose 250 ml @ 9.781 mls/ hr Q24H IV 02/03/25 06:15 02/03/25 19:21 3.912 MLS/HR Vasopressin 20 units/Sodium Chloride 100 ml @ 9 mls/hr Q11H7M IV 02/03/25 06:15 02/05/25 09:15 9 MLS/HR Phenylephrine HCl 80 mg/Sodium Chloride 250 ml @ 7.5 mls/hr Q24H IV 02/03/25 08:00 02/03/25 15:38 29.063 MLS/HR Norepinephrine Bitartrate 32 mg/ Sodium Chloride 250 ml @ 0.938 mls/ hr Q24H IV 02/03/25 08:00 02/04/25 05:04 2.813 MLS/HR Epinephrine HCl 16 mg/Dextrose 250 ml @ 1.875 mls/ hr Q24H IV 02/03/25 08:00 02/03/25 09:11 9.375 MLS/HR Mupirocin 1 applic BID EACHNOSTRI 02/03/25 22:00 02/08/25 21:59 02/06/25 11:07 1 APPLIC Bumetanide 25 mg/ Miscellaneous 100 ml @ 4 mls/hr Q24H IV 02/05/25 07:45 02/06/25 03:29 4 MLS/HR Hydralazine HCl 10 mg Q6HP PRN IV 02/05/25 19:00 02/06/25 02:46 10 MG Cefepime HCl 50 ml @ 12.5 mls/hr DAILY@1000 IV 02/06/25 10:00 02/06/25 11:13 12.5 MLS/HR Hydrocortisone Sodium Succinate 50 mg Q12HR IV 02/06/25 10:00 UNV Enteral Nutritional Formula 1,000 ml 40ML/HR GT 02/06/25 07:30 UNV Heparin Sodium/ Dextrose 250 ml @ 2 mls/hr Q24H IV 02/06/25 09:45 02/06/25 09:45 2 MLS/HR objective The patient is well-nourished and well-developed with no distress. The patient is intubated MENTAL STATUS: Substitute CRANIAL NERVES: Pupils are equal, round and slightly reactive, very small. There are no corneal reflexes and weak doll's eyes phenomenon. No signs of facial weakness. There are no gagging or coughing reflexes SENSATION: No responses to pain stimuli. MOTOR: Normal tone in the upper and lower extremity. Normal muscle bulk. No fasciculations. No spontaneous movement. REFLEXES: Deep tendon reflexes are symmetrical. No pathological reflexes. CEREBELLAR/COORDINATION: Deferred GAIT/STATION: deferred. laboratory and microbiology Laboratory Tests 02/06/25 02:32 Test 02/06/25 02:32 Range/Units Serum Glucose 105 74-106 mg/dL Problem List Coma Hypoxic encephalopathy Metabolic encephalopathy Cardiopulmonary arrest/status post CPR Acute respiratory failure Heart attack Anisocoria, intermittent ? Brain herniation Leukocytosis/rule out sepsis Assessment/Plan Monitoring Supportive treatment ICU care Follow up CT brain scan Stabilize vitals/pressor drip Respiratory support/vent management Oxygen IV antibiotics IV heparin drip GI prophylax More recommendation per clinical course This medical document was created using an electronic medical record system with [employer] dictation system. Although this document has been carefully reviewed, there may still be some phonetic and typographical errors. These areas are purely typographical due to imperfections of the software programs, and do not reflect any compromise in the patient's medical care. Prognosis guarded Dietary Evaluation Review Comments: Nutrition Recommendation: 1) TF Jevity 1.2Cal @ 50ml/hr x 24hr (goal) along with Pro-stat 1 pk daily. Start @ 20ml/hr, increase 10ml/hr Q4H until goal is reached. TF @ goal volume along with Pro-Stat provide 1540 kcal (100% energy needs), 82 gm protein (100% protein needs), 968 ml free water. 2) Water flush 100ml Q4H if allowed, adjust PRN 3) TPN if NPO >7 days 4) Monitor NPO status, lab values, wt trend, I/O Expected Outcomes/Goals: Lab values to improve Fu 2-3 days Plan discussed with: Other Critical Care Time(min): 35 ELISA STACY MD Feb 06, 2025 11:20
[2025-02-06 11:24] LABS: INR 1.21 (0.9-1.15); Partial Thromboplastin Time 35.6 SEC (24.5-34.5); Prothrombin Time 12.6 sec (9.3-11.8)
[2025-02-06 11:30] LABS: INR 1.21 (0.9-1.15); Partial Thromboplastin Time 35.6 SEC (24.5-34.5); Prothrombin Time 12.6 sec (9.3-11.8)
--- NOTE | 2025-02-06 11:46 | DVHPN2 ---
Progress Note Date Seen: Feb 06, 2025 Medical Necessity Reason Pt with a Central, PICC or Fol: Yes The following are medically ne: Central Line, Cancino Catheter Subjective Review of Systems: Deferred Objective vital signs Vital Sign Date Time Temp Pulse Resp B/P (MAP) Pulse Ox O2 Delivery O2 Flow Rate FiO2 02/06/25 09:54 87 22 142/99 (113) 100 30 02/06/25 06:45 97.3 207.1 02/06/25 06:00 Mechanical Ventilator+ Total Intake and Output 02/05/25 02/05/25 02/06/25 15:00 23:00 07:00 Intake Total 508.04 ml 694.76 ml 237.5 ml Output Total 450 ml 650 ml Balance 508.04 ml 244.76 ml -412.5 ml medications Current Medications Medications Dose Ordered Sig/Abelardo Route Start Time Stop Time Status Last Admin Dose Admin Midazolam HCl 50 ml @ 1 mls/hr Q24H IV 02/02/25 22:45 02/02/25 22:40 7 MLS/HR Fentanyl Citrate 250 ml @ 2.5 mls/hr Q24H IV 02/02/25 23:15 02/03/25 16:45 2.5 MLS/HR Propofol 100 ml @ 1.565 mls/ hr Q24H IV 02/03/25 02:00 02/03/25 02:00 1.565 MLS/HR Vancomycin HCl 0 ml @ 0 mls/hr UD IV 02/03/25 03:00 Dopamine HCl/ Dextrose 250 ml @ 9.781 mls/ hr Q24H IV 02/03/25 06:15 02/03/25 19:21 3.912 MLS/HR Vasopressin 20 units/Sodium Chloride 100 ml @ 9 mls/hr Q11H7M IV 02/03/25 06:15 02/05/25 09:15 9 MLS/HR Phenylephrine HCl 80 mg/Sodium Chloride 250 ml @ 7.5 mls/hr Q24H IV 02/03/25 08:00 02/03/25 15:38 29.063 MLS/HR Norepinephrine Bitartrate 32 mg/ Sodium Chloride 250 ml @ 0.938 mls/ hr Q24H IV 02/03/25 08:00 02/04/25 05:04 2.813 MLS/HR Epinephrine HCl 16 mg/Dextrose 250 ml @ 1.875 mls/ hr Q24H IV 02/03/25 08:00 02/03/25 09:11 9.375 MLS/HR Mupirocin 1 applic BID EACHNOSTRI 02/03/25 22:00 02/08/25 21:59 02/06/25 11:07 1 APPLIC Bumetanide 25 mg/ Miscellaneous 100 ml @ 4 mls/hr Q24H IV 02/05/25 07:45 02/06/25 03:29 4 MLS/HR Hydralazine HCl 10 mg Q6HP PRN IV 02/05/25 19:00 02/06/25 02:46 10 MG Cefepime HCl 50 ml @ 12.5 mls/hr DAILY@1000 IV 02/06/25 10:00 02/06/25 11:13 12.5 MLS/HR Hydrocortisone Sodium Succinate 50 mg Q12HR IV 02/06/25 10:00 UNV Enteral Nutritional Formula 1,000 ml 40ML/HR GT 02/06/25 07:30 UNV Heparin Sodium/ Dextrose 250 ml @ 2 mls/hr Q24H IV 02/06/25 09:45 02/06/25 09:45 2 MLS/HR Pantoprazole Sodium 40 mg DAILY IV 02/07/25 10:00 UNV Enteral Nutritional Formula 1,000 ml 30ML/HR GT 02/06/25 11:30 UNV Heparin Sodium/ Dextrose 250 ml @ 4 mls/hr Q24H IV 02/06/25 11:45 Examination: GENERAL:Abnormal, LUNGS:Abnormal, SKIN:Abnormal laboratory and microbiology Laboratory Tests 02/06/25 02:32 Test 02/06/25 02:32 Range/Units Serum Glucose 105 74-106 mg/dL Microbiology Date/Time Source Procedure Growth Status 02/03/25 08:40 Nose MRSA Screen - Final Methicillin Resistant S.aureus Complete 02/03/25 05:33 Urine - Cancino Port Urine Culture - Final Complete 02/02/25 22:56 Blood Blood Culture - Preliminary Resulted 02/02/25 22:45 Sputum Gram Stain - Final Complete 02/02/25 22:45 Sputum Respiratory Culture - Final Complete Problem List/Assessment/Plan Problem List/Assessment/Plan Acute kidney injury likely in the setting of shock acute kidney injury likely ATN in the setting Of shock polysubstance abuse suspected drug overdose Cardiac arrest status post CPR Ventilator-dependent hypoxic respiratory failure Shock Lactic acidosis Hypokalemia Recommendations Bumex drip will reduce rate And monitor renal function closely // not a candidate for MEDIA SENIOR RECRUITER [facility] Strict Is&Os no gag or cough reflexes per RN Grave prognosis Consider comfort care, advance dirrective discussions Plan discussed with: Other Dietary Evaluation Review Comments: Nutrition Recommendation: 1) TF Jevity 1.2Cal @ 50ml/hr x 24hr (goal) along with Pro-stat 1 pk daily. Start @ 20ml/hr, increase 10ml/hr Q4H until goal is reached. TF @ goal volume along with Pro-Stat provide 1540 kcal (100% energy needs), 82 gm protein (100% protein needs), 968 ml free water. 2) Water flush 100ml Q4H if allowed, adjust PRN 3) TPN if NPO >7 days 4) Monitor NPO status, lab values, wt trend, I/O Expected Outcomes/Goals: Lab values to improve Fu 2-3 days Critical Care Time (mins): 33 MARKO PETERS MD Feb 06, 2025 11:46
--- NOTE | 2025-02-06 13:25 | DVH ---
Procedure: CT HEAD WITHOUT CONTRAST Study Date and Requested Time: 02/06/2025 12:43 PM History: S/P CPR Comparison: CT HEAD WITHOUT CONTRAST on DOS: 02/03/25 Dose: CTDI: 53.26 mGy DLP: 1.71 mGycm Technique: Multiplanar images obtained through the brain without intravenous contrast. Findings: There is diffuse loss of pickens-white differentiation throughout entire brain. No hemorrhages, masses, or midline shift. No intra-axial or extra-axial fluid collections. There is partial effacement of the lateral ventricles ventricle with near-complete effacement of the ventricle . There is effacement of the basal cisterns. The pituitary gland, sella and parasellar regions are unremarkable. The cerebellar tonsils are in nor mal position. There is loss of the folia of the cerebellum. There is mild effacement of the left post erior fossa arachnoid cyst The orbits and globes are unremarkable. The paranasal sinuses and mastoids are clear. There are no wo rrisome calvarial lesions. Impression: There is supratentorial and infratentorial diffuse brain edema. Critical Result: Diffuse brain edema Findings discussed with patients nurse longview , at 02/06/2025 01:20 PM, and acknowledged receipt an d understanding of the findings. ..
[2025-02-06] MEDS: HYDROCORTISONE SOD SUCC 100 MG/2ML INJ VIAL IV SCH (13:37)
[2025-02-06] MEDS: PANTOPRAZOLE 40 MG/10 ML VIAL INJ IV ONE (13:37)
[2025-02-06 18:15] LABS: INR 1.32 (0.9-1.15); Partial Thromboplastin Time 45.6 SEC (24.5-34.5); Prothrombin Time 13.6 sec (9.3-11.8)
[2025-02-06] MEDS: hydrALAZINE HCL 20 MG/ML VL IV PRN (19:54)
--- NOTE | 2025-02-06 20:29 | DVHPNRES ---
Progress Note Date Seen: Feb 06, 2025 Resident Creating Document: BRANDY HERNANDEZ RESIDENT Medical Necessity Reason Pt with a Central, PICC or Fol: Yes The following are medically ne: Central Line, Cancino Catheter Subjective Review of Systems 02/06 Patient seen and examined at the bedside. Pupils fixed and dilated, no responds to painful stimulation. CT head without contrast was done which showed diffuse supratentorial and infratentorial brain edema. Objective vital signs Vital Sign Date Time Temp Pulse Resp B/P (MAP) Pulse Ox O2 Delivery O2 Flow Rate FiO2 02/06/25 19:54 164/103 02/06/25 19:45 99.0 88 17 100 99.0 02/06/25 18:00 Mechanical Ventilator+ 30 30 Total Intake and Output 02/05/25 02/05/25 02/06/25 15:00 23:00 07:00 Intake Total 508.04 ml 694.76 ml 246.5 ml Output Total 450 ml 650 ml Balance 508.04 ml 244.76 ml -403.5 ml medications Current Medications Medications Dose Ordered Sig/Abelardo Route Start Time Stop Time Status Last Admin Dose Admin Vancomycin HCl 0 ml @ 0 mls/hr UD IV 02/03/25 03:00 Dopamine HCl/ Dextrose 250 ml @ 9.781 mls/ hr Q24H IV 02/03/25 06:15 02/03/25 19:21 3.912 MLS/HR Vasopressin 20 units/Sodium Chloride 100 ml @ 9 mls/hr Q11H7M IV 02/03/25 06:15 02/05/25 09:15 9 MLS/HR Phenylephrine HCl 80 mg/Sodium Chloride 250 ml @ 7.5 mls/hr Q24H IV 02/03/25 08:00 02/03/25 15:38 29.063 MLS/HR Norepinephrine Bitartrate 32 mg/ Sodium Chloride 250 ml @ 0.938 mls/ hr Q24H IV 02/03/25 08:00 02/04/25 05:04 2.813 MLS/HR Epinephrine HCl 16 mg/Dextrose 250 ml @ 1.875 mls/ hr Q24H IV 02/03/25 08:00 02/03/25 09:11 9.375 MLS/HR Mupirocin 1 applic BID EACHNOSTRI 02/03/25 22:00 02/08/25 21:59 02/06/25 11:07 1 APPLIC Bumetanide 25 mg/ Miscellaneous 100 ml @ 4 mls/hr Q24H IV 02/05/25 07:45 02/06/25 03:29 4 MLS/HR Cefepime HCl 50 ml @ 12.5 mls/hr DAILY@1000 IV 02/06/25 10:00 02/06/25 11:13 12.5 MLS/HR Pantoprazole Sodium 40 mg DAILY IV 02/07/25 10:00 Enteral Nutritional Formula 1,000 ml 30ML/HR GT 02/06/25 11:30 Hydralazine HCl 10 mg Q6HP PRN IV 02/06/25 17:30 02/06/25 19:54 10 MG Heparin Sodium/ Dextrose 250 ml @ 6 mls/hr Q24H IV 02/06/25 19:30 Examination Gen - no pallor, no icterus, no edema . Skin - Patients skin is warm and dry. HEENT - normocephalic, atraumatic, pupils fixed Neck - no JVD Pulmonary - B/L equal air entry, no wheezing, no stridor. cardiovascular - regular S1,S2 heard, no added sounds, no murmurs heard. peripheral pulses normal radial 2+, pedal 2+. GI - soft abdomen. Bowel sounds hypoactive Neurological - patient is on mechanical ventilation, no sedation, pupils dilated and fixed, no response to pain, absent gag reflex laboratory and microbiology Laboratory Tests 02/06/25 02:32 Test 02/06/25 02:32 Range/Units Serum Glucose 105 74-106 mg/dL Microbiology Date/Time Source Procedure Growth Status 02/03/25 08:40 Nose MRSA Screen - Final Methicillin Resistant S.aureus Complete 02/03/25 05:33 Urine - Cancino Port Urine Culture - Final Complete 02/02/25 22:56 Blood Blood Culture - Preliminary Resulted 02/02/25 22:45 Sputum Gram Stain - Final Complete 02/02/25 22:45 Sputum Respiratory Culture - Final Complete Problem List/Assessment/Plan Problem List/Assessment/Plan Neurology Acute hypoxic encephalopathy status post cardiopulmonary arrest - on mechanical ventilation - head CT showed supratentorial and infratentorial diffuse brain edema Cardiovascular Cardiopulmonary arrest s/p ROSC NSTEMI likely type 1 Arrhythmia, pulseless VT Shock likely cardiogenic/septic Acute on chronic diastolic heart failure Moderate pulmonary hypertension Left popliteal vein DVT - off vasopressors - on heparin drip - echocardiogram showed LVEF 50%, mild LVH with mild LV diastolic dysfunction with moderate degree pulmonary hypertension with RVSP of 46 mmHg Respiratory Bilateral pulmonary edema, improving - Minimal ventilator settings peep 5, FiO2 30%, tidal volume 450 - CXR - on Bumex drip Nephrology ZION on CKD likely due to VMN due to shock Severe Hypokalemia, resolved - urine output improving on Bumex drip - worsening kidney function - monitoring electrolytes GI Shock liver - LFTs improving Infectious disease MRSA nares Possible pneumonia due to gram +/- bacteria Possible Septic shock - on vancomycin and cefepime Right femoral CVC inserted on 02/02 Cancino's inserted on 02/02 Goals of care discussed with the patient daughter Janee and patient's sister . They were explained about the findings on the CT head of diffuse brain edema and that the patient has minimal chances of recovery. After a long discussion they have decided to keep the patient's status as full code as of now until they decide further. Code status: Full code Critical care time spent excluding procedures and including dw family- children and sister : 81 mins Plan discussed with Dr. Forbes Plan discussed with: Daughter (janee), Other (sister, RN Phyllis) My Orders My Orders Orders - BRANDY HERNANDEZ RESIDENT Procedure Category Date Status Time Chest Portable XY 02/06/25 Resulted 07:56 Abg W/ Co-Ox RT 02/06/25 Logged 07:56 Blood Culture LANA 02/06/25 In Process 11:28 Pantoprazole PHA 02/07/25 In Process (Protonix) 10:00 Nutritional PHA 02/06/25 In Process Supplements (Jevity 11:30 Hydralazine Injection PHA 02/06/25 In Process (Apresoline Inject 17:30 Complete Blood Count LAB 02/07/25 Verified 04:00 Comprehensive LAB 02/07/25 Verified Metabolic Panel 04:00 Chest Xray 1 View XY 02/07/25 Logged 04:00 Abg W/ Co-Ox RT 02/07/25 Logged 04:00 Dietary Evaluation Review Comments: Nutrition Recommendation: 1) TF Jevity 1.2Cal @ 50ml/hr x 24hr (goal) along with Pro-stat 1 pk daily. Start @ 20ml/hr, increase 10ml/hr Q4H until goal is reached. TF @ goal volume along with Pro-Stat provide 1540 kcal (100% energy needs), 82 gm protein (100% protein needs), 968 ml free water. 2) Water flush 100ml Q4H if allowed, adjust PRN 3) TPN if NPO >7 days 4) Monitor NPO status, lab values, wt trend, I/O Expected Outcomes/Goals: Lab values to improve Fu 2-3 days Date of Service: Feb 06, 2025 Billing Provider: NETTIE FORBES MD Common Visit Codes: 52658-[id number] CARE 30-74 MIN, [id number] CARE-EACH +30MIN BRANDY HERNANDEZ RESIDENT Feb 06, 2025 20:29 NETTIE FORBES MD Feb 07, 2025 12:10
[2025-02-06] MEDS: Jevity 1.2 Cal/Fiber 1 Liter GT SCH (21:08)
[2025-02-07] VITALS (104 sets, daily range): BP systolic 115–167; BP diastolic 75–107; PULSE 72–97; RESP 15–25; TEMP 97.2–99; O2SAT 97–100
--- NOTE | 2025-02-07 00:09 | DVHPN2 ---
Progress Note - Dictate Date Seen: Feb 06, 2025 Medical Necessity Reason Pt with a Central, PICC or Fol: Yes The following are medically ne: Central Line, Cancino Catheter Subjective Patient was seen and evaluated in follow up in the ICU. Patient is intubated and sedated on ventilator. 30% FiO2. She is nonresponsive to stroke painful stimuli, her pupils are equal round, but are a very small. Patient remains on heparin drip. WBC increased to 22.3. BUN 93, Gaming Investigator 4.54. vital signs Vital Sign Date Time Temp Pulse Resp B/P (MAP) Pulse Ox O2 Delivery O2 Flow Rate FiO2 02/06/25 23:15 97.9 89 23 123/83 (96) 100 208.2 02/06/25 22:00 30 02/06/25 22:00 Mechanical Ventilator+ Total Intake and Output 02/06/25 02/06/25 02/07/25 15:00 23:00 07:00 Intake Total 107.0 ml 72 ml Output Total 1150 ml Balance 107.0 ml -1078 ml medications Current Medications Medications Dose Ordered Sig/Abelardo Route Start Time Stop Time Status Last Admin Dose Admin Vancomycin HCl 0 ml @ 0 mls/hr UD IV 02/03/25 03:00 Dopamine HCl/ Dextrose 250 ml @ 9.781 mls/ hr Q24H IV 02/03/25 06:15 02/03/25 19:21 3.912 MLS/HR Vasopressin 20 units/Sodium Chloride 100 ml @ 9 mls/hr Q11H7M IV 02/03/25 06:15 02/05/25 09:15 9 MLS/HR Phenylephrine HCl 80 mg/Sodium Chloride 250 ml @ 7.5 mls/hr Q24H IV 02/03/25 08:00 02/03/25 15:38 29.063 MLS/HR Norepinephrine Bitartrate 32 mg/ Sodium Chloride 250 ml @ 0.938 mls/ hr Q24H IV 02/03/25 08:00 02/04/25 05:04 2.813 MLS/HR Epinephrine HCl 16 mg/Dextrose 250 ml @ 1.875 mls/ hr Q24H IV 02/03/25 08:00 02/03/25 09:11 9.375 MLS/HR Mupirocin 1 applic BID EACHNOSTRI 02/03/25 22:00 02/08/25 21:59 02/06/25 22:00 1 APPLIC Bumetanide 25 mg/ Miscellaneous 100 ml @ 4 mls/hr Q24H IV 02/05/25 07:45 02/06/25 03:29 4 MLS/HR Cefepime HCl 50 ml @ 12.5 mls/hr DAILY@1000 IV 02/06/25 10:00 02/06/25 11:13 12.5 MLS/HR Pantoprazole Sodium 40 mg DAILY IV 02/07/25 10:00 Enteral Nutritional Formula 1,000 ml 30ML/HR GT 02/06/25 11:30 02/06/25 21:08 1,000 ML Hydralazine HCl 10 mg Q6HP PRN IV 02/06/25 17:30 02/06/25 19:54 10 MG Heparin Sodium/ Dextrose 250 ml @ 6 mls/hr Q24H IV 02/06/25 19:30 objective GENERAL: Ill appearing, intubated on ventilator. EYES: PERRL, EOMI. Anicteric. HENT: Moist mucous membranes. LUNGS: Decreased breath sounds. CARDIOVASCULAR: Irregular rate and rhythm. ABDOMEN: Soft, nontender and nondistended. EXTREMITIES: Trace edema. SKIN: Bilateral feet are mottled. laboratory and microbiology Laboratory Tests 02/06/25 02:32 Test 02/06/25 02:32 Range/Units Serum Glucose 105 74-106 mg/dL Problem List Cardiopulmonary arrest s/p CPR with return of spontaneous circulation. NSTEMI. Rule out structural heart disease. Prolonged QTc interval. Septic shock. Hypokalemia. Acute kidney injury. Transaminitis. Polysubstance abuse. Assessment/Plan Continued all current supportive medical care. Diuretics with Bumex. IV antibiotics as ordered. Dopamine drip. Heparin drip per pharmacy. Vasopressors for hemodynamic support. Additional plan as per the hospital course. Critical care time of 45 minutes provided to include time spent evaluation of patient at bedside, when appropriate patient/family education for diagnosis, treatment plan, review of pertinent medical information and discussion of care with specialty providers and PCP. Mechanical ventilator parameters, treatment and adjustments have personally been reviewed by me and treatment plan by tray server has also been reviewed. Dietary Evaluation Review Comments: Nutrition Recommendation: 1) TF Jevity 1.2Cal @ 50ml/hr x 24hr (goal) along with Pro-stat 1 pk daily. Start @ 20ml/hr, increase 10ml/hr Q4H until goal is reached. TF @ goal volume along with Pro-Stat provide 1540 kcal (100% energy needs), 82 gm protein (100% protein needs), 968 ml free water. 2) Water flush 100ml Q4H if allowed, adjust PRN 3) TPN if NPO >7 days 4) Monitor NPO status, lab values, wt trend, I/O Expected Outcomes/Goals: Lab values to improve Fu 2-3 days Plan discussed with: Other SKYE GONZALES MD Feb 07, 2025 00:09
[2025-02-07 03:46] LABS: Hematocrit 33.9 % (36.0-46.0); Hemoglobin 11.4 g/dL (12.2-16.2); Mean Corpuscular Hemoglobin 29.2 pg (28.0-32.0); Mean Corpuscular Volume 86.5 fL (80.0-100.0); Nucleated Red Blood Cells % 0.3 %
[2025-02-07 03:58] LABS: Anion Gap 17 (5-15); BUN/Creatinine Ratio 20.5 (10.0-20.0); Bilirubin, Total 0.4 mg/dL (0.2-1.0); Carbon Dioxide 21 mmol/L (20-31); Chloride 107 mmol/L (98-107); Glucose 105 mg/dL (74-106); Potassium 3.7 mmol/L (3.5-5.1)
[2025-02-07 04:04] LABS: Alanine Aminotransferase 138 U/L (7-40); Albumin 2.8 g/dL (3.2-4.8); Alkaline Phosphatase 167 U/L (46-116); Calcium 6.4 mg/dL (8.7-10.4); Sodium 145 mmol/L (136-145); Total Protein 4.9 g/dL (5.7-8.2)
[2025-02-07 04:05] LABS: Blood Urea Nitrogen 97 mg/dL (9-23)
--- NOTE | 2025-02-07 05:24 | DVH ---
CHEST RADIOGRAPH Indication: ob vent Technique: Single frontal view of the chest was obtained COMPARISON: XY CHEST PORTABLE on DOS: 02/06/25, XY CHEST PORTABLE on DOS: 02/05/25, XY CHEST PORTABLE o n DOS: 02/04/25, XY CHEST PORTABLE on DOS: 02/04/25, XY CHEST XRAY 1 VIEW on DOS: 02/04/25 FINDINGS: Lines and Tubes: None Lungs: Stable chronic appearing bilateral interstitial pulmonary markings. No evidence of focal conso lidation. Pleura: No effusion. No pneumothorax. Cardiomediastinal contours: Unremarkable Bones: Unremarkable IMPRESSION: 1. No acute disease. Stable chronic appearing bilateral interstitial pulmonary markings. 2. Lines and tubes unchanged.
[2025-02-07 06:50] LABS: Base Excess 2.0 mmol/L (-2.0-3.0)
[2025-02-07 09:31] LABS: INR 1.55 (0.9-1.15); Partial Thromboplastin Time 56.9 SEC (24.5-34.5); Prothrombin Time 15.7 sec (9.3-11.8)
--- NOTE | 2025-02-07 09:48 | CONS ---
Pharmacy Clinical Information: HEPARIN DRIP, ACS PROTOCOL @0840 APTT 56.9 - NO BOLUS, NO CHANGE NEXT APTT DRAW SCHEDULED @1500 PER RX PROTOCOL CONFIRMED AND READ BACK WITH ARNIE WETS PHARMACIST Feb 07, 2025 09:47
[2025-02-07] MEDS: PANTOPRAZOLE 40 MG/10 ML VIAL INJ IV SCH (09:51)
--- NOTE | 2025-02-07 10:42 | DVHPN2 ---
Progress Note - Dictate Date Seen: Feb 07, 2025 Medical Necessity Reason Pt with a Central, PICC or Fol: Yes The following are medically ne: Central Line, Cancino Catheter Subjective Mr. Isabel is a 54 years old right-handed female with a history of hepatitis- C, she was brought to the [facility] on 02/02/2025 with a chief complaint of cardiopulmonary arrest. I have seen and examined the patient, I have discussed with her nurse. The case was discussed with Dr. Prasad yesterday afternoon and this morning She is nonresponsive to stroke painful stimuli, her pupils are equal round, nonresponsive, around 2 mm. No brainstem reflexes Urinalysis, 02/03/2025: 24, urine leukocyte esterase: Negative UDS, 02/03/2025: Fentanyl, amphetamine Plasma alcohol, 02/02/2025: 3.1 ABG, 02/03/2025: Metabolic acidosis WBC/HGB/PLT/MCV, 02/05/2025: 17.4/12.9/261/85.8 PT/INR/APTT, 02/02/2025: 11.3/1.07/, 02/03/2025: 11.7/1.12/38.5, 02/03/2025: 16.1/1.59/54.1 K, 02/02/2025: 2.4, 2, 2.1, 02/03/2025: 2, 2.3 BUN/CR, 02/02/2025: 25/1.56, 02/05/2025, 68/3.64 HGB A1c, 02/03/2025: 501 TBI/AST/ALT/AP, 02/02/2025: 0.4/117/60/83, 02/05/2025: 0.12/2196/519/128 Troponin one high sensitivity, 02/02/2025: 316, 3496, 02/03/2025: 287[address] CT head, 02/02/2025: No acute intracranial process CT head, 02/06/2025: There is supratentorial and infratentorial diffuse brain edema. vital signs Vital Sign Date Time Temp Pulse Resp B/P (MAP) Pulse Ox O2 Delivery O2 Flow Rate FiO2 02/07/25 09:48 91 22 135/92 (106) 100 30 02/07/25 08:00 Mechanical Ventilator+ 02/07/25 07:15 98.6 209.5 Total Intake and Output 02/06/25 02/06/25 02/07/25 15:00 23:00 07:00 Intake Total 107.0 ml 72 ml 200 ml Output Total 1150 ml 925 ml Balance 107.0 ml -1078 ml -725 ml medications Current Medications Medications Dose Ordered Sig/Abelardo Route Start Time Stop Time Status Last Admin Dose Admin Vancomycin HCl 0 ml @ 0 mls/hr UD IV 02/03/25 03:00 Dopamine HCl/ Dextrose 250 ml @ 9.781 mls/ hr Q24H IV 02/03/25 06:15 02/03/25 19:21 3.912 MLS/HR Vasopressin 20 units/Sodium Chloride 100 ml @ 9 mls/hr Q11H7M IV 02/03/25 06:15 02/05/25 09:15 9 MLS/HR Phenylephrine HCl 80 mg/Sodium Chloride 250 ml @ 7.5 mls/hr Q24H IV 02/03/25 08:00 02/03/25 15:38 29.063 MLS/HR Norepinephrine Bitartrate 32 mg/ Sodium Chloride 250 ml @ 0.938 mls/ hr Q24H IV 02/03/25 08:00 02/04/25 05:04 2.813 MLS/HR Epinephrine HCl 16 mg/Dextrose 250 ml @ 1.875 mls/ hr Q24H IV 02/03/25 08:00 02/03/25 09:11 9.375 MLS/HR Mupirocin 1 applic BID EACHNOSTRI 02/03/25 22:00 02/08/25 21:59 02/06/25 22:00 1 APPLIC Bumetanide 25 mg/ Miscellaneous 100 ml @ 4 mls/hr Q24H IV 02/05/25 07:45 02/06/25 03:29 4 MLS/HR Cefepime HCl 50 ml @ 12.5 mls/hr DAILY@1000 IV 02/06/25 10:00 02/06/25 11:13 12.5 MLS/HR Pantoprazole Sodium 40 mg DAILY IV 02/07/25 10:00 Enteral Nutritional Formula 1,000 ml 30ML/HR GT 02/06/25 11:30 02/06/25 21:08 1,000 ML Hydralazine HCl 10 mg Q6HP PRN IV 02/06/25 17:30 02/06/25 19:54 10 MG Heparin Sodium/ Dextrose 250 ml @ 6 mls/hr Q24H IV 02/06/25 19:30 objective The patient is well-nourished and well-developed with no distress. The patient is intubated MENTAL STATUS: Substitute CRANIAL NERVES: Pupils are equal, round and slightly reactive, very small. There are no corneal reflexes and no doll's eyes phenomenon. No signs of facial weakness. There are no gagging or coughing reflexes SENSATION: No responses to pain stimuli. MOTOR: Normal tone in the upper and lower extremity. Normal muscle bulk. No fasciculations. No spontaneous movement. REFLEXES: Deep tendon reflexes are symmetrical. No pathological reflexes. CEREBELLAR/COORDINATION: Deferred GAIT/STATION: deferred. laboratory and microbiology Laboratory Tests 02/07/25 02:52 Test 02/07/25 02:52 Range/Units Serum Glucose 105 74-106 mg/dL Problem List Coma Hypoxic encephalopathy Metabolic encephalopathy Cardiopulmonary arrest/status post CPR Diffuse brain edema Acute respiratory failure Heart attack Anisocoria, intermittent Leukocytosis/rule out sepsis Poor prognosis for meaningful/overall recovery Assessment/Plan Monitoring Supportive treatment ICU care Stabilize vitals Respiratory support/vent management Oxygen IV antibiotics IV heparin drip GI prophylax Family to discuss about code status More recommendation per clinical course This medical document was created using an electronic medical record system with [email or web address] dictation system. Although this document has been carefully reviewed, there may still be some phonetic and typographical errors. These areas are purely typographical due to imperfections of the software programs, and do not reflect any compromise in the patient's medical care. Prognosis Guarded Dietary Evaluation Review Comments: Nutrition Recommendation: 1) TF Jevity 1.2Cal @ 50ml/hr x 24hr (goal) along with Pro-stat 1 pk daily. Start @ 20ml/hr, increase 10ml/hr Q4H until goal is reached. TF @ goal volume along with Pro-Stat provide 1540 kcal (100% energy needs), 82 gm protein (100% protein needs), 968 ml free water. 2) Water flush 100ml Q4H if allowed, adjust PRN 3) TPN if NPO >7 days 4) Monitor NPO status, lab values, wt trend, I/O Expected Outcomes/Goals: Lab values to improve Fu 2-3 days Plan discussed with: Other Critical Care Time(min): 30 ELISA STACY MD Feb 07, 2025 10:42
--- NOTE | 2025-02-07 11:42 | DVHPN2 ---
Progress Note Date Seen: Feb 07, 2025 Medical Necessity Reason Pt with a Central, PICC or Fol: Yes The following are medically ne: Central Line, Cancino Catheter Subjective Review of Systems: Deferred Objective vital signs Vital Sign Date Time Temp Pulse Resp B/P (MAP) Pulse Ox O2 Delivery O2 Flow Rate FiO2 02/07/25 11:04 89 22 133/89 (104) 100 30 02/07/25 10:00 Mechanical Ventilator+ 02/07/25 08:00 99.0 210.2 Total Intake and Output 02/06/25 02/06/25 02/07/25 15:00 23:00 07:00 Intake Total 107.0 ml 72 ml 200 ml Output Total 1150 ml 925 ml Balance 107.0 ml -1078 ml -725 ml medications Current Medications Medications Dose Ordered Sig/Abelardo Route Start Time Stop Time Status Last Admin Dose Admin Vancomycin HCl 0 ml @ 0 mls/hr UD IV 02/03/25 03:00 Dopamine HCl/ Dextrose 250 ml @ 9.781 mls/ hr Q24H IV 02/03/25 06:15 02/03/25 19:21 3.912 MLS/HR Vasopressin 20 units/Sodium Chloride 100 ml @ 9 mls/hr Q11H7M IV 02/03/25 06:15 02/05/25 09:15 9 MLS/HR Phenylephrine HCl 80 mg/Sodium Chloride 250 ml @ 7.5 mls/hr Q24H IV 02/03/25 08:00 02/03/25 15:38 29.063 MLS/HR Norepinephrine Bitartrate 32 mg/ Sodium Chloride 250 ml @ 0.938 mls/ hr Q24H IV 02/03/25 08:00 02/04/25 05:04 2.813 MLS/HR Epinephrine HCl 16 mg/Dextrose 250 ml @ 1.875 mls/ hr Q24H IV 02/03/25 08:00 02/03/25 09:11 9.375 MLS/HR Mupirocin 1 applic BID EACHNOSTRI 02/03/25 22:00 02/08/25 21:59 02/07/25 09:57 1 APPLIC Bumetanide 25 mg/ Miscellaneous 100 ml @ 4 mls/hr Q24H IV 02/05/25 07:45 02/06/25 03:29 4 MLS/HR Cefepime HCl 50 ml @ 12.5 mls/hr DAILY@1000 IV 02/06/25 10:00 02/07/25 09:52 12.5 MLS/HR Pantoprazole Sodium 40 mg DAILY IV 02/07/25 10:00 02/07/25 09:51 40 MG Enteral Nutritional Formula 1,000 ml 30ML/HR GT 02/06/25 11:30 02/06/25 21:08 1,000 ML Hydralazine HCl 10 mg Q6HP PRN IV 02/06/25 17:30 02/06/25 19:54 10 MG Heparin Sodium/ Dextrose 250 ml @ 6 mls/hr Q24H IV 02/06/25 19:30 02/07/25 10:47 6 MLS/HR laboratory and microbiology Laboratory Tests 02/07/25 02:52 Test 02/07/25 02:52 Range/Units Serum Glucose 105 74-106 mg/dL Microbiology Date/Time Source Procedure Growth Status 02/03/25 08:40 Nose MRSA Screen - Final Methicillin Resistant S.aureus Complete 02/03/25 05:33 Urine - Cancino Port Urine Culture - Final Complete 02/02/25 22:56 Blood Blood Culture - Preliminary Resulted 02/02/25 22:45 Sputum Gram Stain - Final Complete 02/02/25 22:45 Sputum Respiratory Culture - Final Complete Problem List/Assessment/Plan Problem List/Assessment/Plan Acute kidney injury likely in the setting of shock acute kidney injury likely ATN in the setting Of shock polysubstance abuse suspected drug overdose Cardiac arrest status post CPR Ventilator-dependent hypoxic respiratory failure Shock Lactic acidosis Hypokalemia CT head shows cerebral edema Recommendations rest of care per primary Bumex drip will reduce rate And monitor renal function closely // not a candidate for MACHINE PLASTER MIXER detention Strict Is&Os no gag or cough reflexes per RN Grave prognosis Consider comfort care, advance directive discussions Plan discussed with: Other Dietary Evaluation Review Comments: Nutrition Recommendation: 1) TF Jevity 1.2Cal @ 50ml/hr x 24hr (goal) along with Pro-stat 1 pk daily. Start @ 20ml/hr, increase 10ml/hr Q4H until goal is reached. TF @ goal volume along with Pro-Stat provide 1540 kcal (100% energy needs), 82 gm protein (100% protein needs), 968 ml free water. 2) Water flush 100ml Q4H if allowed, adjust PRN 3) TPN if NPO >7 days 4) Monitor NPO status, lab values, wt trend, I/O Expected Outcomes/Goals: Lab values to improve Fu 2-3 days MARKO PETERS MD Feb 07, 2025 11:42
[2025-02-07] MEDS: VANCOMYCIN 500mg/100mL PREMIX or KIT IV ONE (15:15)
[2025-02-07 15:45] LABS: INR 1.58 (0.9-1.15); Prothrombin Time 16.0 sec (9.3-11.8)
[2025-02-07 15:51] LABS: Partial Thromboplastin Time 72.0 SEC (24.5-34.5)
--- NOTE | 2025-02-07 16:01 | CONS ---
Pharmacy Clinical Information: HEPARIN DRIP, ACS PROTOCOL @15:06 APTT 72 - NO BOLUS / NO CHANGE NEXT APTT DRAW SCHEDULED 02/08/25 @0500 PER RX PROTOCOL CONFIRMED AND READ BACK [facility] Feb 07, 2025 16:01
[2025-02-07] MEDS: MORPHINE SULFATE INJ 2 MG/ml SYRG IV PRN (17:34)
--- NOTE | 2025-02-07 18:14 | DVHPNRES ---
Progress Note Date Seen: Feb 07, 2025 Resident Creating Document: BRANDY HERNANDEZ RESIDENT Medical Necessity Reason Pt with a Central, PICC or Fol: Yes The following are medically ne: Central Line, Cancino Catheter Subjective Review of Systems 02/07 Patient seen and examined at the bedside, pupils fixed and dilated, no gag reflex, dolls eye reflex absent. After discussion with the patient's family she was made comfort measures and was terminally weaned Objective vital signs Vital Sign Date Time Temp Pulse Resp B/P (MAP) Pulse Ox O2 Delivery O2 Flow Rate FiO2 02/07/25 17:34 86 20 133/87 02/07/25 16:00 100 Mechanical Ventilator+ 30 30 02/07/25 12:00 98.4 98.4 Total Intake and Output 02/06/25 02/06/25 02/07/25 15:00 23:00 07:00 Intake Total 107.0 ml 72 ml 200 ml Output Total 1150 ml 925 ml Balance 107.0 ml -1078 ml -725 ml medications Current Medications Medications Dose Ordered Sig/Abelardo Route Start Time Stop Time Status Last Admin Dose Admin Morphine Sulfate 2 mg Q1HP PRN IV 02/07/25 16:15 02/07/25 17:34 2 MG Lorazepam 1 mg Q2HP PRN IV 02/07/25 16:15 Examination Gen - no pallor, no icterus, no edema . Skin - Patients skin is warm and dry. HEENT - normocephalic, atraumatic, pupils fixed Neck - no JVD Pulmonary - B/L equal air entry, no wheezing, no stridor. cardiovascular - regular S1,S2 heard, no added sounds, no murmurs heard. peripheral pulses normal radial 2+, pedal 2+. GI - soft abdomen. Bowel sounds hypoactive Neurological - patient is on mechanical ventilation, no sedation, pupils dilated and fixed, no response to pain, absent gag reflex laboratory and microbiology Laboratory Tests 02/07/25 02:52 Test 02/07/25 02:52 Range/Units Serum Glucose 105 74-106 mg/dL Microbiology Date/Time Source Procedure Growth Status 02/06/25 15:15 Blood Blood Culture - Preliminary NO GROWTH AFTER 24 HOURS OF INCUBATION. Resulted 02/03/25 08:40 Nose MRSA Screen - Final Methicillin Resistant S.aureus Complete 02/03/25 05:33 Urine - Cancino Port Urine Culture - Final Complete 02/02/25 22:45 Sputum Gram Stain - Final Complete 02/02/25 22:45 Sputum Respiratory Culture - Final Complete Problem List/Assessment/Plan Problem List/Assessment/Plan Neurology Acute hypoxic encephalopathy status post cardiopulmonary arrest - comfort measures Cardiovascular Cardiopulmonary arrest s/p ROSC NSTEMI likely type 1 Arrhythmia, pulseless VT Shock likely cardiogenic/septic Acute on chronic diastolic heart failure Moderate pulmonary hypertension Left popliteal vein DVT - comfort measures Respiratory Bilateral pulmonary edema, improving - comfort measures Nephrology ZION on CKD likely due to VMN due to shock Severe Hypokalemia, resolved - comfort measures GI Shock liver - comfort measures Infectious disease MRSA nares Possible pneumonia due to gram +/- bacteria Possible Septic shock - comfort measures Right femoral CVC inserted on 02/02 Cancino's inserted on 02/02 Goals of care discussed with the patient daughter Cindy. After a long discussion and explaining that chances of meaningful recovery are minimal, family decided to terminally wean off the patient. Patient is made comfort measures Code status: Comfort measures Critical care time spent excluding procedures including discussion with the family: [address] Forbes Plan discussed with: Daughter, Other (RN Lilly) My Orders My Orders Orders - BRANDY HERNANDEZ RESIDENT Procedure Category Date Status Time Morphine Sulfate PHA 02/07/25 In Process Injection 16:15 Lorazepam 2mg/Ml Inj PHA 02/07/25 In Process (Ativan Inj) 16:15 Code Status CODE 02/07/25 Transmitted 16:11 Rt To Terminal Wean Pt ORDERS 02/07/25 Transmitted 17:17 Dietary Evaluation Review Comments: Nutrition Recommendation: 1) TF Jevity 1.2Cal @ 50ml/hr x 24hr (goal) along with Pro-stat 1 pk daily. Start @ 20ml/hr, increase 10ml/hr Q4H until goal is reached. TF @ goal volume along with Pro-Stat provide 1540 kcal (100% energy needs), 82 gm protein (100% protein needs), 968 ml free water. 2) Water flush 100ml Q4H if allowed, adjust PRN 3) TPN if NPO >7 days 4) Monitor NPO status, lab values, wt trend, I/O Expected Outcomes/Goals: Lab values to improve Fu 2-3 days Date of Service: Feb 07, 2025 Billing Provider: NETTIE FORBES MD Common Visit Codes: 89177-[id number] CARE 30-74 MIN, 85357-[id number] CARE-EACH +30MIN BRANDY HERNANDEZ RESIDENT Feb 07, 2025 18:14 NETTIE FORBES MD Feb 08, 2025 11:13
[2025-02-07] MEDS: LORazepam 2MG/ML-1ML VIAL IV PRN (19:33)
--- NOTE | 2025-02-07 22:05 | DVHPN2 ---
Progress Note - Dictate Date Seen: Feb 07, 2025 Medical Necessity Reason Pt with a Central, PICC or Fol: Yes The following are medically ne: Central Line, Cancino Catheter Subjective Patient was seen and evaluated in follow up in the ICU. Patient was compassionately extubated today and placed on comfort measures. Patient placed on 2 LPM NC. Patient is unresponsive, pupils fixed and dilated, no gag reflex, dolls eye reflex absent. vital signs Vital Sign Date Time Temp Pulse Resp B/P (MAP) Pulse Ox O2 Delivery O2 Flow Rate FiO2 02/07/25 21:33 80 18 139/86 02/07/25 20:00 100 Mechanical Ventilator+ 30 30 02/07/25 20:00 97.3 97.3 02/07/25 20:00 1 Total Intake and Output 02/06/25 02/06/25 02/07/25 15:00 23:00 07:00 Intake Total 107.0 ml 72 ml 200 ml Output Total 1150 ml 925 ml Balance 107.0 ml -1078 ml -725 ml medications Current Medications Medications Dose Ordered Sig/Abelardo Route Start Time Stop Time Status Last Admin Dose Admin Morphine Sulfate 2 mg Q1HP PRN IV 02/07/25 16:15 02/07/25 21:33 2 MG Lorazepam 1 mg Q2HP PRN IV 02/07/25 16:15 02/07/25 21:34 1 MG objective GENERAL: Ill appearing. EYES: PERRL, EOMI. Anicteric. HENT: Moist mucous membranes. LUNGS: Decreased breath sounds. CARDIOVASCULAR: Irregular rate and rhythm. ABDOMEN: Soft, nontender and nondistended. EXTREMITIES: Trace edema. SKIN: Bilateral feet are mottled. NEURO: Unresponsive, pupils dilated and fixed, no response to pain, absent gag reflex. laboratory and microbiology Laboratory Tests 02/07/25 02:52 Test 02/07/25 02:52 Range/Units Serum Glucose 105 74-106 mg/dL Problem List Cardiopulmonary arrest s/p CPR with return of spontaneous circulation. NSTEMI. Rule out structural heart disease. Prolonged QTc interval. Septic shock. Hypokalemia. Acute kidney injury. Transaminitis. Polysubstance abuse. Assessment/Plan Continued all current supportive medical care. Transition to comfort care. Additional plan as per the hospital course. Critical care time of 45 minutes provided to include time spent evaluation of patient at bedside, when appropriate patient/family education for diagnosis, treatment plan, review of pertinent medical information and discussion of care with specialty providers and PCP. Dietary Evaluation Review Comments: Nutrition Recommendation: 1) TF Jevity 1.2Cal @ 50ml/hr x 24hr (goal) along with Pro-stat 1 pk daily. Start @ 20ml/hr, increase 10ml/hr Q4H until goal is reached. TF @ goal volume along with Pro-Stat provide 1540 kcal (100% energy needs), 82 gm protein (100% protein needs), 968 ml free water. 2) Water flush 100ml Q4H if allowed, adjust PRN 3) TPN if NPO >7 days 4) Monitor NPO status, lab values, wt trend, I/O Expected Outcomes/Goals: Lab values to improve Fu 2-3 days Plan discussed with: SKYE Alonso MD Feb 07, 2025 22:05
[2025-02-08] VITALS (59 sets, daily range): BP systolic 74–130; BP diastolic 43–85; PULSE 53–79; RESP 10–32; TEMP 96–97.5; O2SAT 97–100
--- NOTE | 2025-02-08 10:26 | DVHPN2 ---
Progress Note - Dictate Date Seen: Feb 08, 2025 Medical Necessity Reason Pt with a Central, PICC or Fol: Yes The following are medically ne: Central Line, Cancino Catheter Subjective Mr. Isabel is a 54 years old right-handed female with a history of hepatitis- C, [facility] with a chief complaint of cardiopulmonary arrest. I have seen and examined the patient, I have discussed with her nurse and two of her son in the room. She stopped post terminal wean Urinalysis, 02/03/2025: 24, urine leukocyte esterase: Negative UDS, 02/03/2025: Fentanyl, amphetamine Plasma alcohol, 02/02/2025: 3.1 ABG, 02/03/2025: Metabolic acidosis WBC/HGB/PLT/MCV, 02/05/2025: 17.4/12.9/261/85.8 PT/INR/APTT, 02/02/2025: 11.3/1.07/, 02/03/2025: 11.7/1.12/38.5, 02/03/2025: 16.1/1.59/54.1 K, 02/02/2025: 2.4, 2, 2.1, 02/03/2025: 2, 2.3 BUN/CR, 02/02/2025: 25/1.56, 02/05/2025, 68/3.64 HGB A1c, 02/03/2025: 501 TBI/AST/ALT/AP, 02/02/2025: 0.4/117/60/83, 02/05/2025: 0.12/2196/519/128 Troponin one high sensitivity, 02/02/2025: 316, 3496, 02/03/2025: 09[address] CT head, 02/02/2025: No acute intracranial process CT head, 02/06/2025: There is supratentorial and infratentorial diffuse brain edema. vital signs Vital Sign Date Time Temp Pulse Resp B/P (MAP) Pulse Ox O2 Delivery O2 Flow Rate FiO2 02/08/25 09:59 68 22 104/71 02/08/25 04:45 100 02/07/25 20:00 Mechanical Ventilator+ 30 30 02/07/25 20:00 97.3 97.3 02/07/25 20:00 1 Total Intake and Output 02/07/25 02/07/25 02/08/25 15:00 23:00 07:00 Intake Total 240 ml Output Total 1350 ml 1525 ml Balance -1110 ml -1525 ml medications Current Medications Medications Dose Ordered Sig/Abelardo Route Start Time Stop Time Status Last Admin Dose Admin Morphine Sulfate 2 mg Q1HP PRN IV 02/07/25 16:15 02/08/25 09:59 2 MG Lorazepam 1 mg Q2HP PRN IV 02/07/25 16:15 02/08/25 09:59 1 MG objective The patient is well-nourished and well-developed with no distress. MENTAL STATUS: Substitute CRANIAL NERVES: Pupils are equal, round and slightly reactive, very small. There are no corneal reflexes and no doll's eyes phenomenon. No signs of facial weakness. SENSATION: No responses to pain stimuli. MOTOR: Normal tone in the upper and lower extremity. Normal muscle bulk. No fasciculations. No spontaneous movement. REFLEXES: Deep tendon reflexes are symmetrical. No pathological reflexes. CEREBELLAR/COORDINATION: Deferred GAIT/STATION: deferred. laboratory and microbiology Laboratory Tests 02/07/25 02:52 Test 02/07/25 02:52 Range/Units Serum Glucose 105 74-106 mg/dL Problem List Coma Hypoxic encephalopathy Metabolic encephalopathy Cardiopulmonary arrest/status post CPR Diffuse brain edema Acute respiratory failure Heart attack Anisocoria, intermittent Leukocytosis/rule out sepsis Poor prognosis for meaningful/overall recovery Assessment/Plan Monitoring Supportive treatment Comfort care Neurology has no more offer, and will sign off, thank you very much for giving the opportunity to care for this pleasant lady This medical document was created using an electronic medical record system with [employer] dictation system. Although this document has been carefully reviewed, there may still be some phonetic and typographical errors. These areas are purely typographical due to imperfections of the software programs, and do not reflect any compromise in the patient's medical care. Prognosis guarded Dietary Evaluation Review Comments: Nutrition Recommendation: 1) TF Jevity 1.2Cal @ 50ml/hr x 24hr (goal) along with Pro-stat 1 pk daily. Start @ 20ml/hr, increase 10ml/hr Q4H until goal is reached. TF @ goal volume along with Pro-Stat provide 1540 kcal (100% energy needs), 82 gm protein (100% protein needs), 968 ml free water. 2) Water flush 100ml Q4H if allowed, adjust PRN 3) TPN if NPO >7 days 4) Monitor NPO status, lab values, wt trend, I/O Expected Outcomes/Goals: Lab values to improve Fu 2-3 days Plan discussed with: Yuriy Reyes QUANWEI MD Feb 08, 2025 10:26
--- NOTE | 2025-02-08 16:13 | DVHPNRES ---
Progress Note Date Seen: Feb 08, 2025 Resident Creating Document: BRANDY HERNANDEZ RESIDENT Medical Necessity Reason Pt with a Central, PICC or Fol: Yes The following are medically ne: Central Line, Cacnino Catheter Subjective Review of Systems 02/08 Patient seen and examined at the bedside. On comfort measures, no responds to verbal stimuli, sudden loud noise or painful stimulation. Patient has spontaneous breathing with rate is about 20-26 breaths per minute and maintaining oxygen saturation of more than 95% on room air. Objective vital signs Vital Sign Date Time Temp Pulse Resp B/P (MAP) Pulse Ox O2 Delivery O2 Flow Rate FiO2 02/08/25 15:00 72 25 118/76 (90) 100 02/08/25 12:00 96.0 96.0 02/08/25 08:00 Nasal Cannula* 1 24 Total Intake and Output 02/07/25 02/07/25 02/08/25 15:00 23:00 07:00 Intake Total 130.0 ml 460 ml Output Total 1350 ml 1525 ml Balance 130.0 ml -890 ml -1525 ml medications Current Medications Medications Dose Ordered Sig/Abelardo Route Start Time Stop Time Status Last Admin Dose Admin Morphine Sulfate 2 mg Q1HP PRN IV 02/07/25 16:15 02/08/25 12:33 2 MG Lorazepam 1 mg Q2HP PRN IV 02/07/25 16:15 02/08/25 12:32 1 MG Examination Gen - no pallor, no icterus, no edema . Skin - Patients skin is warm and dry. HEENT - normocephalic, atraumatic, pupils fixed Neck - no JVD Pulmonary - B/L equal air entry, no wheezing, no stridor. cardiovascular - regular S1,S2 heard, no added sounds, no murmurs heard. peripheral pulses normal radial 2+, pedal 2+. GI - soft abdomen. Bowel sounds hypoactive Neurological - patient is on mechanical ventilation, no sedation, pupils dilated and fixed, no response to pain, absent gag reflex laboratory and microbiology Laboratory Tests 02/07/25 02:52 Test 02/07/25 02:52 Range/Units Serum Glucose 105 74-106 mg/dL Microbiology Date/Time Source Procedure Growth Status 02/06/25 15:15 Blood Blood Culture - Preliminary NO GROWTH AFTER 48 HOURS OF INCUBATION. Resulted 02/03/25 08:40 Nose MRSA Screen - Final Methicillin Resistant S.aureus Complete 02/03/25 05:33 Urine - Cancino Port Urine Culture - Final Complete 02/02/25 22:45 Sputum Gram Stain - Final Complete 02/02/25 22:45 Sputum Respiratory Culture - Final Complete Problem List/Assessment/Plan Problem List/Assessment/Plan Neurology Acute hypoxic encephalopathy status post cardiopulmonary arrest - comfort measures Cardiovascular Cardiopulmonary arrest s/p ROSC NSTEMI likely type 1 Arrhythmia, pulseless VT Shock likely cardiogenic/septic Acute on chronic diastolic heart failure Moderate pulmonary hypertension Left popliteal vein DVT - comfort measures Respiratory Bilateral pulmonary edema, improving - comfort measures Nephrology ZION on CKD likely due to VMN due to shock Severe Hypokalemia, resolved - comfort measures GI Shock liver - comfort measures Infectious disease MRSA nares Possible pneumonia due to gram +/- bacteria Possible Septic shock - comfort measures Right femoral CVC inserted on 02/02 Cancino's inserted on 02/02 Goals of care discussed with the patient daughter Cindy. Daughter was explained about the patient's current condition and with the want to take her to hospice care at home. She wants to talk to the onsite case manager and will decide whether. Code status: Comfort measures time spent excluding procedures including discussion with the daughter: 57 mins Plan discussed with Dr. Forbes Plan discussed with: Daughter, Other (RN Lilly) My Orders My Orders Orders - BRANDY HERNANDEZ RESIDENT Procedure Category Date Status Time Morphine Sulfate PHA 02/07/25 In Process Injection 16:15 Lorazepam 2mg/Ml Inj PHA 02/07/25 In Process (Ativan Inj) 16:15 Code Status CODE 02/07/25 Transmitted 16:11 Rt To Terminal Wean Pt ORDERS 02/07/25 Transmitted 17:17 Transfer Orders XFER 02/07/25 Transmitted 19:16 Dietary Evaluation Review Comments: Nutrition Recommendation: 1) TF Jevity 1.2Cal @ 50ml/hr x 24hr (goal) along with Pro-stat 1 pk daily. Start @ 20ml/hr, increase 10ml/hr Q4H until goal is reached. TF @ goal volume along with Pro-Stat provide 1540 kcal (100% energy needs), 82 gm protein (100% protein needs), 968 ml free water. 2) Water flush 100ml Q4H if allowed, adjust PRN 3) TPN if NPO >7 days 4) Monitor NPO status, lab values, wt trend, I/O Expected Outcomes/Goals: Lab values to improve Fu 2-3 days Date of Service: Feb 08, 2025 Billing Provider: NETTIE FORBES MD Common Visit Codes: [id number] INP/OBS CARE(HIGH) Secondary Visit Codes: [id number] CARE PLAN 30 MINUTES BRANDY HERNANDEZ RESIDENT Feb 08, 2025 16:13 NETTIE FORBES MD Feb 09, 2025 10:46
[2025-02-08] MEDS ORDERED: CLINIMIX PER PHARMACY 0 ML IV SCH (21:30)
[2025-02-08] MEDS ORDERED: DEXTROSE (50%) 50ML SYRG IV SCH (22:00)
[2025-02-08] MEDS: AMINO ACID INFUSION IN D10W 1,000 ML IV SCH (22:44)
--- NOTE | 2025-02-08 23:22 | DVHPN2 ---
Progress Note - Dictate Date Seen: Feb 08, 2025 Medical Necessity Reason Pt with a Central, PICC or Fol: Yes The following are medically ne: Central Line, Cancino Catheter Subjective Patient was seen and evaluated in follow up in the ICU. Patient is on 1 LPM NC. Patient's son's are present at bedside. Patient is on comfort measures. vital signs Vital Sign Date Time Temp Pulse Resp B/P (MAP) Pulse Ox O2 Delivery O2 Flow Rate FiO2 02/08/25 13:30 71 20 110/69 (83) 98 02/08/25 12:00 96.0 96.0 02/08/25 08:00 Nasal Cannula* 1 24 Total Intake and Output 02/07/25 02/07/25 02/08/25 15:00 23:00 07:00 Intake Total 240 ml Output Total 1350 ml 1525 ml Balance -1110 ml -1525 ml medications Current Medications Medications Dose Ordered Sig/Abelardo Route Start Time Stop Time Status Last Admin Dose Admin Morphine Sulfate 2 mg Q1HP PRN IV 02/07/25 16:15 02/08/25 12:33 2 MG Lorazepam 1 mg Q2HP PRN IV 02/07/25 16:15 02/08/25 12:32 1 MG objective GENERAL: Ill appearing. EYES: PERRL, EOMI. Anicteric. HENT: Moist mucous membranes. LUNGS: Decreased breath sounds. CARDIOVASCULAR: Irregular rate and rhythm. ABDOMEN: Soft, nontender and nondistended. EXTREMITIES: Trace edema. SKIN: Bilateral feet are mottled. NEURO: Unresponsive, pupils dilated and fixed, no response to pain, absent gag reflex. laboratory and microbiology Laboratory Tests 02/07/25 02:52 Test 02/07/25 02:52 Range/Units Serum Glucose 105 74-106 mg/dL Problem List Cardiopulmonary arrest s/p CPR with return of spontaneous circulation. NSTEMI. Rule out structural heart disease. Prolonged QTc interval. Septic shock. Hypokalemia. Acute kidney injury. Transaminitis. Polysubstance abuse. Assessment/Plan Continued all current supportive medical care. Ativan. Morphine. Additional plan as per the hospital course. Critical care time of 45 minutes provided to include time spent evaluation of patient at bedside, when appropriate patient/family education for diagnosis, treatment plan, review of pertinent medical information and discussion of care with specialty providers and PCP. Dietary Evaluation Review Comments: Nutrition Recommendation: 1) TF Jevity 1.2Cal @ 50ml/hr x 24hr (goal) along with Pro-stat 1 pk daily. Start @ 20ml/hr, increase 10ml/hr Q4H until goal is reached. TF @ goal volume along with Pro-Stat provide 1540 kcal (100% energy needs), 82 gm protein (100% protein needs), 968 ml free water. 2) Water flush 100ml Q4H if allowed, adjust PRN 3) TPN if NPO >7 days 4) Monitor NPO status, lab values, wt trend, I/O Expected Outcomes/Goals: Lab values to improve Fu 2-3 days Plan discussed with: Other SKYE GONZALES MD Feb 08, 2025 14:03
[2025-02-09] VITALS (22 sets, daily range): BP systolic 113–135; BP diastolic 74–87; PULSE 71–96; RESP 10–96; TEMP 96.8–97.7; O2SAT 84–100
[2025-02-09] MEDS: InsuLIN REG 1unit/0.01ml Soln (100units/ml) SC SCH
[2025-02-09] MEDS: ACCU-CHEK COMFORT CURVE STRIP VI SCH (00:11)
[2025-02-09 03:49] LABS: Anion Gap 18 (5-15); BUN/Creatinine Ratio 21.2 (10.0-20.0); Carbon Dioxide 27 mmol/L (20-31); Chloride 101 mmol/L (98-107); Glucose 105 mg/dL (74-106); Potassium 4.8 mmol/L (3.5-5.1); Total Protein 5.8 g/dL (5.7-8.2)
[2025-02-09 04:22] LABS: Sodium 146 mmol/L (136-145)
[2025-02-09 04:24] LABS: Alanine Aminotransferase 42 U/L (7-40); Albumin 3.1 g/dL (3.2-4.8); Alkaline Phosphatase 138 U/L (46-116); Bilirubin, Total 0.2 mg/dL (0.2-1.0); Blood Urea Nitrogen 140 mg/dL (9-23); Calcium 7.9 mg/dL (8.7-10.4); Magnesium 2.9 mg/dL (1.6-2.6)
[2025-02-09 04:46] LABS: Triglycerides 133 mg/dL (< 150)
[2025-02-09 10:28] LABS: Hematocrit 37.5 % (36.0-46.0); Hemoglobin 12.3 g/dL (12.2-16.2); Mean Corpuscular Hemoglobin 28.4 pg (28.0-32.0); Mean Corpuscular Volume 87.0 fL (80.0-100.0)
[2025-02-09 11:27] LABS: Total Cells Counted 100.0 (100)
[2025-02-09 11:28] LABS: Anisocytosis Slight
[2025-02-09] MEDS ORDERED: Jevity 1.2 Cal/Fiber 1 Liter GT SCH (12:45)
[2025-02-09] MEDS ORDERED: CLINIMIX PER PHARMACY 0 ML IV SCH (13:45)
--- NOTE | 2025-02-09 17:24 | DVHPNRES ---
Progress Note Date Seen: Feb 09, 2025 Resident Creating Document: BRANDY HERNANDEZ RESIDENT Medical Necessity Reason Pt with a Central, PICC or Fol: Yes The following are medically ne: Central Line, Cancino Catheter Subjective Review of Systems 02/09 Patient seen and examined at the bedside. Overnight family decided to change the code status to do not intubate and they wanted everything else to be done. Patient has stable hemodynamics but no responds to verbal or painful stimulation. Objective vital signs Vital Sign Date Time Temp Pulse Resp B/P (MAP) Pulse Ox O2 Delivery O2 Flow Rate FiO2 02/09/25 16:00 96.8 81 13 127/81 (96) 98 96.8 02/09/25 08:00 Room Air* 0 21 Total Intake and Output 02/08/25 02/08/25 02/09/25 15:00 23:00 07:00 Intake Total 42 ml 336 ml Output Total 950 ml 750 ml Balance -908 ml -414 ml medications Current Medications Medications Dose Ordered Sig/Abelardo Route Start Time Stop Time Status Last Admin Dose Admin Morphine Sulfate 2 mg Q1HP PRN IV 02/07/25 16:15 02/08/25 12:33 2 MG Diagnostic Test (Pha) 1 strip Q6HR 02/09/25 00:00 02/09/25 12:12 1 STRIP Insulin Human Regular FOLLOW SLIDING SCALE Q6HR SC 02/09/25 00:00 02/09/25 12:12 2 UNITS Dextrose 50 ml UD IV 02/08/25 22:00 Enteral Nutritional Formula 1,000 ml 30ML/HR GT 02/09/25 12:45 Amino Acids 0 ml @ 0 mls/hr PER PHARMACY IV 02/09/25 13:45 Amino Acids/ Electrolytes/ Dextrose 1,000 ml @ 41 mls/hr DAILY@2200 IV 02/09/25 22:00 Examination Gen - no pallor, no icterus, no edema . Skin - Patients skin is warm and dry. HEENT - normocephalic, atraumatic, pupils fixed Neck - no JVD Pulmonary - B/L equal air entry, no wheezing, no stridor. cardiovascular - regular S1,S2 heard, no added sounds, no murmurs heard. peripheral pulses normal radial 2+, pedal 2+. GI - soft abdomen. Bowel sounds hypoactive Neurological - patient is on mechanical ventilation, no sedation, pupils dilated and fixed, no response to pain, absent gag reflex laboratory and microbiology Laboratory Tests 02/09/25 02:46 Test 02/09/25 02:46 Range/Units Serum Glucose 105 74-106 mg/dL Microbiology Date/Time Source Procedure Growth Status 02/06/25 15:15 Blood Blood Culture - Preliminary NO GROWTH AFTER 72 HOURS OF INCUBATION. Resulted 02/03/25 08:40 Nose MRSA Screen - Final Methicillin Resistant S.aureus Complete 02/03/25 05:33 Urine - Cancino Port Urine Culture - Final Complete 02/02/25 22:45 Sputum Gram Stain - Final Complete 02/02/25 22:45 Sputum Respiratory Culture - Final Complete Problem List/Assessment/Plan Problem List/Assessment/Plan Neurology Acute hypoxic encephalopathy status post cardiopulmonary arrest - on room air - head CT showed supratentorial and infratentorial diffuse brain edema Cardiovascular Cardiopulmonary arrest s/p ROSC NSTEMI likely type 1 Arrhythmia, pulseless VT Shock likely cardiogenic/septic Acute on chronic diastolic heart failure Moderate pulmonary hypertension Left popliteal vein DVT - echocardiogram showed LVEF 50%, mild LVH with mild LV diastolic dysfunction with moderate degree pulmonary hypertension with RVSP of 46 mmHg - stable hemodynamics Respiratory Bilateral pulmonary edema, improving - on room air Nephrology ZION on CKD likely due to VMN due to shock Severe Hypokalemia, resolved - nephrology on board - as the patient has poor prognosis given hypoxic/anoxic brain injury, with a plan to be decided by Nephrology and family GI Shock liver - improving Infectious disease MRSA nares - mupirocin Cancino's inserted on 02/02 Goals of care discussed with the patient daughter Cindy. Daughter wants the patient to get nutrition, does not want nutrition via the NG tube in wants to continue feeding parenterally. We will talk to renal case manager about further placement. Code status: [id number] time spent excluding procedures including discussion with the daughter: 53 mins Plan discussed with Dr. Forbes Plan discussed with: Daughter, Son, Other (MARLEN Carr) My Orders My Orders Orders - BRANDY HERNANDEZ RESIDENT Procedure Category Date Status Time Place Ng ORDERS 02/09/25 Transmitted 09:59 Place Ng ORDERS 02/09/25 Transmitted 10:17 Nutritional PHA 02/09/25 In Process Supplements (Jevity 12:45 Clinimix Per Pharmacy PHA 02/09/25 In Process 13:45 * Hotel Service Manager CONS 02/09/25 Transmitted Consult Amino Acid Infusion PHA 02/09/25 In Process In D10w (Clinimix 4. 22:00 Clinimix Per Pharmacy [place] 02/09/25 In Process 22:00 Comprehensive LAB 02/10/25 Verified Metabolic Panel 04:00 Magnesium LAB 02/10/25 Verified 04:00 Phosphorus LAB 02/10/25 Verified 04:00 Dietary Evaluation Review Comments: Nutrition Recommendation: 1) TF Jevity 1.2Cal @ 50ml/hr x 24hr (goal) along with Pro-stat 1 pk daily. Start @ 20ml/hr, increase 10ml/hr Q4H until goal is reached. TF @ goal volume along with Pro-Stat provide 1540 kcal (100% energy needs), 82 gm protein (100% protein needs), 968 ml free water. 2) Water flush 100ml Q4H if allowed, adjust PRN 3) TPN if NPO >7 days 4) Monitor NPO status, lab values, wt trend, I/O Expected Outcomes/Goals: Lab values to improve Fu 2-3 days Date of Service: Feb 09, 2025 Billing Provider: NETTIE FORBES MD Common Visit Codes: [id number] INP/OBS CARE(HIGH) Secondary Visit Codes: [id number] CARE PLAN 30 MINUTES BRANDY HERNANDEZ RESIDENT Feb 09, 2025 17:24 NETTIE FORBES MD Feb 11, 2025 11:54
--- NOTE | 2025-02-09 17:53 | DVHPN2 ---
Progress Note Date Seen: Feb 09, 2025 Medical Necessity Reason Pt with a Central, PICC or Fol: Yes The following are medically ne: Central Line, Cancino Catheter Subjective Review of Systems: Deferred Objective vital signs Vital Sign Date Time Temp Pulse Resp B/P (MAP) Pulse Ox O2 Delivery O2 Flow Rate FiO2 02/09/25 17:00 81 16 119/77 (91) 100 02/09/25 16:00 96.8 96.8 02/09/25 08:00 Room Air* 0 21 Total Intake and Output 02/08/25 02/08/25 02/09/25 15:00 23:00 07:00 Intake Total 42 ml 336 ml Output Total 950 ml 750 ml Balance -908 ml -414 ml medications Current Medications Medications Dose Ordered Sig/Abelardo Route Start Time Stop Time Status Last Admin Dose Admin Morphine Sulfate 2 mg Q1HP PRN IV 02/07/25 16:15 02/08/25 12:33 2 MG Diagnostic Test (Pha) 1 strip Q6HR 02/09/25 00:00 02/09/25 12:12 1 STRIP Insulin Human Regular FOLLOW SLIDING SCALE Q6HR SC 02/09/25 00:00 02/09/25 12:12 2 UNITS Dextrose 50 ml UD IV 02/08/25 22:00 Amino Acids 0 ml @ 0 mls/hr PER PHARMACY IV 02/09/25 13:45 Amino Acids/ Electrolytes/ Dextrose 1,000 ml @ 41 mls/hr DAILY@2200 IV 02/09/25 22:00 Examination: GENERAL:Abnormal, CVS:Normal, NEURO:Abnormal laboratory and microbiology Laboratory Tests 02/09/25 02:46 Test 02/09/25 02:46 Range/Units Serum Glucose 105 74-106 mg/dL Microbiology Date/Time Source Procedure Growth Status 02/06/25 15:15 Blood Blood Culture - Preliminary NO GROWTH AFTER 72 HOURS OF INCUBATION. Resulted 02/03/25 08:40 Nose MRSA Screen - Final Methicillin Resistant S.aureus Complete 02/03/25 05:33 Urine - Cancino Port Urine Culture - Final Complete 02/02/25 22:45 Sputum Gram Stain - Final Complete 02/02/25 22:45 Sputum Respiratory Culture - Final Complete Problem List/Assessment/Plan Problem List/Assessment/Plan Acute kidney injury likely in the setting of shock acute kidney injury likely ATN in the setting Of shock polysubstance abuse suspected drug overdose Cardiac arrest status post CPR Ventilator-dependent hypoxic respiratory failure extubated CT head shows diffuse cerebral edema Recommendations And monitor renal function closely // 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 SHe is not a candidate for outpatient dialysis. If decision is made to undergo dialysis she will need care home care facility will obtain labs in am and plan to be discussed Strict Is&Os neurology recs Grave prognosis Consider comfort care, advance directive discussions, hospice candidate Plan discussed with: Other (nurse) Dietary Evaluation Review Comments: Nutrition Recommendation: 1) TF Jevity 1.2Cal @ 50ml/hr x 24hr (goal) along with Pro-stat 1 pk daily. Start @ 20ml/hr, increase 10ml/hr Q4H until goal is reached. TF @ goal volume along with Pro-Stat provide 1540 kcal (100% energy needs), 82 gm protein (100% protein needs), 968 ml free water. 2) Water flush 100ml Q4H if allowed, adjust PRN 3) TPN if NPO >7 days 4) Monitor NPO status, lab values, wt trend, I/O Expected Outcomes/Goals: Lab values to improve Fu 2-3 days Critical Care Time (mins): 33 MARKO PETERS MD Feb 09, 2025 17:53
[2025-02-09] MEDS: AMINO ACID INFUSION IN D10W 1,000 ML IV SCH (22:03)
--- NOTE | 2025-02-09 23:54 | DVHPN2 ---
Progress Note - Dictate Date Seen: Feb 09, 2025 Medical Necessity Reason Pt with a Central, PICC or Fol: Yes The following are medically ne: Central Line, Cancino Catheter Subjective Patient was seen and evaluated in follow up. Patient downgraded to telemetry bed. Patient does not respond to verbal or painful stimulation. Overnight family decided to change the code status to do not intubate and they wanted everything else to be done. Telemetry reviewed. vital signs Vital Sign Date Time Temp Pulse Resp B/P (MAP) Pulse Ox O2 Delivery O2 Flow Rate FiO2 02/09/25 10:00 73 02/09/25 08:00 17 100 Room Air* 0 21 02/09/25 06:00 125/81 (96) 02/09/25 04:00 97.7 97.7 Total Intake and Output 02/08/25 02/08/25 02/09/25 15:00 23:00 07:00 Intake Total 42 ml 336 ml Output Total 950 ml 750 ml Balance -908 ml -414 ml medications Current Medications Medications Dose Ordered Sig/Abelardo Route Start Time Stop Time Status Last Admin Dose Admin Morphine Sulfate 2 mg Q1HP PRN IV 02/07/25 16:15 02/08/25 12:33 2 MG Lorazepam 1 mg Q2HP PRN IV 02/07/25 16:15 02/08/25 12:32 1 MG Amino Acids 0 ml @ 0 mls/hr PER PHARMACY IV 02/08/25 21:30 Amino Acids/ Electrolytes/ Dextrose 1,000 ml @ 42 mls/hr DAILY@2200 IV 02/08/25 22:00 02/08/25 22:44 42 MLS/HR Diagnostic Test (Pha) 1 strip Q6HR 02/09/25 00:00 02/09/25 00:11 1 STRIP Insulin Human Regular FOLLOW SLIDING SCALE Q6HR SC 02/09/25 00:00 Dextrose 50 ml UD IV 02/08/25 22:00 objective GENERAL: Ill appearing. EYES: PERRL, EOMI. Anicteric. HENT: Moist mucous membranes. LUNGS: Decreased breath sounds. CARDIOVASCULAR: Irregular rate and rhythm. ABDOMEN: Soft, nontender and nondistended. EXTREMITIES: Trace edema. SKIN: Bilateral feet are mottled. NEURO: Unresponsive, pupils dilated and fixed, no response to pain, absent gag reflex. laboratory and microbiology Laboratory Tests 02/09/25 02:46 Test 02/09/25 02:46 Range/Units Serum Glucose 105 74-106 mg/dL Problem List Cardiopulmonary arrest s/p CPR with return of spontaneous circulation. NSTEMI. Rule out structural heart disease. Prolonged QTc interval. Septic shock. Hypokalemia. Acute kidney injury. Transaminitis. Polysubstance abuse. Assessment/Plan Continued all current supportive medical care. Morphine for pain management. Clinimix for nutritional support. Additional plan as per the hospital course. Dietary Evaluation Review Comments: Nutrition Recommendation: 1) TF Jevity 1.2Cal @ 50ml/hr x 24hr (goal) along with Pro-stat 1 pk daily. Start @ 20ml/hr, increase 10ml/hr Q4H until goal is reached. TF @ goal volume along with Pro-Stat provide 1540 kcal (100% energy needs), 82 gm protein (100% protein needs), 968 ml free water. 2) Water flush 100ml Q4H if allowed, adjust PRN 3) TPN if NPO >7 days 4) Monitor NPO status, lab values, wt trend, I/O Expected Outcomes/Goals: Lab values to improve Fu 2-3 days Plan discussed with: Other SKYE GONZALES MD Feb 09, 2025 12:14
[2025-02-10] VITALS (9 sets, daily range): BP systolic 115–159; BP diastolic 80–98; PULSE 71–95; RESP 18–97; TEMP 95.8–98.1; O2SAT 94–100
[2025-02-10 06:32] LABS: Hematocrit 35.4 % (36.0-46.0); Hemoglobin 11.8 g/dL (12.2-16.2); Mean Corpuscular Hemoglobin 29.4 pg (28.0-32.0); Mean Corpuscular Volume 88.3 fL (80.0-100.0); Nucleated Red Blood Cells % 0.1 %
[2025-02-10 06:55] LABS: Alanine Aminotransferase 26 U/L (7-40); Anion Gap 19 (5-15); BUN/Creatinine Ratio 16.3 (10.0-20.0); Carbon Dioxide 23 mmol/L (20-31); Chloride 102 mmol/L (98-107); Potassium 4.3 mmol/L (3.5-5.1); Sodium 144 mmol/L (136-145)
[2025-02-10 07:01] LABS: Albumin 3.2 g/dL (3.2-4.8); Alkaline Phosphatase 118 U/L (46-116); Bilirubin, Total 0.2 mg/dL (0.2-1.0); Calcium 8.0 mg/dL (8.7-10.4); Glucose 133 mg/dL (74-106); Magnesium 2.6 mg/dL (1.6-2.6); Total Protein 5.5 g/dL (5.7-8.2)
[2025-02-10 08:03] LABS: Blood Urea Nitrogen 101 mg/dL (9-23)
[2025-02-10] MEDS: SODIUM CHLORIDE 0.9% 1,000 ML IV SCH (09:57)
[2025-02-10] MEDS: FUROSEMIDE 40 MG/4 ML VIAL IV ONE (10:13)
--- NOTE | 2025-02-10 11:00 | DVHPN2 ---
Progress Note Date Seen: Feb 10, 2025 Medical Necessity Reason Pt with a Central, PICC or Fol: Yes The following are medically ne: Central Line, Cancino Catheter Subjective Patient reports: No new complaints Review of Systems: NEURO:Abnormal Other Systems: Patient seen and examined by myself today in follow-up Objective vital signs Vital Sign Date Time Temp Pulse Resp B/P (MAP) Pulse Ox O2 Delivery O2 Flow Rate FiO2 02/10/25 10:13 116/83 02/10/25 09:00 95.8 72 97 97 95.8 02/09/25 20:00 Room Air* 0 21 Total Intake and Output 02/09/25 02/09/25 02/10/25 14:59 22:59 06:59 Intake Total 336 ml 168 ml Output Total 800 ml Balance 336 ml -632 ml medications Current Medications Medications Dose Ordered Sig/Abelardo Route Start Time Stop Time Status Last Admin Dose Admin Morphine Sulfate 2 mg Q1HP PRN IV 02/07/25 16:15 02/08/25 12:33 2 MG Diagnostic Test (Pha) 1 strip Q6HR 02/09/25 00:00 02/10/25 05:36 1 STRIP Insulin Human Regular FOLLOW SLIDING SCALE Q6HR SC 02/09/25 00:00 02/09/25 12:12 2 UNITS Dextrose 50 ml UD IV 02/08/25 22:00 Amino Acids 0 ml @ 0 mls/hr PER PHARMACY IV 02/09/25 13:45 Amino Acids/ Electrolytes/ Dextrose 1,000 ml @ 41 mls/hr DAILY@2200 IV 02/09/25 22:00 02/09/25 22:03 41 MLS/HR Sodium Chloride 1,000 ml @ 50 mls/hr Q20H IV 02/10/25 09:15 02/10/25 09:57 50 MLS/HR laboratory and microbiology Laboratory Tests 02/10/25 05:40 Test 02/10/25 05:40 Range/Units Serum Glucose 133 H 74-106 mg/dL Microbiology Date/Time Source Procedure Growth Status 02/06/25 15:15 Blood Blood Culture - Preliminary NO GROWTH AFTER 72 HOURS OF INCUBATION. Resulted 02/03/25 08:40 Nose MRSA Screen - Final Methicillin Resistant S.aureus Complete 02/03/25 05:33 Urine - C[place] Port Urine Culture - Final Complete 02/02/25 22:45 Sputum Gram Stain - Final Complete 02/02/25 22:45 Sputum Respiratory Culture - Final Complete Problem List/Assessment/Plan Problem List/Assessment/Plan Acute kidney injury likely in the setting of shock acute kidney injury likely ATN in the setting Of shock polysubstance abuse suspected drug overdose Cardiac arrest status post CPR Ventilator-dependent hypoxic respiratory failure extubated CT head shows diffuse cerebral edema Recommendations Kidney function slightly improved today Increased urine output And monitor renal function closely // 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 SHe is not a candidate for outpatient dialysis. If decision is made to undergo dialysis she will need half-way care facility will obtain labs in am and plan to be discussed Strict Is&Os neurology recs Grave prognosis Consider comfort care, advance directive discussions, hospice candidate Plan discussed with: Patient Dietary Evaluation Review Comments: Nutrition Recommendation: 1) TF Jevity 1.2Cal @ 50ml/hr x 24hr (goal) along with Pro-stat 1 pk daily. Start @ 20ml/hr, increase 10ml/hr Q4H until goal is reached. TF @ goal volume along with Pro-Stat provide 1540 kcal (100% energy needs), 82 gm protein (100% protein needs), 968 ml free water. 2) Water flush 100ml Q4H if allowed, adjust PRN 3) TPN if NPO >7 days 4) Monitor NPO status, lab values, wt trend, I/O Expected Outcomes/Goals: Lab values to improve Fu 2-3 days MORRIS LAKHANI MD Feb 10, 2025 11:00
[2025-02-10] MEDS: BUMETANIDE 2.5mg/10ml (0.25 mg/ml) INJ IV ONE (11:53)
--- NOTE | 2025-02-10 14:44 | DVHPNRES ---
Progress Note Date Seen: Feb 10, 2025 Resident Creating Document: BRANDY HERNANDEZ RESIDENT Medical Necessity Reason Pt with a Central, PICC or Fol: Yes The following are medically ne: Central Line, Cancino Catheter Subjective Review of Systems 02/10 Patient seen and examined at the bedside. Overnight family decided to change the code status to do not intubate and they wanted everything else to be done. Patient has stable hemodynamics but no responds to verbal or painful stimulation. Objective vital signs Vital Sign Date Time Temp Pulse Resp B/P (MAP) Pulse Ox O2 Delivery O2 Flow Rate FiO2 02/10/25 13:00 74 22 115/80 (92) 95 02/10/25 09:00 95.8 95.8 02/10/25 08:00 Room Air* 0 21 Total Intake and Output 02/09/25 02/09/25 02/10/25 15:00 23:00 07:00 Intake Total 336 ml 126 ml Output Total 800 ml Balance 336 ml -674 ml medications Current Medications Medications Dose Ordered Sig/Abelardo Route Start Time Stop Time Status Last Admin Dose Admin Morphine Sulfate 2 mg Q1HP PRN IV 02/07/25 16:15 02/08/25 12:33 2 MG Diagnostic Test (Pha) 1 strip Q6HR 02/09/25 00:00 02/10/25 11:54 1 STRIP Insulin Human Regular FOLLOW SLIDING SCALE Q6HR SC 02/09/25 00:00 02/10/25 12:38 2 UNITS Dextrose 50 ml UD IV 02/08/25 22:00 Amino Acids 0 ml @ 0 mls/hr PER PHARMACY IV 02/09/25 13:45 Amino Acids/ Electrolytes/ Dextrose 1,000 ml @ 41 mls/hr DAILY@2200 IV 02/09/25 22:00 02/09/25 22:03 41 MLS/HR Sodium Chloride 1,000 ml @ 50 mls/hr Q20H IV 02/10/25 09:15 02/10/25 09:57 50 MLS/HR Examination Gen - no pallor, no icterus, no edema . Skin - Patients skin is warm and dry. HEENT - normocephalic, atraumatic, pupils fixed Neck - no JVD Pulmonary - B/L equal air entry, no wheezing, no stridor. cardiovascular - regular S1,S2 heard, no added sounds, no murmurs heard. peripheral pulses normal radial 2+, pedal 2+. GI - soft abdomen. Bowel sounds hypoactive Neurological - patient is on mechanical ventilation, no sedation, pupils dilated and fixed, no response to pain, absent gag reflex laboratory and microbiology Laboratory Tests 02/10/25 05:40 Test 02/10/25 05:40 Range/Units Serum Glucose 133 H 74-106 mg/dL Microbiology Date/Time Source Procedure Growth Status 02/06/25 15:15 Blood Blood Culture - Preliminary NO GROWTH AFTER 72 HOURS OF INCUBATION. Resulted 02/03/25 08:40 Nose MRSA Screen - Final Methicillin Resistant S.aureus Complete 02/03/25 05:33 Urine - Cancino Port Urine Culture - Final Complete 02/02/25 22:45 Sputum Gram Stain - Final Complete 02/02/25 22:45 Sputum Respiratory Culture - Final Complete Problem List/Assessment/Plan Problem List/Assessment/Plan Neurology Acute hypoxic encephalopathy status post cardiopulmonary arrest - on room air - head CT showed supratentorial and infratentorial diffuse brain edema Cardiovascular Cardiopulmonary arrest s/p ROSC NSTEMI likely type 1 Arrhythmia, pulseless VT Shock likely cardiogenic/septic Acute on chronic diastolic heart failure Moderate pulmonary hypertension Left popliteal vein DVT - echocardiogram showed LVEF 50%, mild LVH with mild LV diastolic dysfunction with moderate degree pulmonary hypertension with RVSP of 46 mmHg - stable hemodynamics Respiratory Bilateral pulmonary edema, improving - on room air Nephrology ZION on CKD likely due to VMN due to shock Severe Hypokalemia, resolved - Bumex 2 mg IV daily - as per Nephrology which does not a candidate for outpatient dialysis and if the decision is made to undergo dialysis she will need long-term care facility GI Shock liver - improving Infectious disease MRSA nares Bacteremia with staph hominis, likely contaminant. repeat cultures - started linezolid - mupirocin Cancino's inserted on 02/02 Goals of care discussed with the patient daughter Cindy. Daughter wants the patient to go to detention care but as per the showcase trimmer she has not been accepted anywhere. Code status: [id number] time spent excluding procedures including discussion with the daughter: 41 mins Plan discussed with Dr. Murphy Plan discussed with: Daughter, Other (MARLEN Sewell) My Orders My Orders Orders - BRANDY HERNANDEZ Procedure Category Date Status Time Comprehensive LAB 02/11/25 Verified Metabolic Panel 05:00 Phosphorus LAB 02/11/25 Verified 05:00 Magnesium LAB 02/11/25 Verified 05:00 Clinimix Per [facility] 02/10/25 In Process 22:00 Dietary Evaluation Review Comments: Nutrition Recommendation: 1) TF Jevity 1.2Cal @ 50ml/hr x 24hr (goal) along with Pro-stat 1 pk daily. Start @ 20ml/hr, increase 10ml/hr Q4H until goal is reached. TF @ goal volume along with Pro-Stat provide 1540 kcal (100% energy needs), 82 gm protein (100% protein needs), 968 ml free water. 2) Water flush 100ml Q4H if allowed, adjust PRN 3) TPN if NPO >7 days 4) Monitor NPO status, lab values, wt trend, I/O Expected Outcomes/Goals: Lab values to improve Fu 2-3 days BRANDY HERNANDEZ RESIDENT Feb 10, 2025 14:44
--- NOTE | 2025-02-10 17:42 | DVHPN2 ---
Progress Note - Dictate Date Seen: Feb 10, 2025 Medical Necessity Reason Pt with a Central, PICC or Fol: Yes The following are medically ne: Central Line, Cancino Catheter Subjective Patient was seen and evaluated in follow up. Patient resting in bed, does not appear in any pain or distress. Patient's daughter is present at bedside. CM is working on intermediate bed placement. Telemetry reviewed. vital signs Vital Sign Date Time Temp Pulse Resp B/P (MAP) Pulse Ox O2 Delivery O2 Flow Rate FiO2 02/10/25 11:53 120/74 02/10/25 09:00 95.8 72 97 97 95.8 02/10/25 08:00 Room Air* 0 21 Total Intake and Output 02/09/25 02/09/25 02/10/25 15:00 23:00 07:00 Intake Total 336 ml 126 ml Output Total 800 ml Balance 336 ml -674 ml medications Current Medications Medications Dose Ordered Sig/Abelardo Route Start Time Stop Time Status Last Admin Dose Admin Morphine Sulfate 2 mg Q1HP PRN IV 02/07/25 16:15 02/08/25 12:33 2 MG Diagnostic Test (Pha) 1 strip Q6HR 02/09/25 00:00 02/10/25 11:54 1 STRIP Insulin Human Regular FOLLOW SLIDING SCALE Q6HR SC 02/09/25 00:00 02/09/25 12:12 2 UNITS Dextrose 50 ml UD IV 02/08/25 22:00 Amino Acids 0 ml @ 0 mls/hr PER PHARMACY IV 02/09/25 13:45 Amino Acids/ Electrolytes/ Dextrose 1,000 ml @ 41 mls/hr DAILY@2200 IV 02/09/25 22:00 02/09/25 22:03 41 MLS/HR Sodium Chloride 1,000 ml @ 50 mls/hr Q20H IV 02/10/25 09:15 02/10/25 09:57 50 MLS/HR objective GENERAL: Ill appearing. EYES: PERRL, EOMI. Anicteric. HENT: Moist mucous membranes. LUNGS: Decreased breath sounds. CARDIOVASCULAR: Irregular rate and rhythm. ABDOMEN: Soft, nontender and nondistended. EXTREMITIES: Trace edema. SKIN: Bilateral feet are mottled. NEURO: Unresponsive, pupils dilated and fixed, no response to pain, absent gag reflex. laboratory and microbiology Laboratory Tests 02/10/25 05:40 Test 02/10/25 05:40 Range/Units Serum Glucose 133 H 74-106 mg/dL Problem List Cardiopulmonary arrest s/p CPR with return of spontaneous circulation. NSTEMI. Rule out structural heart disease. Prolonged QTc interval. Septic shock. Hypokalemia. Acute kidney injury. Transaminitis. Polysubstance abuse. Assessment/Plan Continued all current supportive medical care. IVFs. Clinimix for nutritional support. Additional plan as per the hospital course. Dietary Evaluation Review Comments: Nutrition Recommendation: 1) TF Jevity 1.2Cal @ 50ml/hr x 24hr (goal) along with Pro-stat 1 pk daily. Start @ 20ml/hr, increase 10ml/hr Q4H until goal is reached. TF @ goal volume along with Pro-Stat provide 1540 kcal (100% energy needs), 82 gm protein (100% protein needs), 968 ml free water. 2) Water flush 100ml Q4H if allowed, adjust PRN 3) TPN if NPO >7 days 4) Monitor NPO status, lab values, wt trend, I/O Expected Outcomes/Goals: Lab values to improve Fu 2-3 days Plan discussed with: Other SKYE GONZALES MD Feb 10, 2025 12:29
[2025-02-10] MEDS: LINEZOLID 600MG/300ML 300 ML IV SCH (23:55)
[2025-02-11] VITALS (10 sets, daily range): BP systolic 127–150; BP diastolic 82–94; PULSE 72–87; RESP 15–20; TEMP 97.6–98.8; O2SAT 77–100
[2025-02-11 05:54] LABS: Hematocrit 36.9 % (36.0-46.0); Hemoglobin 12.2 g/dL (12.2-16.2); Mean Corpuscular Hemoglobin 29.2 pg (28.0-32.0); Mean Corpuscular Volume 88.2 fL (80.0-100.0); Nucleated Red Blood Cells % 0.1 %
[2025-02-11 06:05] LABS: Alanine Aminotransferase 28 U/L (7-40); Albumin 3.4 g/dL (3.2-4.8); Anion Gap 17 (5-15); BUN/Creatinine Ratio 19.9 (10.0-20.0); Carbon Dioxide 26 mmol/L (20-31); Chloride 100 mmol/L (98-107); Magnesium 2.4 mg/dL (1.6-2.6); Potassium 3.9 mmol/L (3.5-5.1); Sodium 143 mmol/L (136-145); Total Protein 5.9 g/dL (5.7-8.2)
[2025-02-11 06:12] LABS: Alkaline Phosphatase 118 U/L (46-116); Bilirubin, Total 0.2 mg/dL (0.2-1.0); Calcium 8.5 mg/dL (8.7-10.4); Glucose 143 mg/dL (74-106)
[2025-02-11 06:13] LABS: Blood Urea Nitrogen 115 mg/dL (9-23)
--- NOTE | 2025-02-11 10:13 | DVHPN2 ---
Progress Note Date Seen: Feb 11, 2025 Medical Necessity Reason Pt with a Central, PICC or Fol: Yes The following are medically ne: Central Line, Cancino Catheter Subjective Patient reports: No new complaints Other Systems: Patient seen and examined by myself today in follow-up Objective vital signs Vital Sign Date Time Temp Pulse Resp B/P (MAP) Pulse Ox O2 Delivery O2 Flow Rate FiO2 02/11/25 07:40 18 140/91 (107) 100 02/11/25 05:00 98.3 73 98.3 02/10/25 20:00 Room Air* 0 21 Total Intake and Output 02/10/25 02/10/25 02/11/25 15:00 23:00 07:00 Intake Total 851 ml 1251 ml Output Total 1500 ml 1600 ml Balance -649 ml -349 ml medications Current Medications Medications Dose Ordered Sig/Abelardo Route Start Time Stop Time Status Last Admin Dose Admin Morphine Sulfate 2 mg Q1HP PRN IV 02/07/25 16:15 02/08/25 12:33 2 MG Diagnostic Test (Pha) 1 strip Q6HR 02/09/25 00:00 02/11/25 06:00 1 STRIP Insulin Human Regular FOLLOW SLIDING SCALE Q6HR SC 02/09/25 00:00 02/11/25 07:17 2 UNITS Dextrose 50 ml UD IV 02/08/25 22:00 Amino Acids 0 ml @ 0 mls/hr PER PHARMACY IV 02/09/25 13:45 Amino Acids/ Electrolytes/ Dextrose 1,000 ml @ 41 mls/hr DAILY@2200 IV 02/09/25 22:00 02/10/25 22:09 41 MLS/HR Sodium Chloride 1,000 ml @ 50 mls/hr Q20H IV 02/10/25 09:15 02/11/25 05:15 50 MLS/HR Linezolid 300 ml @ 150 mls/hr Q12HR IV 02/10/25 22:00 02/11/25 09:47 150 MLS/HR Examination: LUNGS:Normal, CVS:Normal, MSK:Normal laboratory and microbiology Laboratory Tests 02/11/25 05:09 02/11/25 05:08 Test 02/11/25 05:09 Range/Units Serum Glucose 143 H 74-106 mg/dL Microbiology Date/Time Source Procedure Growth Status 02/06/25 15:15 Blood Blood Culture - Preliminary NO GROWTH AFTER 72 HOURS OF INCUBATION. Resulted 02/03/25 08:40 Nose MRSA Screen - Final Methicillin Resistant S.aureus Complete 02/03/25 05:33 Urine - Cancino Port Urine Culture - Final Complete 02/02/25 22:45 Sputum Gram Stain - Final Complete 02/02/25 22:45 Sputum Respiratory Culture - Final Complete Problem List/Assessment/Plan Problem List/Assessment/Plan Acute kidney injury likely in the setting of shock acute kidney injury likely ATN in the setting Of shock polysubstance abuse suspected drug overdose Cardiac arrest status post CPR Ventilator-dependent hypoxic respiratory failure extubated CT head shows diffuse cerebral edema Recommendations Kidney function continues to slowly improve Increased urine output Cancino catheter patient is DNI now but family wants to consider dialysis treatments. SHe is not a candidate for outpatient dialysis. If decision is made to undergo dialysis she will need long term care facility will obtain labs in am and plan to be discussed Strict Is&Os neurology recs Grave prognosis Consider comfort care, advance directive discussions, hospice candidate Plan discussed with: Patient Dietary Evaluation Review Comments: Nutrition Recommendation: 1) TF Jevity 1.2Cal @ 50ml/hr x 24hr (goal) along with Pro-stat 1 pk daily. Start @ 20ml/hr, increase 10ml/hr Q4H until goal is reached. TF @ goal volume along with Pro-Stat provide 1540 kcal (100% energy needs), 82 gm protein (100% protein needs), 968 ml free water. 2) Water flush 100ml Q4H if allowed, adjust PRN 3) TPN if NPO >7 days 4) Monitor NPO status, lab values, wt trend, I/O Expected Outcomes/Goals: Lab values to improve Fu 2-3 days MORRIS LAKHANI MD Feb 11, 2025 10:12
--- NOTE | 2025-02-11 19:24 | DVHPN2 ---
Subjective Patient is DNR currently senior living placement is being awaited. Patient's family member at bedside. Reviewed: Care Plan Changes from previous H/P or p: No Changes General: Per HPI Eyes: No Pain, No Vision change, No Conjunctivae inflammation, No Eyelid inflammation, No Other, No Redness ENT: No Ear pain, No Ear discharge, No Nose pain, No Nose discharge, No Nose congestion, No Mouth pain, No Mouth swelling, No Throat pain, No Throat swelling, No Other Cardiovascular: No Chest Pain, No Palpitations, No Orthopnea, No Paroxysmal Noc. Dyspnea, No Edema, No Lt Headedness; Other (Cardiac arrest) Respiratory: No Cough, No Dry, No Shortness of breath, No SOB with excertion, No Wheezing, No Hemoptysis, No Pleuritic Pain, No Sputum, No Other Gastrointestinal: No Nausea, No Vomiting, No Abdominal Pain, No Diarrhea, No Constipation, No Melena, No Hematochezia, No Other Genitourinary: No Dysuria, No Frequency, No Incontinence, No Hematuria, No Retention; Other (Cancino catheter in place) Musculoskeletal: No other, No neck pain, No shoulder pain, No arm pain, No back pain, No hand pain, No leg pain, No foot pain Skin: No Rash, No Lesions, No Jaundice, No Bruising, No Other Objective Vitals Vital Signs Date Time Temp Pulse Resp B/P (MAP) Pulse Ox O2 Delivery O2 Flow Rate FiO2 02/11/25 17:00 98.7 82 18 141/89 (106) 100 98.7 02/11/25 07:35 Simple Mask* 8 60 Intake/Output Intake and Output 02/11/25 07:00 Intake Total 2102 ml Output Total 3100 ml Balance -998 ml Intake Oral 0 ml IV Total 2102 ml Output Urine Total 3100 ml # Bowel Movements 8 Exam HEENT pupils are reactive Neck is supple CV is S1-S2 regular rate and rhythm Respiratory diminished breath sounds bases GI positive bowel sound Extremity no edema 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 Medications Current Medications Medications Dose Ordered Sig/Abelardo Route Start Time Stop Time Status Last Admin Dose Admin Morphine Sulfate 2 mg Q1HP PRN IV 02/07/25 16:15 02/08/25 12:33 2 MG Diagnostic Test (Pha) 1 strip Q6HR 02/09/25 00:00 02/11/25 18:06 1 STRIP Insulin Human Regular FOLLOW SLIDING SCALE Q6HR SC 02/09/25 00:00 02/11/25 12:04 4 UNITS Dextrose 50 ml UD IV 02/08/25 22:00 Amino Acids 0 ml @ 0 mls/hr PER PHARMACY IV 02/09/25 13:45 Amino Acids/ Electrolytes/ Dextrose 1,000 ml @ 41 mls/hr DAILY@2200 IV 02/09/25 22:00 02/10/25 22:09 41 MLS/HR Sodium Chloride 1,000 ml @ 50 mls/hr Q20H IV 02/10/25 09:15 02/11/25 05:15 50 MLS/HR Linezolid 300 ml @ 150 mls/hr Q12HR IV 02/10/25 22:00 02/11/25 09:47 150 MLS/HR Laboratory Results Laboratory Tests 02/11/25 05:08 02/11/25 05:09 Chemistry Test 02/11/25 05:09 Albumin 3.4 g/dL (3.2-4.8) Calcium Level 8.5 mg/dL (8.7-10.4) L Magnesium Level 2.4 mg/dL (1.6-2.6) Phosphorus Level 7.3 mg/dL (2.4-5.1) H Total Protein 5.9 g/dL (5.7-8.2) LFT Test 02/11/25 05:09 Alanine Aminotransferase (ALT) 28 U/L (7-40) Alkaline Phosphatase 118 U/L (46-116) H Aspartate Amino Transferase (AST) 76 U/L (13-40) H Total Bilirubin 0.2 mg/dL (0.2-1.0) Urinalysis Test 02/03/25 05:33 Urine Color Light-orange (Yellow) Urine Clarity Turbid (Clear) H Urine pH 6.0 (5.0-9.0) Urine Specific [place] 1.012 (1.001-1.035) Urine Protein 2+ (Negative) H Urine Ketones Negative (Negative) Urine Blood 3+ /uL (Negative) H Urine Nitrite Negative (Negative) Urine Bilirubin Negative (Negative) Urine Urobilinogen 2 mg/dL (Negative) H Urine Leukocyte Esterase Negative /uL (Negative) Urine RBC 18 /hpf (0 - 4) Urine Microscopic WBC 24 /HPF (0-5) H Urine Squamous Epithelial Cells Few /hpf (<5) Urine Amorphous Crystals Few /hpf (None Seen) Urine Bacteria None seen /hpf (None Seen) Urine Hyaline Casts Few /lpf (0 - 2) Urine Glucose 3+ mg/dL (Normal) H Microbiology Microbiology Date/Time Source Procedure Growth Status 02/06/25 15:15 Blood Blood Culture - Final NO GROWTH AFTER 5 DAYS OF INCUBATION. Complete 02/03/25 08:40 Nose MRSA Screen - Final Methicillin Resistant S.aureus Complete 02/03/25 05:33 Urine - [place] Port Urine Culture - Final Complete 02/02/25 22:45 Sputum Gram Stain - Final Complete 02/02/25 22:45 Sputum Respiratory Culture - Final Complete Assessment/Plan Assessment/Plan 54-year-old female who was brought in by paramedics with a full arrest in the field with a unknown downtime status post CPR, intubation, with a return of spontaneous circulation at [facility] ER. Patient's bedside RN told me that they are waiting for senior living bed placement. 1. Cardiopulmonary arrest status post CPR with ROSC 2. NSTEMI 3. Acute anoxic encephalopathy with a brain edema 4. Polysubstance abuse 5. Acute kidney injury with a underlying CKD 6. Cardiogenic shock currently improved 7. Pulmonary hypertension 8. Shock liver -DNR status, continue current medications, clinical social work therapist consultation for senior living placement. Plan discussed with: Other (Patient's family member at bedside.) Date of Service: Feb 11, 2025 Billing Provider: KLAUDIA MENA MD Common Visit Codes: [id number] INP/OBS CARE(MOD) KLAUDIA MENA MD Feb 11, 2025 19:24
--- NOTE | 2025-02-11 23:23 | DVHPN2 ---
Progress Note - Dictate Date Seen: Feb 11, 2025 Medical Necessity Reason Pt with a Central, PICC or Fol: Yes The following are medically ne: Central Line, Cancino Catheter Subjective Patient was seen and evaluated in follow up. Overnight, Per RN, patient was desaturating into the mid 70's and was placed on 8 L simple mask. Patient's family has decided to change patient's code status back to DNR. 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 Telemetry reviewed. vital signs Vital Sign Date Time Temp Pulse Resp B/P (MAP) Pulse Ox O2 Delivery O2 Flow Rate FiO2 02/11/25 12:26 98.8 72 18 127/82 (97) 98 98.8 02/11/25 07:35 Simple Mask* 8 60 Total Intake and Output 02/10/25 02/10/25 02/11/25 15:00 23:00 07:00 Intake Total 851 ml 1251 ml Output Total 1500 ml 1600 ml Balance -649 ml -349 ml medications Current Medications Medications Dose Ordered Sig/Abelardo Route Start Time Stop Time Status Last Admin Dose Admin Morphine Sulfate 2 mg Q1HP PRN IV 02/07/25 16:15 02/08/25 12:33 2 MG Diagnostic Test (Pha) 1 strip Q6HR 02/09/25 00:00 02/11/25 12:01 1 STRIP Insulin Human Regular FOLLOW SLIDING SCALE Q6HR SC 02/09/25 00:00 02/11/25 12:04 4 UNITS Dextrose 50 ml UD IV 02/08/25 22:00 Amino Acids 0 ml @ 0 mls/hr PER PHARMACY IV 02/09/25 13:45 Amino Acids/ Electrolytes/ Dextrose 1,000 ml @ 41 mls/hr DAILY@2200 IV 02/09/25 22:00 02/10/25 22:09 41 MLS/HR Sodium Chloride 1,000 ml @ 50 mls/hr Q20H IV 02/10/25 09:15 02/11/25 05:15 50 MLS/HR Linezolid 300 ml @ 150 mls/hr Q12HR IV 02/10/25 22:00 02/11/25 09:47 150 MLS/HR objective GENERAL: Ill appearing. EYES: PERRL, EOMI. Anicteric. HENT: Moist mucous membranes. LUNGS: Decreased breath sounds. CARDIOVASCULAR: Irregular rate and rhythm. ABDOMEN: Soft, nontender and nondistended. EXTREMITIES: Trace edema. SKIN: Bilateral feet are mottled. NEURO: Unresponsive, pupils dilated and fixed, no response to pain, absent gag reflex. laboratory and microbiology Laboratory Tests 02/11/25 05:09 02/11/25 05:08 Test 02/11/25 05:09 Range/Units Serum Glucose 143 H 74-106 mg/dL Problem List Cardiopulmonary arrest s/p CPR with return of spontaneous circulation. NSTEMI. Rule out structural heart disease. Prolonged QTc interval. Septic shock. Hypokalemia. Acute kidney injury. Transaminitis. Polysubstance abuse. Assessment/Plan Continued all current supportive medical care. IV antibiotics as ordered. Clinimix for nutritional support. Additional plan as per the hospital course. Dietary Evaluation Review Comments: Nutrition Recommendation: 1) TF Jevity 1.2Cal @ 50ml/hr x 24hr (goal) along with Pro-stat 1 pk daily. Start @ 20ml/hr, increase 10ml/hr Q4H until goal is reached. TF @ goal volume along with Pro-Stat provide 1540 kcal (100% energy needs), 82 gm protein (100% protein needs), 968 ml free water. 2) Water flush 100ml Q4H if allowed, adjust PRN 3) TPN if NPO >7 days 4) Monitor NPO status, lab values, wt trend, I/O Expected Outcomes/Goals: Lab values to improve Fu 2-3 days Plan discussed with: Other SKYE GONZALES MD Feb 11, 2025 12:38
[2025-02-12] VITALS (11 sets, daily range): BP systolic 53–158; BP diastolic 25–96; PULSE 41–111; RESP 5–30; TEMP 97.5–98.6; O2SAT 72–100
[2025-02-12 07:01] LABS: Alanine Aminotransferase 27 U/L (7-40); Albumin 3.7 g/dL (3.2-4.8); Anion Gap 16 (5-15); BUN/Creatinine Ratio 26.5 (10.0-20.0); Calcium 8.9 mg/dL (8.7-10.4); Carbon Dioxide 27 mmol/L (20-31); Chloride 100 mmol/L (98-107); Magnesium 2.1 mg/dL (1.6-2.6); Potassium 4.2 mmol/L (3.5-5.1); Sodium 143 mmol/L (136-145); Total Protein 6.6 g/dL (5.7-8.2)
[2025-02-12 07:11] LABS: Glucose 107 mg/dL (74-106)
[2025-02-12 07:12] LABS: Blood Urea Nitrogen 135 mg/dL (9-23)
[2025-02-12 07:13] LABS: Alkaline Phosphatase 148 U/L (46-116); Bilirubin, Total 0.3 mg/dL (0.2-1.0)
--- NOTE | 2025-02-12 10:52 | DVHPN2 ---
Progress Note Date Seen: Feb 12, 2025 Medical Necessity Reason Pt with a Central, PICC or Fol: Yes The following are medically ne: Central Line, Cancino Catheter Subjective Patient reports: No new complaints Other Systems: Patient seen and examined by myself today in follow-up Objective vital signs Vital Sign Date Time Temp Pulse Resp B/P (MAP) Pulse Ox O2 Delivery O2 Flow Rate FiO2 02/12/25 08:25 98.6 95 18 118/75 (89) 97 98.6 02/12/25 07:34 Simple Mask* 8 60 Total Intake and Output 02/11/25 02/11/25 02/12/25 15:00 23:00 07:00 Intake Total 300 ml 0 ml 1551 ml Output Total 1150 ml Balance 300 ml 0 ml 401 ml medications Current Medications Medications Dose Ordered Sig/Abelardo Route Start Time Stop Time Status Last Admin Dose Admin Morphine Sulfate 2 mg Q1HP PRN IV 02/07/25 16:15 02/12/25 01:58 2 MG Diagnostic Test (Pha) 1 strip Q6HR 02/09/25 00:00 02/12/25 06:12 1 STRIP Insulin Human Regular FOLLOW SLIDING SCALE Q6HR SC 02/09/25 00:00 02/11/25 23:58 2 UNITS Dextrose 50 ml UD IV 02/08/25 22:00 Amino Acids 0 ml @ 0 mls/hr PER PHARMACY IV 02/09/25 13:45 Amino Acids/ Electrolytes/ Dextrose 1,000 ml @ 41 mls/hr DAILY@2200 IV 02/09/25 22:00 02/11/25 21:05 41 MLS/HR Sodium Chloride 1,000 ml @ 50 mls/hr Q20H IV 02/10/25 09:15 02/11/25 05:15 50 MLS/HR Linezolid 300 ml @ 150 mls/hr Q12HR IV 02/10/25 22:00 02/12/25 09:46 150 MLS/HR Examination: LUNGS:Normal, CVS:Normal, MSK:Abnormal laboratory and microbiology Laboratory Tests 02/12/25 05:29 02/11/25 05:08 Test 02/12/25 05:29 Range/Units Serum Glucose 107 H 74-106 mg/dL Microbiology Date/Time Source Procedure Growth Status 02/06/25 15:15 Blood Blood Culture - Final NO GROWTH AFTER 5 DAYS OF INCUBATION. Complete 02/03/25 08:40 Nose MRSA Screen - Final Methicillin Resistant S.aureus Complete 02/03/25 05:33 Urine - C[place] Port Urine Culture - Final Complete 02/02/25 22:45 Sputum Gram Stain - Final Complete 02/02/25 22:45 Sputum Respiratory Culture - Final Complete Problem List/Assessment/Plan Problem List/Assessment/Plan Acute kidney injury likely in the setting of shock acute kidney injury likely ATN in the setting Of shock polysubstance abuse suspected drug overdose Status post Cardiac arrest Ventilator-dependent hypoxic respiratory failure extubated Anoxic encephalopathy Hyperglycemia Recommendations Kidney function continues to slowly improve Increased urine output Cancino catheter IV fluid / NS @75 patient is DNI now b cc/hour ut family wants to consider dialysis treatments. SHe is not a candidate for outpatient dialysis. If decision is made to undergo dialysis she will need custodial care facility will obtain labs in am and plan to be discussed Strict Is&Os Noted plan for LTAC placement We will continue to follow up Plan discussed with: Other (Nurse) My Orders My Orders Orders - MORRIS LAKHANI MD Procedure Category Date Status Time 06/23 Ns PHA 02/12/25 Verified 11:00 Dietary Evaluation Review Comments: Nutrition Recommendation: 1) TF Jevity 1.2Cal @ 50ml/hr x 24hr (goal) along with Pro-stat 1 pk daily. Start @ 20ml/hr, increase 10ml/hr Q4H until goal is reached. TF @ goal volume along with Pro-Stat provide 1540 kcal (100% energy needs), 82 gm protein (100% protein needs), 968 ml free water. 2) Water flush 100ml Q4H if allowed, adjust PRN 3) TPN if NPO >7 days 4) Monitor NPO status, lab values, wt trend, I/O Expected Outcomes/Goals: Lab values to improve Fu 2-3 days MORRIS LAKHANI MD Feb 12, 2025 10:52
[2025-02-12] MEDS: SOD CHL 0.45% 1,000 ML IV SCH (11:00)
[2025-02-12] MEDS ORDERED: hydrALAZINE HCL 20 MG/ML VL IV PRN (13:00)
--- NOTE | 2025-02-12 18:30 | DVHPN2 ---
Subjective Patient is DNR currently skilled nursing placement is being awaited. Excision daughter Cindy at bedside was updated. Patient does have a paradoxical respirations. Reviewed: Care Plan Changes from previous H/P or p: No Changes General: Per HPI Eyes: No Pain, No Vision change, No Conjunctivae inflammation, No Eyelid inflammation, No Other, No Redness ENT: No Ear pain, No Ear discharge, No Nose pain, No Nose discharge, No Nose congestion, No Mouth pain, No Mouth swelling, No Throat pain, No Throat swelling, No Other Cardiovascular: No Chest Pain, No Palpitations, No Orthopnea, No Paroxysmal Noc. Dyspnea, No Edema, No Lt Headedness; Other (Cardiac arrest) Respiratory: No Cough, No Dry, No Shortness of breath, No SOB with excertion, No Wheezing, No Hemoptysis, No Pleuritic Pain, No Sputum, No Other Gastrointestinal: No Nausea, No Vomiting, No Abdominal Pain, No Diarrhea, No Constipation, No Melena, No Hematochezia, No Other Genitourinary: No Dysuria, No Frequency, No Incontinence, No Hematuria, No Retention; Other (Cancino catheter in place) Musculoskeletal: No other, No neck pain, No shoulder pain, No arm pain, No back pain, No hand pain, No leg pain, No foot pain Skin: No Rash, No Lesions, No Jaundice, No Bruising, No Other Objective Vitals Vital Signs Date Time Temp Pulse Resp B/P (MAP) Pulse Ox O2 Delivery O2 Flow Rate FiO2 02/12/25 17:27 98.4 111 22 123/71 (88) 100 98.4 02/12/25 07:34 Simple Mask* 8 60 Intake/Output Intake and Output 02/12/25 07:00 Intake Total 1851 ml Output Total 1150 ml Balance 701 ml Intake Oral 0 ml IV Total 600 ml Other 1251 ml Output Urine Total 1150 ml Exam HEENT pupils are reactive Neck is supple CV is S1-S2 regular rate and rhythm Respiratory diminished breath sounds bases GI positive bowel sound Extremity no edema SHADE [employer]ER patient does not follow commands Medications Current Medications Medications Dose Ordered Sig/Abelardo Route Start Time Stop Time Status Last Admin Dose Admin Morphine Sulfate 2 mg Q1HP PRN IV 02/07/25 16:15 02/12/25 01:58 2 MG Diagnostic Test (Pha) 1 strip Q6HR 02/09/25 00:00 02/12/25 17:38 1 STRIP Insulin Human Regular FOLLOW SLIDING SCALE Q6HR SC 02/09/25 00:00 02/12/25 12:01 2 UNITS Dextrose 50 ml UD IV 02/08/25 22:00 Amino Acids 0 ml @ 0 mls/hr PER PHARMACY IV 02/09/25 13:45 Amino Acids/ Electrolytes/ Dextrose 1,000 ml @ 41 mls/hr DAILY@2200 IV 02/09/25 22:00 02/11/25 21:05 41 MLS/HR Linezolid 300 ml @ 150 mls/hr Q12HR IV 02/10/25 22:00 02/12/25 09:46 150 MLS/HR Sodium Chloride 1,000 ml @ 75 mls/hr [id number] IV 02/12/25 11:00 02/12/25 11:00 75 MLS/HR Hydralazine HCl 10 mg Q4HP PRN IV 02/12/25 13:00 Laboratory Results Laboratory Tests 02/11/25 05:08 02/12/25 05:29 Chemistry Test 02/12/25 05:29 Albumin 3.7 g/dL (3.2-4.8) Calcium Level 8.9 mg/dL (8.7-10.4) Magnesium Level 2.1 mg/dL (1.6-2.6) Phosphorus Level 7.3 mg/dL (2.4-5.1) H Total Protein 6.6 g/dL (5.7-8.2) LFT Test 02/12/25 05:29 Alanine Aminotransferase (ALT) 27 U/L (7-40) Alkaline Phosphatase 148 U/L (46-116) H Aspartate Amino Transferase (AST) 84 U/L (13-40) H Total Bilirubin 0.3 mg/dL (0.2-1.0) Urinalysis Test 02/03/25 05:33 Urine Color Light-orange (Yellow) Urine Clarity Turbid (Clear) H Urine pH 6.0 (5.0-9.0) Urine Specific [place] 1.012 (1.001-1.035) Urine Protein 2+ (Negative) H Urine Ketones Negative (Negative) Urine Blood 3+ /uL (Negative) H Urine Nitrite Negative (Negative) Urine Bilirubin Negative (Negative) Urine Urobilinogen 2 mg/dL (Negative) H Urine Leukocyte Esterase Negative /uL (Negative) Urine RBC 18 /hpf (0 - 4) Urine Microscopic WBC 24 /HPF (0-5) H Urine Squamous Epithelial Cells Few /hpf (<5) Urine Amorphous Crystals Few /hpf (None Seen) Urine Bacteria None seen /hpf (None Seen) Urine Hyaline Casts Few /lpf (0 - 2) Urine Glucose 3+ mg/dL (Normal) H Microbiology Microbiology Date/Time Source Procedure Growth Status 02/06/25 15:15 Blood Blood Culture - Final NO GROWTH AFTER 5 DAYS OF INCUBATION. Complete 02/03/25 08:40 Nose MRSA Screen - Final Methicillin Resistant S.aureus Complete 02/03/25 05:33 Urine - [place] Urine Culture - Final Complete 02/02/25 22:45 Sputum Gram Stain - Final Complete 02/02/25 22:45 Sputum Respiratory Culture - Final Complete Assessment/Plan Assessment/Plan 54-year-old female who was brought in by paramedics with a full arrest in the field with a unknown downtime status post CPR, intubation, with a return of spontaneous circulation at [facility] ER. Patient's bedside RN told me that they are waiting for skilled nursing bed placement. 1. Cardiopulmonary arrest status post CPR with ROSC 2. NSTEMI 3. Acute anoxic encephalopathy with a brain edema 4. Polysubstance abuse 5. Acute kidney injury with a underlying CKD 6. Cardiogenic shock currently improved 7. Pulmonary hypertension 8. Shock liver -DNR status, continue current medications, psychiatric social worker supervisor consultation for skilled nursing placement. Plan discussed with: Daughter (Cindy.) My Orders Orders - KLAUDIA MENA MD Procedure Category Date Status Time Hydralazine Injection PHA 02/12/25 In Process (Apresoline Inject 13:00 Cleanse Wound With HOLLAND 02/12/25 In Process Wound Clean 11:38 Date of Service: Feb 12, 2025 Billing Provider: KLAUDIA MENA MD Common Visit Codes: [id number] INP/OBS CARE(MOD) KLAUDIA MENA MD Feb 12, 2025 18:30
--- NOTE | 2025-02-12 20:14 | DVHPN2 ---
Progress Note - Dictate Date Seen: Feb 12, 2025 Medical Necessity Reason Pt with a Central, PICC or Fol: Yes The following are medically ne: Central Line, Cancino Catheter Subjective Patient was seen and evaluated in follow up. Early this morning the patient had 1 episode of non sustaining SVT in the 150's. Patient is on 8 L simple mask. Patient is unresponsive to verbal stimuli. BUN 135, RN LONG TERM CARE 5.10, CA 7.3, AST 84. Patient is DNR currently fdc placement is being awaited. Telemetry reviewed. vital signs Vital Sign Date Time Temp Pulse Resp B/P (MAP) Pulse Ox O2 Delivery O2 Flow Rate FiO2 02/12/25 12:25 97.5 109 22 139/92 (108) 99 97.5 02/12/25 07:34 Simple Mask* 8 60 Total Intake and Output 02/11/25 02/11/25 02/12/25 15:00 23:00 07:00 Intake Total 300 ml 0 ml 1551 ml Output Total 1150 ml Balance 300 ml 0 ml 401 ml medications Current Medications Medications Dose Ordered Sig/Abelardo Route Start Time Stop Time Status Last Admin Dose Admin Morphine Sulfate 2 mg Q1HP PRN IV 02/07/25 16:15 02/12/25 01:58 2 MG Diagnostic Test (Pha) 1 strip Q6HR 02/09/25 00:00 02/12/25 12:02 1 STRIP Insulin Human Regular FOLLOW SLIDING SCALE Q6HR SC 02/09/25 00:00 02/12/25 12:01 2 UNITS Dextrose 50 ml UD IV 02/08/25 22:00 Amino Acids 0 ml @ 0 mls/hr PER PHARMACY IV 02/09/25 13:45 Amino Acids/ Electrolytes/ Dextrose 1,000 ml @ 41 mls/hr DAILY@2200 IV 02/09/25 22:00 02/11/25 21:05 41 MLS/HR Linezolid 300 ml @ 150 mls/hr Q12HR IV 02/10/25 22:00 02/12/25 09:46 150 MLS/HR Sodium Chloride 1,000 ml @ 75 mls/hr [id number] IV 02/12/25 11:00 02/12/25 11:00 75 MLS/HR Hydralazine HCl 10 mg Q4HP PRN IV 02/12/25 13:00 objective GENERAL: Ill appearing. EYES: PERRL, EOMI. Anicteric. HENT: Moist mucous membranes. LUNGS: Decreased breath sounds. CARDIOVASCULAR: Irregular rate and rhythm. ABDOMEN: Soft, nontender and nondistended. EXTREMITIES: Trace edema. SKIN: Bilateral feet are mottled. NEURO: Unresponsive, pupils dilated and fixed, no response to pain, absent gag reflex. laboratory and microbiology Laboratory Tests 02/12/25 05:29 02/11/25 05:08 Test 02/12/25 05:29 Range/Units Serum Glucose 107 H 74-106 mg/dL Problem List Cardiopulmonary arrest s/p CPR with return of spontaneous circulation. NSTEMI. Rule out structural heart disease. Prolonged QTc interval. Septic shock. Hypokalemia. Acute kidney injury. Transaminitis. Polysubstance abuse. Assessment/Plan Continued all current supportive medical care. IV Hydralazine for SBP > 160. IV antibiotics as ordered. Clinimix for nutritional support. Morphine for pain management. Additional plan as per the hospital course. Dietary Evaluation Review Comments: Nutrition Recommendation: 1) TF Jevity 1.2Cal @ 50ml/hr x 24hr (goal) along with Pro-stat 1 pk daily. Start @ 20ml/hr, increase 10ml/hr Q4H until goal is reached. TF @ goal volume along with Pro-Stat provide 1540 kcal (100% energy needs), 82 gm protein (100% protein needs), 968 ml free water. 2) Water flush 100ml Q4H if allowed, adjust PRN 3) TPN if NPO >7 days 4) Monitor NPO status, lab values, wt trend, I/O Expected Outcomes/Goals: Lab values to improve Fu 2-3 days Plan discussed with: SKYE Alonso MD Feb 12, 2025 14:01
--- NOTE | 2025-02-12 21:05 | PRN ---
Misceleneous Note Note Note Declaration Summary: Notified by the nurse that the patient was in asystole and unresponsive . Detailed bedside examination revealed: -The patient was unresponsive to verbal or painful stimuli. -Spontaneous Heart and lung sounds are absent. -No spontaneous cardiac or respiratory activity noted over 5 minutes. -No corneal pupillary reflex present while checked twice. -Pupils are fixed and dilated over the examination period. The patient was pronounced clinically at 08:56 PM of date-02/12/2025 by Ifeanyi Hinds MD, resident. Patient's family and patient's nurse were updated by the healthcare team. Appropriate and empathic condolences were provided to the patient's dear ones. IFEANYI HINDS RESIDENT Feb 12, 2025 21:05
== END 2025-02-12 20:56 | DRG 720 ==
LOC: ER 22:18 → EDBD 22:18 → OVERFLOW 02-03 02:50 → ICU WEST 02-03 03:10 → TELE-WESTW 02-09 18:11 → WEST WING 02-12 16:53 → TELE-WESTW 02-12 20:05
PROVIDERS: ADMIT Internal Medicine Pulmonary Disease; ATTEND Internal Medicine Pulmonary Disease
PROC: 5A12012 Performance of Cardiac Output, Single, Manual (ICD-10-PCS; principal; 2025-02-02)
PROC: 5A1955Z Respiratory Ventilation, Greater than 96 Consecutive Hours (ICD-10-PCS; 2025-02-02)
PROC: 5A2204Z Restoration of Cardiac Rhythm, Single (ICD-10-PCS; 2025-02-02)
PROC: 0BH17EZ Insertion of Endotracheal Airway into Trachea, Via Natural or Artificial Opening (ICD-10-PCS; 2025-02-02)
PROC: 06HY33Z Insertion of Infusion Device into Lower Vein, Percutaneous Approach (ICD-10-PCS; 2025-02-02)
PROC: 5A12012 Performance of Cardiac Output, Single, Manual (ICD-10-PCS; 2025-02-04)
DX: A41.9 Sepsis, unspecified organism (principal); I46.9 Cardiac arrest, cause unspecified; G93.6 Cerebral edema; J15.69 Pneumonia due to other Gram-negative bacteria; J96.01 Acute respiratory failure with hypoxia; K72.01 Acute and subacute hepatic failure with coma; J15.9 Unspecified bacterial pneumonia; N17.0 Acute kidney failure with tubular necrosis; G93.41 Metabolic encephalopathy; I47.10 Supraventricular tachycardia, unspecified; R65.21 Severe sepsis with septic shock; R57.0 Cardiogenic shock; I21.4 Non-ST elevation (NSTEMI) myocardial infarction; E87.4 Mixed disorder of acid-base balance; Z66 Do not resuscitate; E87.6 Hypokalemia; E88.09 Other disorders of plasma-protein metabolism, not elsewhere classified; G93.5 Compression of brain; G93.1 Anoxic brain damage, not elsewhere classified; I49.01 Ventricular fibrillation; R73.9 Hyperglycemia, unspecified; I45.10 Unspecified right bundle-branch block; R74.01 Elevation of levels of liver transaminase levels; H57.02 Anisocoria; N18.9 Chronic kidney disease, unspecified; I27.20 Pulmonary hypertension, unspecified; I50.33 Acute on chronic diastolic (congestive) heart failure; Z99.11 Dependence on respirator [ventilator] status; Z79.1 Long term (current) use of non-steroidal anti-inflammatories (NSAID); Z79.899 Other long term (current) drug therapy; E87.20 Acidosis, unspecified
CPT/HCPCS: 36415; 36556; 36600; 70450; 71045; 80048; 80053; 80202; 80307; 80320; 81001; 82310; 82805; 82962; 83036; 83605; 83690; 83735; 83880; 84100; 84132; 84439; 84443; 84478; 84481; 84484; 85007; 85025; 85027; 85610; 85730; 86850; 86900; 86901; 87040; 87070; 87077; 87081; 87086; 87186; 87205; 92950; 93005; 93306; 93925; 94002; 94003; 95819; 96361; 96365; 96375; 99291; G0378; J0131; J0169; J1815; J2470; J2704; J3480; J7060